=== PATIENT | male | born 1950 | race Caucasian/White ===

== ENCOUNTER 2022-10-09 08:15 | Outpatient (REF) | payer MEDICARE, SELFPAY ==
[2022-10-09 11:19] LABS: MANUAL DIFF FLAG NO
[2022-10-09 11:26] LABS: Appearance Urine Clear; Color Urine Yellow; Glucose Urine UA Negative (Negative); Leukocyte Esterase Urine Negative (Negative); Nitrite Urine Negative (Negative); Urine Blood Negative (Negative); Urine Ketones Negative (Negative); Urine Protein Negative (Neg-Trace)
[2022-10-09 11:32] LABS: Basophils Absolute Auto 0.1 X10*3/uL (0.0-0.2); Basophils Percent Auto 0.9 % (0-2); Eosinophils Absolute Auto 0.3 X10*3/uL (0.0-0.4); Eosinophils Percent Auto 4.4 % (0-4); Hematocrit 47.5 % (42.0-52.0); Hemoglobin 15.5 g/dl (14.0-18.0); Imm Gran Abs Auto 0.02 X10*3/uL (0.00-0.03); Imm Gran Pct Auto 0.3 % (0.0-0.4); Lymphocytes Absolute Auto 2.2 X10*3/uL (1.2-4.9); Lymphocytes Percent Auto 33.1 % (20-40); Mean Corpuscular HGB Conc 32.6 g/dl (31.0-36.0); Mean Corpuscular Hemoglobin 30.3 pg (27.0-33.0); Monocytes Absolute Auto 0.8 X10*3/uL (0.1-1.2); Monocytes Percent Auto 11.5 % (2-11); Neutrophils Absolute Auto 3.2 x10*3/uL (2.0-8.3); Neutrophils Percent Auto 49.8 % (45-73); Platelet Count 227 X10*3/uL (160-400); Red Blood Count 5.11 X10*6/uL (4.60-5.80); Red Cell Distribution Width 13.4 % (11.0-16.0); White Blood Count 6.5 X10*3/uL (4.8-10.8)
[2022-10-09 12:04] LABS: Alanine Aminotransferase 54 U/L (0-40); Albumin Level 4.3 g/dL (3.5-5.0); Alkaline Phosphatase 66 U/L (39-117); Anion Gap 11 (12-20); Aspartate Amino Transferase 35 U/L (5-37); Bilirubin Total 0.7 mg/dL (0.0-1.0); Blood Urea Nitrogen 15 mg/dL (9-16); Calcium 9.2 mg/dL (8.4-10.2); Carbon Dioxide 28 mmol/L (22-29); Chloride 106 mmol/L (96-108); Cholesterol 169 mg/dL; Estimated Glomerular Filt Rate > 60; Glucose Fasting 97 mg/dL (60-99); HDL Cholesterol 35 mg/dL; LDL Cholesterol Calculated 110 mg/dl; Potassium 4.4 mmol/L (3.3-5.1); Sodium 141 mmol/L (135-145); Triglycerides 121 mg/dL
[2022-10-09 12:06] LABS: Prostate Specific Antigen Scr 2.62 ng/mL (<0.05-4.0)
[2022-10-09 12:18] LABS: Erythrocyte Sedimentation Rate 16 MM/HR (0-15)
[2022-10-09 12:28] LABS: Microalbumin Urine < 5.0 mg/L
== END 2022-10-09 08:16 | disposition home or self-care (01) ==
LOC: HO.WFDLDS 08:15
PROVIDERS: Visit Provider Family Medicine
DX: Z00.00 Encounter for general adult medical examination without abnormal findings (principal); Z12.5 Encounter for screening for malignant neoplasm of prostate; M25.531 Pain in right wrist; I10 Essential (primary) hypertension
CPT/HCPCS: 36415; 80053; 80061; 81003; 82043; 84153; 84443; 85025; 85652

== ENCOUNTER 2023-02-06 08:55 | Outpatient (REF) | payer MEDICARE, SELFPAY ==
[2023-02-06 12:46] LABS: Alanine Aminotransferase 22 U/L (0-40); Alkaline Phosphatase 53 U/L (39-117); Anion Gap 11 (12-20); Aspartate Amino Transferase 27 U/L (5-37); Bilirubin Total 0.6 mg/dL (0.0-1.0); Blood Urea Nitrogen 17 mg/dL (9-16); Calcium 8.7 mg/dL (8.4-10.2); Carbon Dioxide 24 mmol/L (22-29); Chloride 108 mmol/L (96-108); Cholesterol 106 mg/dL; Estimated Glomerular Filt Rate > 60; Glucose Fasting 100 mg/dL (60-99); HDL Cholesterol 50 mg/dL; LDL Cholesterol Calculated 44 mg/dl; Potassium 4.3 mmol/L (3.3-5.1); Sodium 139 mmol/L (135-145); Total Protein 6.5 g/dL (6.5-8.0); Triglycerides 60 mg/dL
== END 2023-02-06 08:56 | disposition home or self-care (01) ==
LOC: HO.WFDLDS 08:55
PROVIDERS: Visit Provider Family Medicine
DX: Z00.00 Encounter for general adult medical examination without abnormal findings (principal); R47.01 Aphasia; E78.5 Hyperlipidemia, unspecified
CPT/HCPCS: 36415; 80053; 80061

== ENCOUNTER 2023-08-18 14:18 | Outpatient (AMB) | payer MEDICARE, SELFPAY ==
--- NOTE | 2023-08-18 14:19 | MHC.PC.OV ---
Vital Signs 08/18/23 14:24 Height 5 ft 4 in Weight 148 lb BMI 25.4 BP 138/78 Blood Pressure Location Lt brachial Position Sitting Pulse 85 Pulse Source Pulse Oximeter Pulse Oximetry (%) 99 Oxygen Delivery Method Room Air Intake Visit Reasons: f/u chronic conditions Intake Note: Patient is here to follow up on chronic conditions. Allergies amoxicillin Allergy (Mild, Verified 08/18/23 14:25) Rash Penicillins Allergy (Mild, Verified 08/18/23 14:25) Rash Tobacco use date assessed: 08/18/23 Fall risk assessment: 1 Fall in past year Last assessed Fall Risk: 08/18/23 HPI f/u chronic conditions HPI Details 72 y/o male presents to f/u chronic conditions. Blood pressure today 138/78. He is on metoprolol 12.5mg daily. Pt has a hx of COPD. Calcific coronary artery disorder PFSH Social History Housing: House Patient Tobacco Use Status: Former Tobacco user e-Cigarette/Vaping Use: Never Used service: No Current occupational status: retired Cognitive needs: No Hearing needs: Yes Vision needs: No Questionnaire Thrive Questionnaire Date Thrive assessed: 10/07/22 JORDON-7 AMB Questionnaire JORDON-7 Date JORDON - 7 assessed: 10/08/22 Source: Developed by Drs. Emanuel Gates, Kristina Hermosillo, Jett Blankenship and colleagues, with an educational angel from [employer]. Physical exam (Primary Care) Vital Signs: Last Vital Signs Pulse 85 08/18/23 14:24 BP 138/78 08/18/23 14:24 Pulse Ox 99 08/18/23 14:24 Oxygen Delivery Method Room Air 08/18/23 14:24 BMI result Body Mass Index 25.4 Tobacco/Smoking Status: Tobacco use Status Tobacco use date assessed 08/18/23 08/18/23 14:27 Patient Tobacco Use Status Former Tobacco user 08/18/23 14:24 e-Cigarette/Vaping Use Never Used 08/18/23 14:24 Thrive Assessment: Date of Thrive Assessment Date Thrive assessed 10/07/22 08/18/23 14:24 Assessment and Plan Assessment & Plan (1) Hypertension: Code(s): I10 - Essential (primary) hypertension Plan: Fair?control. Goal?is?less?than?130/80 Continue?current?medication?regimen Will?follow-up?in?3?months (2) COPD (chronic obstructive pulmonary disease): Code(s): J44.9 - Chronic obstructive pulmonary disease, unspecified Plan: Currently?stable Lungs?are?clear?bilaterally (3) Coronary artery disease: Code(s): I25.10 - Atherosclerotic heart disease of [place] coronary artery without angina pectoris Plan: Followed?by?Dr. Cortes, cardiology Recent?EKG?and?stress?test?were?okay Stable Did?not?tolerate?Repatha?or?statins Continue?Zetia.??Advised?aspirin Follow-up?with?Cardiology?as?recommend (4) Hyperlipidemia: Code(s): E78.5 - Hyperlipidemia, unspecified Plan: Does?not?tolerate?statins?or?Repatha He?is?on?Zetia Will?check?lipids?prior?to?next?visit (5) Difficulty sleeping: Code(s): G47.9 - Sleep disorder, unspecified Plan: Can?try?hydroxyzine Otherwise?using?lorazepam Stable (6) Right shoulder pain: Code(s): M25.511 - Pain in right shoulder Plan: Ongoing?right?shoulder?and?right?neck?pain. Referred?for?physical?therapy Can?use?Aspercreme Ice/heat (7) Neck pain on right side: Code(s): M54.2 - Cervicalgia Plan: As?above Orders: Orders PT Evaluation and Treatment Today M25.511 - Pain in right shoulder, M54.2 - Cervicalgia Comprehensive [place]. Panel Fast Today Z00.00 - Encounter for general adult medical examination without abnormal findings Lipid Panel Today Z00.00 - Encounter for general adult medical examination without abnormal findings Medications: New hydroxyzine HCl 50 mg PO BEDTIME 30 tabs 0RF 30 days Coding Level of Care Code Est Pt Level 4 (86425) Diagnoses Hypertension I10 COPD (chronic obstructive pulmonary disease) J44.9 Coronary artery disease I25.10 Hyperlipidemia E78.5 Difficulty sleeping G47.9 Right shoulder pain M25.511 Neck pain on right side M54.2
[2023-08-18 14:24] VITALS: BP 138/78; PULSE 85; O2SAT 99; BMI 25.4
== END 2023-08-18 15:29 | disposition home or self-care (01) ==
PROVIDERS: PCP Family Medicine; Visit Provider Family Medicine
DX: I10 Essential (primary) hypertension (principal); J44.9 Chronic obstructive pulmonary disease, unspecified; I25.10 Atherosclerotic heart disease of native coronary artery without angina pectoris; E78.5 Hyperlipidemia, unspecified; G47.9 Sleep disorder, unspecified; M25.511 Pain in right shoulder; M54.2 Cervicalgia
CPT/HCPCS: 99214

== ENCOUNTER 2023-11-16 07:01 | Outpatient (REF) | payer MEDICARE, SELFPAY ==
[2023-11-16 12:08] LABS: Alanine Aminotransferase 31 U/L (0-40); Albumin Level 4.3 g/dL (3.5-5.0); Alkaline Phosphatase 53 U/L (39-117); Anion Gap 11 (12-20); Aspartate Amino Transferase 26 U/L (5-37); Bilirubin Total 0.5 mg/dL (0.0-1.0); Blood Urea Nitrogen 18 mg/dL (9-16); Calcium 9.4 mg/dL (8.4-10.2); Carbon Dioxide 29 mmol/L (22-29); Chloride 106 mmol/L (96-108); Cholesterol 237 mg/dL (<200); Estimated Glomerular Filt Rate > 60; Glucose Fasting 92 mg/dL (60-99); HDL Cholesterol 46 mg/dL (>40); LDL Cholesterol Calculated 159 mg/dL (<100); Potassium 4.3 mmol/L (3.3-5.1); Sodium 142 mmol/L (135-145); Total Protein 7.4 g/dL (6.5-8.0); Triglycerides 161 mg/dL (<150)
== END 2023-11-16 07:02 | disposition home or self-care (01) ==
LOC: HO.WFDLDS 07:01
PROVIDERS: Visit Provider Family Medicine
DX: Z00.00 Encounter for general adult medical examination without abnormal findings (principal)
CPT/HCPCS: 36415; 80053; 80061

== ENCOUNTER 2023-11-18 14:22 | Outpatient (AMB) | payer MEDICARE, SELFPAY ==
--- NOTE | 2023-11-18 14:24 | MHC.PC.OV ---
Vital Signs 11/18/23 14:25 Height 5 ft 4 in Weight 155 lb 4 oz BMI 26.6 BP 124/76 Blood Pressure Location Rt brachial Position Sitting Respiration 13 Pulse 76 Pulse Source Pulse Oximeter Temp 97.6 F Temp Source Temporal Artery Scan Pulse Oximetry (%) 98 Oxygen Delivery Method Room Air Intake Visit Reasons: f/u chronic conditions Eligibility Technician Required: No Accompanied by: Self / Same As Patient Allergies amoxicillin Allergy (Mild, Verified 11/18/23 14:33) Rash Penicillins Allergy (Mild, Verified 11/18/23 14:33) Rash Tobacco use date assessed: 11/18/23 Fall risk assessment: No Falls in past year Last assessed Fall Risk: 11/18/23 Dental Screening Dental Screen Date: 11/18/23 Did you have a dental visit in the last 12 months?: Yes Did you have a dental problem in the last 6 months where you did not have access to dental care?: No Was dental information given to patient?: Patient has dentist HPI f/u chronic conditions HPI Details 73 y/o male with known CAD presents to f/u chronic conditions. Blood pressure today 124/76. He is on metoprolol 12.5mg daily. Labs were drawn 11/16/23. Reviewed labs with pt. Triglycerides 161. TC 237. LDL 159. HDL 46. He states he continues to tolerate ezetimibe 10mg daily. HPI Comments History of Present Illness Details Documentation assistance for Lucho Hairston MD, was provided by Yang Sharma, Senior Commercial Loan Officer on 11/18/2023 2:46 PM EST. I, Dr. Hairston, have read, observed, and verified documentation. [facility] Medical History No pertinent past medical history Surgical History No pertinent past surgical history Family History Other Substance abuse Social History Housing: House Patient Tobacco Use Status: Former Tobacco user e-Cigarette/Vaping Use: Never Used service: No Current occupational status: retired Cognitive needs: No Hearing needs: No Vision needs: No Questionnaire Thrive Questionnaire Date Thrive assessed: 10/07/22 JORDON-7 AMB Questionnaire JORDON-7 Date JORDON - 7 assessed: 10/08/22 Source: Developed by Drs. Emanuel Gates, Kristina Hermosillo, Jett Blankenship and colleagues, with an educational angel from [employer]. Review of Systems Const Denies chills, Denies fatigue, Denies fever(s), Denies headache(s) and Denies weakness ENT Denies dizziness and Denies headache(s) Card Denies dyspnea Resp Denies cough, Denies dyspnea, Denies wheezing and Denies other (shortness of breath) Musc Denies numbness and Denies tingling Neuro Denies dizziness, Denies headache(s), Denies numbness, Denies tingling and Denies weakness Psych Denies anxiety and Denies depression Endo Denies fatigue Aller/Immun Denies wheezing Physical exam (Primary Care) Vital Signs: Last Vital Signs Temp 97.6 F 11/18/23 14:25 Pulse 76 11/18/23 14:25 Resp 13 11/18/23 14:25 BP 124/76 11/18/23 14:25 Pulse Ox 98 11/18/23 14:25 Oxygen Delivery Method Room Air 11/18/23 14:25 BMI result Body Mass Index 26.6 Tobacco/Smoking Status: Tobacco use Status Tobacco use date assessed 11/18/23 11/18/23 14:36 Patient Tobacco Use Status Former Tobacco user 11/18/23 14:36 e-Cigarette/Vaping Use Never Used 11/18/23 14:36 Thrive Assessment: Date of Thrive Assessment Date Thrive assessed 10/07/22 11/18/23 14:36 Const General: well developed; No acute distress Nutritional Appearance: well nourished Orientation/consciousness: patient oriented x3 HENMT Head: Yes normocephalic and Yes atraumatic Eyes General: appearance normal, both eyes and all related structures Pupils: Equal, round and reactive pupils present EOM: EOMs intact bilaterally Resp Effort & Inspection: normal respiratory effort Neuro General: patient oriented x3 and gait normal Cranial nerves: Yes Equal, round and reactive pupils present Psych Affect: normal affect Assessment and Plan Assessment & Plan (1) Hypertension: Code(s): I10 - Essential (primary) hypertension Plan: Appears?well?controlled.??Goal?is?less?than?130/80?for?patient?with?coronary?artery?disease Continue?current?medication?regimen (2) Hyperlipidemia: Code(s): E78.5 - Hyperlipidemia, unspecified Plan: Patient?was?unable?to?tolerate?statins?and?Repatha. He?stopped?these?and?has?only?been?on?Zetia. Lipid?levels?now?much?higher?and?I?made?patient?aware?of?this. He?seems?to?minimize?the?gravity?of?this. Advised?he?discuss?further?with? Continue?Zetia Continue?to?work?at?diet?exercise?and?weight?control. (3) Coronary artery disease: Code(s): I25.10 - Atherosclerotic heart disease of [place] coronary artery without angina pectoris Plan: As?above,?follow-up?with?Dr. Cortes (4) Difficulty sleeping: Code(s): G47.9 - Sleep disorder, unspecified Plan: Had?difficulty?with?sleep?at?last?visit.??He?is?already?on?lorazepam. Gave?him?a?script?for?hydroxyzine.??He?says?this?caused?strange?dreams. He?will?try?breaking?hydroxyzine?in?half Continue?lorazepam?as?prescribed Coding Level of Care Code Est Pt Level 4 (67828) Diagnoses Hypertension I10 Hyperlipidemia E78.5 Coronary artery disease I25.10 Difficulty sleeping G47.9
[2023-11-18 14:25] VITALS: BP 124/76; PULSE 76; RESP 13; TEMP 36.4; O2SAT 98; BMI 26.6
== END 2023-11-18 14:56 | disposition home or self-care (01) ==
PROVIDERS: PCP Family Medicine; Visit Provider Family Medicine
DX: I10 Essential (primary) hypertension (principal); E78.5 Hyperlipidemia, unspecified; I25.10 Atherosclerotic heart disease of native coronary artery without angina pectoris; G47.9 Sleep disorder, unspecified
CPT/HCPCS: 99214

== ENCOUNTER 2023-12-08 15:56 | Outpatient (REF) | payer MEDICARE, SELFPAY ==
--- NOTE | ~2023-12-08 | XR_ITS ---
EXAMINATION: XR HAND, LEFT CLINICAL INFORMATION: Pain COMPARISON: None available. TECHNIQUE: PA, lateral, and oblique views of the left hand. FINDINGS: Visualized portion of the distal radius and ulna demonstrate no fracture. Carpal rows are maintained. No carpal, metacarpal or phalangeal fracture. Mild degenerative changes of scattered IP joints. No localized soft tissue swelling. No radiopaque foreign body. XR/XR hand LT min 3V IMPRESSION: Mild degenerative changes of the left hand. No fracture.
== END 2023-12-08 15:57 | disposition home or self-care (01) ==
LOC: HO.HOSX 15:56
PROVIDERS: Visit Provider Orthopaedic Surgery
DX: M79.642 Pain in left hand (principal)
CPT/HCPCS: 73130

== ENCOUNTER 2023-12-09 09:55 | Outpatient (AMB) | payer MEDICARE, SELFPAY ==
--- NOTE | 2023-12-09 09:55 | MHC.OFFVIS ---
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 States pain started about 6 months ago. Pain is mainly on his ring finger where his knuckle is. He states sometimes it will lock in place. Pt denies any previous injury to it. Pt also denies any numbness or tingling. 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 He complains of pain primarily in his left ring finger. He says his ring finger occasionally locks at time, which is painful. He denies any falls or known injury. He denies any numbness or tingling. He has CAD & COPD. PFS Medical History No pertinent past medical history Surgical History No pertinent past surgical history Family History Other Substance abuse Social History (Updated 12/09/23 @ 10:06 by Juliet Lee CMA) Housing: House Patient Tobacco Use Status: Former Tobacco user e-Cigarette/Vaping Use: Never Used service: No Current occupational status: retired Current occupation: Left hand dominant Cognitive needs: No Hearing needs: No Vision needs: No Review of Systems Const All systems reviewed & are unremarkable except as noted in HPI and below Physical Exam Const General: cooperative, healthy appearing and no acute distress Orientation/consciousness: patient oriented x3 HEENT Head: Yes normocephalic and Yes atraumatic Eyes EOM: EOMs intact bilaterally Resp Effort & Inspection: normal respiratory effort and able to speak in complete sentences Cardio Jugular venous distension: no JVD Skin General skin exam: turgor normal Rashes: no rashes Neuro General: patient oriented x3 Extrem Other: Evaluation of Left Upper Extremity: The patient is alert, oriented, and in no acute distress Neuro: Median, Ulnar, Radial nerves motor and sensory intact and sensation is normal to the tips of all digits Vascular: Cap refill brisk ROM: He can make a fist and extend all his digits Some stiffness of the ring finger, likely from disuse Visible catching of the left ring finger Tender over the a1 lizett of the ring finger Skin: No lacerations or abrasions. General: No Ecchymosis. No Erythema or evidence of infection. Radiographs: 3 views of the left hand were taken and viewed by me today in clinic. They show no fractures or dislocations. Some early arthritic changes in multiple DIP joints and some early basal joint osteoarthritis Psych Appearance: grossly normal Affect: normal affect Attitude: cooperative Office Procedures Fracture Care Details: No fracture, injection Fracture Billing Code: Fracture Billing Code Assessment & Plan Assessment & Plan (1) Trigger finger, left ring finger: Code(s): M65.342 - Trigger finger, left ring finger (2) Coronary artery disease: Code(s): I25.10 - Atherosclerotic heart disease of [place] coronary artery without angina pectoris (3) COPD (chronic obstructive pulmonary disease): Code(s): J44.9 - Chronic obstructive pulmonary disease, unspecified Plan Assessment & Plan: 1. Left ring finger trigger finger I educated him about this condition I discussed operative and non-operative treatment options The patient would like to proceed with an injection I discussed activity modification, he should work on gentle ROM exercises at home to reduce his finger stiffness Injection #1: The risks and benefits of a steroid injection including but not limited to risk of damage to blood vessels, nerves, tendons, infection, skin bleaching, failure to improve symptoms, increased pain, and possible need for further injections or other intervention were discussed with the patient and the patient wishes to proceed with the steroid injection. Once consent was obtained, I sterilely prepped the area over the A1 lizett of the flexor tendon sheath of the Left ring finger. I then injected the flexor tendon sheath with a combination of 1 mL of dexamethasone (4mg/ml), and 1% lidocaine. The patient tolerated the procedure well with no complications. If the patient continues to have locking and catching 4-6 weeks following this injection, they may call to schedule appointment to discuss alternative treatment options Follow-up prn Scribed for Monique Hargrove MD by Andrea Perez, medical detail representative, on 12/09/23 at 10:55 AM, EST. Orders: Orders XR hand LT min 3V Today M79.642 - Pain in left hand Coding Level of Care Code New Pt Level 3 (43912) Diagnoses Trigger finger, left ring finger M65.342 Coronary artery disease I25.10 COPD (chronic obstructive pulmonary disease) J44.9 CPT Codes Fracture Care - Fracture Billing Code: Fracture Billing Code ([id number])
--- OUTSIDE RECORDS SUMMARY | 2023-12-09 09:56 | XMS_ITS | Continuity of Care Document ---
Author Name Unknown Organization [facility] Address [address] [place] [address]- Care Team Providers Care Manager Freelance Name Role Phone Reynold Pratt MD Primary Care Physician [place] [facility] [place] - [place]20 [facility] [address] [place] [id number]- [facility] Allergies, Adverse Reactions, Alerts Substance Reaction Severity Status penicillin Persistent Moderate Active Immunizations Given and Recorded Vaccine Date Status Refusal Reason influenza virus vaccine, inactivated 05/23/19 Melo rded Medications aspirin 81 mg oral delayed release tablet 81 mg, 1, tablet, By Mouth, Daily, # 90 tablet, Refills 0, Maintenance, 02/08/20 13:52:00 EDT Start Date: 02/08/20 Status: Ordered Bilberry By Mouth, Daily, 0 Refills, Maintenance, 02/07/19 10:10:26 EDT Start Date: 02/07/19 Status: Ordered ezetimibe 10 mg oral tablet 1 tablet = 10 mg, By Mouth, Daily, # 90 tablet, 1 Refills, Soft Stop, 12/19/19 10:55:00 EDT, [id number], 164, cm, 11/28/19 15:20:00 EDT, Height, 66, kg, 11/28/19 15:20:00 EDT, Dry Weight Start Date: 12/19/19 Status: Ordered gabapentin 600 mg oral tablet 1 tablet, By Mouth, 2 times a day, # 60 tablet, 3 Refills, Soft Stop, 12/19/19 20:30:00 EDT, [facility]/pharmacy #[id number], 164, cm, 11/28/19 15:20:00 EDT, Height, 66, kg, 11/28/19 15:20:00 EDT, Dry Weight Start Date: 12/19/19 Status: Ordered LORazepam 1 mg oral tablet 1 tablet = 1 mg, By Mouth, Daily at bedtime, PRN as needed for anxiety, # 30 tablet, 0 Refills, Soft Stop, 02/29/20 7:52:00 EDT, [facility] # [id number], 164, cm, 02/08/20 13:38:00 EDT, Height, 66, kg,11/28/19 15:20:00 EDT, Dry Weight Start Date: 02/29/20 Status: Ordered melatonin 10 mg oral tablet, extended release 1 tablet = 10 mg, By Mouth, Daily at bedtime, PRN as needed for sleep, # 60 tablet, 0 Refills, Maintenance, 02/07/19 10:10:39 EDT, ER Tablet Start Date: 02/07/19 Status: Ordered PreserVision AREDS 2 1 capsule, By Mouth, Daily, 0 Refills, Maintenance, 02/07/19 10:10:19 EDT Start Date: 02/07/19 Status: Ordered Repatha 140 mg/mL subcutaneous solution = 140 mg, Subcutaneous Infusion, Every 14 days, # 2 each, 0 Refills, Maintenance, 02/17/20 11:16:00EDT, [facility] # [id number], 164, cm, 02/08/20 13:38:00 EDT, Height, 66, kg, 11/28/19 15:20:00 EDT, Dry Weight Start Date: 02/17/20 Status: Ordered Repatha 140 mg/mL subcutaneous solution = 140 mg, Subcutaneous Infusion, Every 14 days, # 2 each, 6 Refills, Maintenance, 02/09/20 10:36:00EDT, [facility] #[id number], 164, cm, 02/08/20 13:38:00 EDT, Height, 66, kg, 11/28/19 15:20:00 EDT, DryWeight Start Date: 02/09/20 Status: Ordered Repatha SureClick 140 mg/mL subcutaneous solution = 140 mg, Subcutaneous Infusion, Every 14 days, # 2 each, 0 Refills, Maintenance, 02/08/20 15:51:00EDT, [facility][id number], 164, cm, 02/08/20 13:38:00 EDT, Height, 66, kg, 11/28/19 15:20:00 EDT, DryWeight Start Date: 02/08/20 Status: Ordered tamsulosin 0.4 mg oral capsule 0.4 mg, 1, capsule, By Mouth, Daily at bedtime, # 90 capsule, Refills 1, Tot. Refills 1, Soft Stop,12/30/19 10:36:00 EDT, Route to Pharmacy Electronically, [facility]/pharmacy #[id number], 164, cm, 11/28/19 15:20:00 EDT, Height, 66, kg, 11/28/19 15:20:00 EDT, Dry... Start Date: 12/30/19 Status: Ordered Problem List Condition Effective Dates Status Health Status Inform ant Anxiety(Confirmed) Active Arteriosclerotic vascular disease(Confirmed) Active Calcification of coronary artery(Confirmed) Active Constipation(Confirmed) Active Sleep disturbance(Confirmed) Active Rash(Confirmed) Active Gastroesophageal reflux disease(Confirmed) Active Hyperlipidemia(Confirmed) Active Inguinal hernia(Confirmed) Active Insomnia(Confirmed) Active Pruritus(Confirmed) Active Neck pain(Confirmed) Active Papule(Confirmed) Active Neuropathic pain of hand(Confirmed) Active Prostatism(Confirmed) Active Seborrheic dermatitis(Confirmed) Active Right shoulder pain(Confirmed) Active Tinnitus(Confirmed) Active Tobacco use and exposure - finding(Confirmed) Active Social History Social History Type Response Smoking Status Former smoker, quit more than 30 days ago entered on: 03/03/19 Sex
--- OUTSIDE RECORDS SUMMARY | 2023-12-09 09:56 | XMS_ITS | Continuity of Care Document ---
Author Name Unknown Organization [facility] Address [address] [place] [address]- Care Team Providers Care Liquor Rectifier Name Role Phone Reynold Pratt MD Primary Care Physician [place] [facility] [place] 12/25/[place] [facility] [address] [address]- [facility] Attending Physician: Andrea Peterson MD Admitting Physician: Andrea Peterson MD Referring Physician: Andrea Peterson MD Allergies, Adverse Reactions, Alerts Substance Reaction Severity Status penicillin Persistent Moderate Active Immunizations Given and Recorded Vaccine Date Status Refusal Reason influenza virus vaccine, inactivated 05/23/19 Melo rded Medications Bilberry By Mouth, Daily, 0 Refills, Maintenance, 02/07/19 10:10:26 EDT Start Date: 02/07/19 Status: Ordered ezetimibe 10 mg oral tablet 1 tablet = 10 mg, By Mouth, Daily, # 90 tablet, 1 Refills, Soft Stop, 12/19/19 10:55:00 EDT, [id number], 164, cm, 11/28/19 15:20:00 EDT, Height, 66, kg, 11/28/19 15:20:00 EDT, Dry Weight Start Date: 12/19/19 Status: Ordered gabapentin 600 mg oral tablet 1 tablet, By Mouth, 2 times a day, # 60 tablet, 3 Refills, Soft Stop, 12/19/19 20:30:00 EDT, [facility]/pharmacy #[id number], 164, cm, 11/28/19 15:20:00 EDT, Height, 66, kg, 11/28/19 15:20:00 EDT, Dry Weight Start Date: 12/19/19 Status: Ordered LORazepam 1 mg oral tablet 1 tablet = 1 mg, By Mouth, Daily at bedtime, PRN as needed for anxiety, # 30 tablet, 0 Refills, Soft Stop, 12/19/19 20:32:00 EDT, [facility]/pharmacy #[id number], 164, cm, 11/28/19 15:20:00 EDT, Height, 66, kg, 11/28/19 15:20:00 EDT, Dry Weight Start Date: 12/19/19 Status: Ordered melatonin 10 mg oral tablet, extended release 1 tablet = 10 mg, By Mouth, Daily at bedtime, PRN as needed for sleep, # 60 tablet, 0 Refills, Maintenance, 02/07/19 10:10:39 EDT, ER Tablet Start Date: 02/07/19 Status: Ordered NuLYTELY with Flavor Packs oral powder for reconstitution 240 mL, By Mouth, Every 10 minutes, # 1 each, 0 Refills, Maintenance, 10/14/19 12:32:00 EST, REC Powder, [facility], test date 11/22/19, 240 mL By Mouth Every 10 minutes, 163, cm, 10/11/19 14:44:00 EST, Height, 66, kg, 09/26/19 22:40:00 EST,... Start Date: 10/14/19 Status: Ordered PreserVision AREDS 2 1 capsule, By Mouth, Daily, 0 Refills, Maintenance, 02/07/19 10:10:19 EDT Start Date: 02/07/19 Status: Ordered tamsulosin 0.4 mg oral capsule See Instructions, TAKE 1 CAPSULE BY MOUTH EVERYDAY AT BEDTIME, # 30 capsule, Refills 1, Tot. Refills 1, Soft Stop, 06/28/19 19:28:03 EDT, Instructions Replace Required Details, Route to Pharmacy Electronically, [id number], CV... Start Date: 06/28/19 Status: Ordered Problem List Condition Effective Dates [...]
--- OUTSIDE RECORDS SUMMARY | 2023-12-09 09:56 | XMS_ITS | Continuity of Care Document ---
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 Name Role Phone Reynold Pratt MD Primary Care Physician [place] [facility] [place](s): 10/17/19 - 10/17/[address] [address]- [facility] Attending Physician: Reynold Pratt MD Allergies, Adverse Reactions, Alerts Substance Reaction Severity Status penicillin Persistent Moderate Active Immunizations Given and Recorded Vaccine Date Status Refusal Reason influenza virus vaccine, inactivated 05/23/19 Melo rded Medications Azithromycin 5 Day Dose Pack 250 mg oral tablet 1 pack/packet, By Mouth, Once, as directed on package labeling, # 6 tablet, 0 Refills, Soft Stop, 10/11/19 15:12:00 EST, Tablet, [facility], 163, cm, 10/11/19 14:44:00 EST, Height, 66, kg,09/26/19 22:40:00 EST, Dry Weight Start Date: 10/11/19 Status: Ordered Bilberry 0 Refills, Maintenance, 02/07/19 10:10:26 EDT Start Date: 02/07/19 Status: Ordered CeleBREX 200 mg oral capsule 1 capsule = 200 mg, By Mouth, 2 times a day, # 60 capsule, 0 Refills, Maintenance, 08/01/19 16:57:27 EST, Capsule Start Date: 08/01/19 Status: Ordered ezetimibe 10 mg oral tablet 1 tablet = 10 mg, By Mouth, Daily, # 90 tablet, 1 Refills, Soft Stop, 09/09/19 14:38:00 EST, [facility], 164, cm, 07/28/19 14:04:00 EST, Height Start Date: 09/09/19 Status: Ordered ezetimibe 10 mg oral tablet See Instructions, # 90 tablet, Refills 1 Tot. Refills 1, TAKE 1 TABLET BY MOUTH EVERY DAY, [facility]/pharmacy #[id number] Start Date: 05/03/19 Status: Ordered gabapentin 600 mg oral tablet 1 tablet, By Mouth, 2 times a day, # 60 tablet, Refills 3 Tot. Refills 3, [facility]/pharmacy #[id number] Start Date: 08/08/19 Status: Ordered ipratropium nasal 21 mcg/inh spray See Instructions, PRN Nasal Congestion, 1 spray each nostril BID, # 1 each, 4 Refills, Maintenance,06/15/19 13:47:40 EDT, 1 spray each nostril BID,PRN:Nasal Congestion Start Date: 06/15/19 Status: Ordered LORazepam 1 mg oral tablet 1 tablet = 1 mg, By Mouth, Daily at bedtime, PRN as needed for anxiety, # 30 tablet, 0 Refills, Soft Stop, 09/09/19 14:37:00 EST, [facility], 164, cm, 07/28/19 14:04:00 EST, Height Start Date: 09/09/19 Status: Ordered LORazepam 1 mg oral tablet See Instructions, TAKE 1 TABLET BY MOUTH AT BEDTIME NEEDED FOR ANIXETY, # 10 tablet, 0 Refills, Soft Stop, 06/29/19 15:01:00 EDT Start Date: 06/29/19 Status: Ordered melatonin 10 mg oral tablet, extended release 1 tablet = 10 mg, By Mouth, Daily at bedtime, PRN as needed for sleep, # 60 tablet, 0 Refills, Maintenance, 02/07/19 10:10:39 EDT, ER Tablet Start Date: 02/07/19 Status: Ordered mirtazapine 15 mg oral tablet 1 tablet = 15 mg, By Mouth, Daily at bedtime, # 30 tablet, 3 Refills, Maintenance, 08/20/19 2:00:34EST, Tablet, [facility]/pharmacy #[id number], 164, cm, 07/28/19 14:04:53 EST, Height Start Date: 08/20/19 Status: Ordered NuLYTELY with Flavor Packs oral powder for reconstitution 240 mL, By Mouth, Every 10 minutes, # 1 each, 0 Refills, Maintenance, 10/14/19 12:32:00 EST, REC Powder, [facility], test date 11/22/19, 240 mL [...] Replace Required Details, Route to Pharmacy Electronically, [id number], CV... Start Date: 06/28/19 Status: Ordered Problem List Condition Effective Dates Status Health Status Inform ant Anxiety(Confirmed) Active Arteriosclerotic vascular disease(Confirmed) Active Calcification of coronary artery(Confirmed) Active Constipation(Confirmed) Active Sleep disturbance(Confirmed) Active Rash(Confirmed) Active Gastroesophageal reflux disease(Confirmed) Active Hyperlipidemia(Confirmed) Active Inguinal hernia(Confirmed) Active Insomnia(Confirmed) Active Pruritus(Confirmed) Active Neck pain(Confirmed) Active Papule(Confirmed) Active Prostatism(Confirmed) Active Seborrheic dermatitis(Confirmed) Active Right shoulder pain(Confirmed) Active Tinnitus(Confirmed) Active Tobacco use and exposure - finding(Confirmed) Active Social History Social History Type Response Smoking Status Former smoker, quit more than 30 days ago entered on: 03/03/19 Sex
--- OUTSIDE RECORDS SUMMARY | 2023-12-09 09:56 | XMS_ITS | Continuity of Care Document ---
Author Name Unknown Organization [facility] Address [address] [place] [address]- Care Team Providers Care C Consultant Name Role Phone Reynold Pratt MD Primary Care Physician [place] [facility] [place] 10[place]/22 [facility] [address] [place] [address]- Attending Physician: Bert Song Admitting Physician: Bert Song Referring Physician: AdmtrBert Allergies, Adverse Reactions, Alerts Substance Reaction Severity Status amoxicillin Active penicillin Persistent Moderate Active Aleve Active Immunizations Given and Recorded Vaccine Date Status Refusal Reason [id number] bivalent booster vax 05/30/22 Recorded pneumococcal 20-valent conjugate vaccine 05/24/22 Recorded influenza virus vaccine, inactivated 05/24/22 Melo rded influenza virus vaccine, inactivated 05/28/21 Melo rded influenza virus vaccine, inactivated 05/07/20 Melo rded influenza virus vaccine, inactivated 05/23/19 Melo rded influenza virus vaccine, inactivated 06/04/18 Melo rded influenza virus vaccine, inactivated 06/12/08 Melo rded influenza virus vaccine, inactivated 06/17/07 Melo rded influenza virus vaccine, inactivated 08/06/06 Melo rded influenza virus vaccine, inactivated 07/11/05 Melo rded SARS-CoV-2 (COVID-19) mRNA-1273 vaccine 1 01/07/22 Given SARS-CoV-2 (COVID-19) mRNA-1273 vaccine 07/01/21 R ecorded SARS-CoV-2 (COVID-19) mRNA-1273 vaccine 2 07/01/21 Recorded SARS-CoV-2 (COVID-19) mRNA-1273 vaccine 11/26/20 R ecorded SARS-CoV-2 (COVID-19) mRNA-1273 vaccine 11/26/20 R ecorded SARS-CoV-2 (COVID-19) mRNA-1273 vaccine 11/05/20 R ecorded SARS-CoV-2 (COVID-19) mRNA-1273 vaccine 10/29/20 R ecorded SARS-CoV-2 (COVID-19) mRNA-1273 vaccine 10/29/20 R ecorded tetanus-diphtheria toxoids (Td) 3 12/23/21 Given tetanus-diphtheria toxoids (Td) 12/31/04 Recorded pneumococcal 23-valent vaccine 06/12/08 Recorded 1Result Comment: [facility] [id number] 2Result Comment: err 3Result Comment: [facility] [id number] Medications aspirin 81 mg oral delayed release tablet 81 mg, 1, tablet, By Mouth, Daily, # 90 tablet, Refills 0, Maintenance, 02/08/20 13:52:00 EDT Start Date: 02/08/20 Status: Ordered CoQ10 300 mg oral capsule 1 capsule = 300 mg, By Mouth, Daily, # 100 capsule, 1 Refills, Maintenance, 09/18/22 16:02:00 EST, Capsule, [facility]/pharmacy #0838, 163, cm, 09/18/22 15:16:00 EST, Height, 68, kg, 12/24/21 4:27:00 EDT, Dry Weight Start Date: 09/18/22 Status: Ordered ezetimibe 10 mg oral tablet 1 tablet, By Mouth, Daily, # 90 tablet, 1 Refills, Maintenance, 07/11/22 9:20:00 EDT, [facility], 163, cm, 07/02/22 9:14:00 EDT, Height, 68, kg, 12/24/21 4:27:00 EDT, Dry Weight Start Date: 07/11/22 Status: Ordered gabapentin 600 mg oral tablet 1 tablet, By Mouth, 2 times a day, # 180 tablet, 0 Refills, Maintenance, 09/02/22 13:11:00 EST, [facility], 163, cm, 07/18/22 14:00:00 EST, Height, 68, kg, 12/24/21 4:27:00 EDT, Dry Weight Start Date: 09/02/22 Status: Ordered ICaps AREDS 2 oral capsule 0 Refills, Maintenance, 07/01/22 12:43:00 EDT, Partial fill upon patient request if the prescription is for a schedule II opioid drug. Start Date: 07/01/22 Status: Ordered LORazepam 1 mg oral tablet 1 tablet = 1 mg, By Mouth, Daily at bedtime, PRN as needed for anxiety, # 30 tablet, 0 Refills, Soft Stop, 10/30/22 17:34:00 EST, [facility]/pharmacy #[id number], 163, cm, 09/18/22 15:16:00 EST, Height, 68, kg, 12/24/21 4:27:00 EDT, Dry Weight Start Date: 10/30/22 Status: Ordered melatonin 10 mg oral tablet, extended release 1 tablet = 10 mg, By Mouth, Daily at bedtime, PRN as needed for sleep, # 60 tablet, 0 Refills, Maintenance, 02/07/19 10:10:39 EDT, ER Tablet Start Date: 02/07/19 Status: Ordered Metoprolol Succinate ER 25 mg oral tablet, extended release 1 tablet, By Mouth, Daily, # 90 tablet, 0 Refills, Maintenance, 08/06/22 15:12:00 EST, [facility] #[id number], 163, cm, 07/18/22 14:00:00 EST, Height, 68, kg, 12/24/21 4:27:00 EDT, Dry Weight Start Date: 08/06/22 Status: Ordered omeprazole 20 mg oral enteric coated capsule 1 capsule, By Mouth, Daily, # 90 capsule, 0 Refills, Maintenance, 08/18/22 11:53:00 EST, [facility] 08884, 163, cm, 07/18/22 14:00:00 EST, Height, 68, kg, 12/24/21 4:27:00 EDT, Dry Weight Start Date: 08/18/22 Status: Ordered PreserVision AREDS 2 1 capsule, By Mouth, Daily, 0 Refills, Maintenance, 02/07/19 10:10:19 EDT Start Date: 02/07/19 Status: Ordered Repatha SureClick 140 mg/mL subcutaneous solution = 140 mg, Subcutaneous Injection, Every 14 days, # 2 each, 0 Refills, Maintenance, 07/24/22 6:25:00EST, [facility][id number], Partial fill upon patient request if the prescription is for a schedule II opioid drug., 163, cm, 07/18/22 14:00:00 EST,... Start Date: 07/24/22 Stop Date: 08/23/22 Status: Ordered rosuvastatin 10 mg oral tablet 1 tablet = 10 mg, By Mouth, Daily, # 90 tablet, 1 Refills, Maintenance, 09/18/22 16:02:00 EST, Tablet, [facility]acy #0838, 163, cm, 09/18/22 15:16:00 EST, Height, 68, kg, 12/24/21 4:27:00 EDT, Dry Weight Start Date: 09/18/22 Status: Ordered tamsulosin 0.4 mg oral capsule 1, capsule, By Mouth, Daily at bedtime, # 90 capsule, Refills 0, Maintenance, 08/18/22 11:53:00 EST, Route to Pharmacy Electronically, [facility] [id number], 163, cm, 07/18/22 14:00:00 EST, Height, 68, kg,12/24/21 4:27:00 EDT, Dry Weight Start Date: 08/18/22 Status: Ordered Vitamin B12 0 Refills, Maintenance, 07/18/22 14:09:00 EST, Partial fill upon patient request if the prescription is for a schedule II opioid drug. Start Date: 07/18/22 Status: Ordered Vitamin D3 oral tablet 1 tablet = 10 mcg, By Mouth, Daily, 0 Refills, Maintenance, 07/18/22 14:08:00 EST, Partial fill upon patient request if the prescription is for a schedule II opioid drug. Start Date: 07/18/22 Status: Ordered Xeroform (4x9) See Instructions, # 10 each, Refills 0, Tot. Refills 0, Maintenance, Use sas directed to change dressing daily., 12/23/21 11:46:00 EDT, Supply Start Date: 12/23/21 Status: Ordered Problem List Condition Confirmation Course Effective Dates Status H ealth Status Informant AP (abdominal pain) Confirmed Active Anxiety Confirmed Active Arteriosclerotic vascular disease Confirmed Active Dorsal back pain Confirmed Active Calcification of coronary artery Confirmed Active Chronic neck pain Confirmed Active Constipation Confirmed Active Sleep disturbance Confirmed Active Dysphagia Confirmed Active Rash Confirmed Active Gastroesophageal reflux disease Confirmed Active Hyperlipidemia Confirmed Active Hypertension Confirmed Active Hypocalcemia Confirmed Active Inguinal hernia Confirmed Active Insomnia Confirmed Active Pruritus Confirmed Active Neck pain Confirmed Active Palpitation Confirmed Active Papule Confirmed Active Neuropathic pain of hand Confirmed Active Colon polyp Confirmed Active Prostatism Confirmed Active Seborrheic dermatitis Confirmed Active Right shoulder pain Confirmed Active Shoulder pain Confirmed Active Tinnitus Confirmed Active Tobacco use and exposure - finding Confirmed Active Brain TIA Confirmed Active Social History Social History Type Response Smoking Status Former smoker, quit more than 30 days ago; Other: quit 1992; entered on: 03/02/21 Sex Patient Care team information Care Team Personnel Name: Reynold Pratt MD Position: [facility] Primary Care Physician Member Role: PCP Address: Address: [address] [place] [address], [address] [facility], [place] [address]- Care Team Related Persons Name: ELDER ALEJANDRAAN Address: home [address] [place] [id number]
--- OUTSIDE RECORDS SUMMARY | 2023-12-09 09:56 | XMS_ITS | Continuity of Care Document ---
Author Name Unknown Organization [facility] Address [address] [place] [address]- Care Team Providers Care Field Observer Name Role Phone Santa KAUFFMAN, Reynold Segura Primary Care Physician En[place] [facility] [place] Date(s[place] 09/19/22 - 10/30/22 [facility] [address] [place] [address]- Attending Physician: Elan Faulkner MD Admitting Physician: Elan Faulkner MD Referring Physician: Reynold Pratt MD Allergies, Adverse Reactions, Alerts Substance Reaction Severity Status amoxicillin Active penicillin Persistent Moderate Active Aleve Active Immunizations Given and Recorded Vaccine Date Status Refusal Reason [id number] bivalent booster vax 05/30/22 Recorded pneumococcal 20-valent [...] pneumococcal 23-valent vaccine 06/12/08 Recorded 1Result Comment: [facility] [id number] 2Result Comment: err 3Result Comment: [facility] [id number] Medications aspirin 81 mg oral delayed release tablet 81 mg, 1, tablet, By Mouth, Daily, # 90 tablet, Refills 0, Maintenance, 02/08/20 13:52:00 EDT Start Date: 02/08/20 Status: Ordered CoQ10 300 mg oral capsule 1 capsule = 300 mg, By Mouth, Daily, # 100 capsule, 1 Refills, Maintenance, 09/18/22 16:02:00 EST, Capsule, [facility]/pharmacy #[id number], 163, cm, 09/18/22 15:16:00 EST, Height, 68, kg, 12/24/21 4:27:00 EDT, Dry Weight Start Date: 09/18/22 Status: Ordered ezetimibe 10 mg oral tablet 1 tablet, By Mouth, Daily, # 90 tablet, 1 Refills, Maintenance, 07/11/22 9:20:00 EDT, [facility], 163, cm, 07/02/22 9:14:00 EDT, Height, 68, kg, 12/24/21 4:27:00 EDT, Dry Weight Start Date: 07/11/22 Status: Ordered gabapentin 600 mg oral tablet 1 tablet, By Mouth, 2 times a day, # 180 tablet, 0 Refills, Maintenance, 09/02/22 13:11:00 EST, [facility], 163, cm, 07/18/22 14:00:00 EST, Height, 68, [...] 0 Refills, Soft Stop, 10/30/22 17:34:00 EST, [facility]/pharmacy #[id number], 163, cm, 09/18/22 15:16:00 EST, Height, [...] tablet, 0 Refills, Maintenance, 08/06/22 15:12:00 EST, [facility] #[id number], 163, cm, 07/18/22 14:00:00 EST, Height, 68, kg, 12/24/21 4:27:00 EDT, Dry Weight Start Date: 08/06/22 Status: Ordered omeprazole 20 mg oral enteric coated capsule 1 capsule, By Mouth, Daily, # 90 capsule, 0 Refills, Maintenance, 08/18/22 11:53:00 EST, [facility] 49348, 163, cm, 07/18/22 14:00:00 EST, Height, 68, [...] 1 Refills, Maintenance, 09/18/22 16:02:00 EST, Tablet, [facility]/pharmacy #[id number], 163, cm, 09/18/22 15:16:00 EST, Height, 68, kg, 12/24/21 4:27:00 EDT, Dry Weight Start Date: 09/18/22 Status: Ordered tamsulosin 0.4 mg oral capsule 1, capsule, By Mouth, Daily at bedtime, # 90 capsule, Refills 0, Maintenance, 08/18/22 11:53:00 EST, Route to Pharmacy Electronically, [facility] [id number], 163, cm, 07/18/22 14:00:00 EST, Height, 68, [...] Team Personnel Name: Reynold Pratt MD Position: [facility] Primary Care Physician Member Role: PCP Address: Address: [address] [place] [address], [address] [place] [address]- Care Team Related Persons Name: JUSTYN JEANA Address: home [address] [place] [id number]
--- OUTSIDE RECORDS SUMMARY | 2023-12-09 09:56 | XMS_ITS | Continuity of Care Document ---
Author Name Unknown Organization [facility] Address [address] [place] [address]- Care Team Providers Care Real Estate Salesperson Name Role Phone Reynold Pratt MD Primary Care Physician Encounter [facility] [place] Date(s): 03/19/20 - 04/18/[address] [address]- [facility] Attending Physician: Admdede, Bert Admitting Physician: AdmtrBert Referring Physician: Admtr, Ar8 Allergies, Adverse Reactions, Alerts Substance Reaction Severity [...] 1 Refills, Soft Stop, 12/19/19 10:55:00 EDT, [facility], 164, cm, 11/28/19 15:20:00 EDT, Height, 66, kg, 11/28/19 15:20:00 EDT, Dry Weight Start Date: 12/19/19 Status: Ordered gabapentin 600 mg oral tablet 1 tablet, By Mouth, 2 times a day, # 60 tablet, 3 Refills, Soft Stop, 12/19/19 20:30:00 EDT, [facility]/pharmacy #[id number], 164, cm, 11/28/19 15:20:00 EDT, Height, 66, kg, 11/28/19 15:20:00 EDT, Dry Weight Start Date: 12/19/19 Status: Ordered LORazepam 1 mg oral tablet 1 tablet = 1 mg, By Mouth, Daily at bedtime, PRN as needed for anxiety, # 30 tablet, 0 Refills, Soft Stop, 02/29/20 7:52:00 EDT, [facility] # 302, 164, cm, 02/08/20 13:38:00 [...] 2 each, 0 Refills, Maintenance, 02/17/20 11:16:00EDT, [facility] # 302, 164, cm, 02/08/20 13:38:00 EDT, Height, 66, kg, 11/28/19 15:20:00 EDT, Dry Weight Start Date: 02/17/20 Status: Ordered Repatha 140 mg/mL subcutaneous solution = 140 mg, Subcutaneous Infusion, Every 14 days, # 2 each, 6 Refills, Maintenance, 02/09/20 10:36:00EDT, [facility]/pharmacy #[id number], 164, cm, 02/08/20 13:38:00 EDT, Height, 66, kg, 11/28/19 15:20:00 EDT, DryWeight Start Date: 02/09/20 Status: Ordered Repatha SureClick 140 mg/mL subcutaneous solution = 140 mg, Subcutaneous Infusion, Every 14 days, # 2 each, 0 Refills, Maintenance, 02/08/20 15:51:00EDT, [facility]/pharmacy #[id number], 164, cm, 02/08/20 13:38:00 EDT, Height, 66, kg, 11/28/19 15:20:00 EDT, DryWeight Start Date: 02/08/20 Status: Ordered tamsulosin 0.4 mg oral capsule 0.4 mg, 1, capsule, By Mouth, Daily at bedtime, # 90 capsule, Refills 1, Tot. Refills 1, Soft Stop,12/30/19 10:36:00 EDT, Route to Pharmacy Electronically, [facility]/pharmacy #[id number], 164, cm, 11/28/19 15:20:00 EDT, Height, [...]
--- OUTSIDE RECORDS SUMMARY | 2023-12-09 09:56 | XMS_ITS | Continuity of Care Document ---
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 [place] Date(s): 02/01/20 - 03/08/20 [facility] [address] [address]- [facility] Attending Physician: Reynold Pratt MD Admitting Physician: Reynold Pratt MD Referring Physician: Reynold Pratt MD Allergies, [...] Refills, Soft Stop, 12/19/19 10:55:00 EDT, [facility], 164, cm, 11/28/19 15:20:00 EDT, Height, 66, kg, 11/28/19 15:20:00 EDT, Dry Weight Start Date: 12/19/19 Status: Ordered gabapentin 600 mg oral tablet 1 tablet, By Mouth, 2 times a day, # 60 tablet, 3 Refills, Soft Stop, 12/19/19 20:30:00 EDT, [facility]/pharmacy #[id number], 164, cm, 11/28/19 15:20:00 EDT, Height, 66, kg, 11/28/19 15:20:00 EDT, Dry Weight Start Date: 12/19/19 Status: Ordered LORazepam 1 mg oral tablet 1 tablet = 1 mg, By Mouth, Daily at bedtime, PRN as needed for anxiety, # 30 tablet, 0 Refills, Soft Stop, 02/29/20 7:52:00 EDT, [facility] # 302, 164, cm, 02/08/20 13:38:00 [...] 2 each, 0 Refills, Maintenance, 02/17/20 11:16:00EDT, [facility] # [facility], 164, cm, 02/08/20 13:38:00 EDT, Height, 66, kg, 11/28/19 15:20:00 EDT, Dry Weight Start Date: 02/17/20 Status: Ordered Repatha 140 mg/mL subcutaneous solution = 140 mg, Subcutaneous Infusion, Every 14 days, # 2 each, 6 Refills, Maintenance, 02/09/20 10:36:00EDT, [facility]/pharmacy #[id number], 164, cm, 02/08/20 13:38:00 EDT, Height, 66, kg, 11/28/19 15:20:00 EDT, DryWeight Start Date: 02/09/20 Status: Ordered Repatha SureClick 140 mg/mL subcutaneous solution = 140 mg, Subcutaneous Infusion, Every 14 days, # 2 each, 0 Refills, Maintenance, 02/08/20 15:51:00EDT, [facility]/pharmacy #[id number], 164, cm, 02/08/20 13:38:00 EDT, Height, 66, kg, 11/28/19 15:20:00 EDT, DryWeight Start Date: 02/08/20 Status: Ordered tamsulosin 0.4 mg oral capsule 0.4 mg, 1, capsule, By Mouth, Daily at bedtime, # 90 capsule, Refills 1, Tot. Refills 1, Soft Stop,12/30/19 10:36:00 EDT, Route to Pharmacy Electronically, [facility]/pharmacy #[id number], 164, cm, 11/28/19 15:20:00 EDT, Height, [...]
--- OUTSIDE RECORDS SUMMARY | 2023-12-09 09:57 | XMS_ITS | Continuity of Care Document ---
Author Name Unknown Organization [facility] Address [address] [place] [id number]- Care Team Providers Care Student Life Coordinator Name Role Phone Santa KAUFFMAN, Reynold Segura Primary Care Physician [phone] Encounter [facility] Date(s): 11/25/19 - 12/05/19 [facility] [address] [address]- [facility] Attending Physician: Admdede, Bry8 Admitting Physician: Admtr, Ar8 Referring Physician: Admtr, Ar8 Allergies, Adverse Reactions, [...] # 90 tablet, 1 Refills, Soft Stop, 12/05/19 9:40:00 EDT, [facility], 164, cm, 11/28/19 15:20:00 EDT, Height, 66, kg, 11/28/19 15:20:00 EDT, Dry Weight Start Date: 12/05/19 Status: Ordered gabapentin 600 mg oral tablet 1 tablet, By Mouth, 2 times a day, # 60 tablet, Refills 3 Tot. Refills 3, [id number] Start Date: 08/08/19 Status: Ordered LORazepam 1 mg oral tablet 1 tablet = 1 mg, By Mouth, Daily at bedtime, PRN as needed for anxiety, # 30 tablet, 0 Refills, Soft Stop, 11/04/19 14:39:00 EST, [facility], 163, cm, 10/11/19 14:44:00 EST, Height, 66, kg, 09/26/19 22:40:00 EST, Dry Weight Start Date: 11/04/19 Status: Ordered melatonin 10 mg oral tablet, [...] Refills, Maintenance, 10/14/19 12:32:00 EST, REC Powder, [facility], test date 11/22/19, 240 [...] Replace Required Details, Route to Pharmacy Electronically, [id number], CV... Start Date: 06/28/19 Status: Ordered Problem [...]
--- OUTSIDE RECORDS SUMMARY | 2023-12-09 09:57 | XMS_ITS | Continuity of Care Document ---
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 Name Role Phone Reynold Pratt MD Primary Care Physician [phone] Encounter [facility] Date(s): 09/09/19 - 09/19/[address] [address]- [facility] Attending Physician: Bert Song Admitting Physician: Bert Song Referring Physician: Bert Song Allergies, Adverse Reactions, Alerts Substance Reaction Severity Status penicillin Persistent Moderate Active Immunizations Given and Recorded Vaccine Date Status Refusal Reason influenza virus vaccine, inactivated 05/23/19 Melo rded Medications Bilberry 0 Refills, Maintenance, 02/07/19 10:10:26 EDT [...] 1 Refills, Soft Stop, 09/09/19 14:38:00 EST, [facility], 164, cm, 07/28/19 14:04:00 EST, Height Start Date: 09/09/19 Status: Ordered ezetimibe 10 mg oral tablet See Instructions, # 90 tablet, Refills 1 Tot. Refills 1, TAKE 1 TABLET BY MOUTH EVERY DAY, [id number] Start Date: 05/03/19 Status: Ordered gabapentin 600 mg oral tablet 1 tablet, By Mouth, 2 times a day, # 60 tablet, Refills 3 Tot. Refills 3, [id number] Start Date: 08/08/19 Status: Ordered ipratropium [...] 0 Refills, Soft Stop, 09/09/19 14:37:00 EST, [facility], 164, cm, 07/28/19 14:04:00 EST, [...] tablet, 3 Refills, Maintenance, 08/20/19 2:00:34EST, Tablet, [id number], 164, cm, 07/28/19 14:04:53 EST, Height Start Date: 08/20/19 Status: Ordered PreserVision AREDS 2 1 capsule, By Mouth, Daily, 0 Refills, Maintenance, 02/07/19 10:10:19 EDT Start Date: 02/07/19 Status: Ordered tamsulosin 0.4 mg oral capsule See Instructions, TAKE 1 CAPSULE BY MOUTH EVERYDAY AT BEDTIME, # 30 capsule, Refills 1, Tot. Refills 1, Soft Stop, 06/28/19 19:28:03 EDT, Instructions Replace Required Details, Route to Pharmacy Electronically, [id number], CV... Start Date: 06/28/19 Status: Ordered Problem [...]
== END 2023-12-09 11:11 | disposition home or self-care (01) ==
LOC: HO.HOS 09:55
PROVIDERS: PCP Family Medicine; Visit Provider Orthopaedic Surgery
DX: M65.342 Trigger finger, left ring finger (principal); I25.10 Atherosclerotic heart disease of native coronary artery without angina pectoris; J44.9 Chronic obstructive pulmonary disease, unspecified
CPT/HCPCS: 20550; 99203

== ENCOUNTER → 2023-12-09 09:55 | Outpatient (BNVA) | payer MEDICARE, SELFPAY | PROVIDERS: PCP Family Medicine; Visit Provider Orthopaedic Surgery | DX: M65.342 Trigger finger, left ring finger (principal); I25.10 Atherosclerotic heart disease of native coronary artery without angina pectoris; J44.9 Chronic obstructive pulmonary disease, unspecified | CPT/HCPCS: 20550; 99202; J1100 ==

== ENCOUNTER 2023-12-24 09:48 | Outpatient (AMB) | payer MEDICARE, SELFPAY ==
--- NOTE | 2023-12-24 10:09 | MHC.OFFVIS ---
Vital Signs 12/24/23 10:19 Height 5 ft 4 in Weight 155 lb BMI 26.6 Handedness Left Intake Visit Reasons: new prob-Rt shoulder pain Intake Note: Armando is a 73 year old left hand dominate male who presents today for a evaluation of his right shoulder pain. Patient reports he is having on going pain for many years. He states having a shoulder replacement in 2014. Patient reveals that his pain is on his shoulder and it radiates up to his neck. Pain is worse when lifting above head and sleeping on his right side. Patient finds mild relief when taking Advil. He expresses a concern about his rotator cuff being ruptured. Allergies amoxicillin Allergy (Mild, Verified 12/24/23 10:09) Rash Penicillins Allergy (Mild, Verified 12/24/23 10:09) Rash HPI HPI new prob-Rt shoulder pain: Details: 73-year-old left hand dominant male who presents in the office today for an evaluation of right shoulder pain. Patient reports he is having on going pain for many years. He states the pain is in his shoulder and radiates up to his neck. Increase in pain with lifting above his head and sleeping on his right side. He finds mild relief with Advil. He is concerned he has a rotator cuff rupture. Patient confirms shoulder replacement in 2014 in [place]. [facility] Medical History No pertinent past medical history Surgical History No pertinent past surgical history Family History Other Substance abuse Social History Housing: House Patient Tobacco Use Status: Former Tobacco user e-Cigarette/Vaping Use: Never Used service: No Current occupational status: retired Current occupation: Left hand dominant Cognitive needs: No Hearing needs: No Vision needs: No Review of Systems Const All systems reviewed & are unremarkable except as noted in HPI and below Physical Exam Vital Signs: BMI result Body Mass Index 26.6 Const General: cooperative, healthy appearing and no acute distress Resp Effort & Inspection: normal respiratory effort and able to speak in complete sentences Cardio Rate: regular rate Peripheral pulses: Peripheral pulses 2+ throughout GI Palpation (GI): Soft to palpation Skin Lesions: no lesions Rashes: no rashes Extrem Other: Right shoulder: Prior incision site noted from partial right total shoulder replacement. Lacking about 20 degrees of forward flexion. Full abduction. Able to reach T-12. Negative cross-body reach. 3/5 strength with empty can. Negative drop arm. NVI. Assessment & Plan Assessment & Plan (1) History of hemiarthroplasty of right shoulder: Code(s): Z96.611 - Presence of right artificial shoulder joint Category: Surgical (2) Rotator cuff tear arthropathy of right shoulder: Code(s): M75.101 - Unspecified rotator cuff tear or rupture of right shoulder, not specified as traumatic; M12.811 - Other specific arthropathies, not elsewhere classified, right shoulder Category: Medical Plan Mr. Butcher is a 73-year-old left hand dominant male who presents in the office today for an evaluation of right shoulder pain. Patient reports he is having on going pain for many years. He states the pain is in his shoulder and radiates up to his neck. Increase in pain with lifting above his head and sleeping on his right side. He finds mild relief with Advil. He is concerned he has a rotator cuff rupture. Patient confirms shoulder replacement in 2013 in [place]. Patient will follow up with Dr. Olivas to discuss the possibility of a reverse total shoulder. Follow-up will be with Dr. Olivas, or sooner if needed. X-rays of the right shoulder which were obtained while in the office today and were reviewed by me, Fely Chacon PA-C, revealed intact orthopedic hardware with no signs of loosening. Orders: Orders XR shoulder RT min 2V Today M25.519 - Pain in unspecified shoulder Patient Instructions: Scribed by She Payan, medical lab director, for Fely Chacon PA-C on 12/24/2023 at 10:02 am, EST.
[2023-12-24 10:19] VITALS: BMI 26.6
== END 2023-12-24 10:44 | disposition home or self-care (01) ==
PROVIDERS: PCP Family Medicine; Visit Provider Physician Assistant
DX: M12.811 Other specific arthropathies, not elsewhere classified, right shoulder (principal); Z96.611 Presence of right artificial shoulder joint; M75.101 Unspecified rotator cuff tear or rupture of right shoulder, not specified as traumatic
CPT/HCPCS: 99213

== ENCOUNTER 2023-12-24 10:34 | Outpatient (REF) | payer MEDICARE, SELFPAY ==
--- NOTE | ~2023-12-24 | XR_ITS ---
EXAMINATION: XR SHOULDER, RIGHT CLINICAL INFORMATION: Pain. COMPARISON: None available. TECHNIQUE: AP neutral, Grashey and axillary views of the right shoulder are submitted. FINDINGS: Bony alignment and mineralization are normal. There is an intact right shoulder arthroplasty, without hardware failure, loosening or periprosthetic fracture. The arthroplasty is well seated within the glenoid. The acromioclavicular and coracoclavicular intervals are normal. No soft tissue calcifications or foreign body seen. There is no right pneumothorax. XR/XR shoulder RT min 2V IMPRESSION: An intact right shoulder arthroplasty is seen, without hardware failure, loosening or periprosthetic fracture.
== END 2023-12-24 10:35 | disposition home or self-care (01) ==
LOC: HO.HOSX 10:34
PROVIDERS: Visit Provider Physician Assistant
DX: M25.511 Pain in right shoulder (principal); M75.101 Unspecified rotator cuff tear or rupture of right shoulder, not specified as traumatic; M12.811 Other specific arthropathies, not elsewhere classified, right shoulder; Z96.611 Presence of right artificial shoulder joint
CPT/HCPCS: 73030; 99212

== ENCOUNTER 2024-01-11 13:02 | Outpatient (AMB) | payer MEDICARE, SELFPAY ==
[2024-01-11 13:04] VITALS: BMI 26.6
--- NOTE | 2024-01-11 13:04 | MHC.OFFVIS ---
Vital Signs 01/11/24 13:04 Height 5 ft 4 in Weight 155 lb BMI 26.6 Intake Visit Reasons: OV - Right Shoulder - Discuss Revision Intake Note: Armando is a 73 year old left hand dominant male who presents today to discuss revision of right TSA, previous surgery done in 2013 in [place]. Patient reports that his pain has been ongoing for quite some time now. He states the pain is in his shoulder and radiates up to his neck. Increase in pain with lifting above his head and sleeping on his right side. He finds mild relief with Advil. He is concerned he has a rotator cuff rupture. Allergies amoxicillin Allergy (Mild, Verified 01/11/24 13:10) Rash Penicillins Allergy (Mild, Verified 01/11/24 13:10) Rash HPI HPI OV - Right Shoulder - Discuss Revision: Details: Evgeny is a 73-year-old left-hand dominant gentleman with a long history of right shoulder arthroplasty. He had surgery approximately 10 years ago in [place]. He now describes pain, mostly at night, that is sharp and anterior. States that he is very active and he continues to use his right arm regularly. He is able to do most things but feels mostly frustrated that he has pain at night. [facility] Medical History No pertinent past medical history Surgical History No pertinent past surgical history Family History Other Substance abuse Social History Housing: House Patient Tobacco Use Status: Former Tobacco user e-Cigarette/Vaping Use: Never Used service: No Current occupational status: retired Current occupation: Left hand dominant Cognitive needs: No Hearing needs: No Vision needs: No Physical Exam Vital Signs: BMI result Body Mass Index 26.6 Const General: cooperative, healthy appearing, no acute distress and well groomed Orientation/consciousness: oriented to person and oriented to place HEENT Head: Yes normal to inspection, Yes normocephalic and Yes atraumatic Eyes General: appearance normal, both eyes and all related structures Alignment and Position: alignment normal Conjunctivae: conjunctivae normal EOM: EOMs intact bilaterally Neck Neck: Yes normal visual inspection and Yes trachea midline Resp Other: No rerpiratory distress Effort & Inspection: normal respiratory effort and able to speak in complete sentences GI Other: No abdominal distension Back/Spine/Pelvis Cervical Spine: normal cervical lordosis and cervical ROM normal Skin General skin exam: no rashes or lesions noted Neuro General: oriented to person, oriented to place and gait normal Extrem Other: Full range of motion with smooth arc of abduction. A negative empty can although question of superior migration of the humerus with abduction. Negative lift-off tenderness to palpation over the bicipital groove. Incision well healed. Results Reviewed Results Reviewed: I personally reviewed relevant radiographs. Right total shoulder arthroplasty in expected post operative position with no hardware complications or evidence of loosening. Possible question of proximal migration. Assessment & Plan Assessment & Plan (1) Status post replacement of right shoulder joint: Code(s): Z96.611 - Presence of right artificial shoulder joint Category: Surgical Plan: Status post right shoulder replacement. Overall he is doing well. His motion is good and strength is good. I suppose there is some mild rotator cuff weakness and this may worsen over time but I would not recommend intervention at this time. I discussed this with him and he agrees. Should his pain worsen he return to see me. Coding Level of Care Code Est Pt Level 4 (66985) Diagnoses Status post replacement of right shoulder joint Z96.611
== END 2024-01-11 16:00 ==
PROVIDERS: PCP Family Medicine; Visit Provider Orthopaedic Surgery
DX: M25.511 Pain in right shoulder (principal); Z96.611 Presence of right artificial shoulder joint
CPT/HCPCS: 99213

== ENCOUNTER → 2024-01-11 13:02 | Outpatient (BNVA) | payer MEDICARE, SELFPAY | PROVIDERS: PCP Family Medicine; Visit Provider Orthopaedic Surgery | DX: M25.511 Pain in right shoulder (principal); Z96.611 Presence of right artificial shoulder joint | CPT/HCPCS: 99212 ==

== ENCOUNTER 2024-02-02 10:39 | Outpatient (AMB) | payer MEDICARE, SELFPAY ==
--- NOTE | 2024-02-02 10:42 | MHC.OFFVIS ---
Intake Visit Reasons: OV - left trigger finger Intake Note: Armando 73 yr old male presents today for his follow up visit for his left hand ring finger s/p trigger injection from 12/09/23. States injection did not help and would like to discuss surgical intervention. He states that it causes him pain when doing his daily activities and yard work. Allergies amoxicillin Allergy (Mild, Verified 02/02/24 10:53) Rash Penicillins Allergy (Mild, Verified 02/02/24 10:53) Rash HPI HPI OV - left trigger finger: Details: Armando is a 73 year old right hand dominant man who returns to discuss his left ring finger trigger finger, S/P injection on 12/09/23. He continues to have painful locking & catching of his ring finger. He would like to discuss surgery He has CAD & COPD. [facility] Medical History No pertinent past medical history Surgical History No pertinent past surgical history Family History Other Substance abuse Social History Housing: House Patient Tobacco Use Status: Former Tobacco user e-Cigarette/Vaping Use: Never Used service: No Current occupational status: retired Current occupation: Left hand dominant Cognitive needs: No Hearing needs: No Vision needs: No Physical Exam Extrem Other: Evaluation of Left Upper Extremity: The patient is alert, oriented, and in no acute distress Neuro: Median, Ulnar, Radial nerves motor and sensory intact and sensation is normal to the tips of all digits Vascular: Cap refill brisk ROM: He can make a fist and extend all his digits Some stiffness of the ring finger, likely from disuse Visible catching of the left ring finger Tender over the a1 lizett of the ring finger Assessment & Plan Assessment & Plan (1) Trigger finger, left ring finger: Code(s): M65.342 - Trigger finger, left ring finger Category: Medical (2) Coronary artery disease: Code(s): I25.10 - Atherosclerotic heart disease of [place] coronary artery without angina pectoris Category: Medical (3) COPD (chronic obstructive pulmonary disease): Code(s): J44.9 - Chronic obstructive pulmonary disease, unspecified Category: Medical Plan Assessment & Plan: 1. Left ring finger trigger finger, S/P injection Date of Injection: 12/09/23 I educated him about this condition I discussed operative and non-operative treatment options The patient would like to proceed with surgery The risks and benefits of operative treatment were discussed with the patient and the patient wishes to proceed with surgery. These risks include, but are not limited to risk of damage to blood vessels, nerves, tendons, infection, recurrence, incomplete relief of preoperative symptoms, persistent pain, possible need for further surgery and the risks associated with regional blocks and anesthesia. The plan is to take the patient to the operating room sometime in the next few weeks for the following procedures: 1. Left ring finger trigger release, under local All of the preoperative paperwork including the consent was reviewed today. All the patient's questions were answered. The patient understands that they will be contacted by our gastroenterology technician soon to schedule this procedure. He would like to be placed on the cancellation list for a sooner surgery date if possible. He denies Diabetes, blood thinners, asthma, kidney issues He has a Hx of CAD & COPD. Scribed for Monique Hargrove MD by Andrea Perez, medical editor, on 02/02/24 at 11:00 AM, EST. Coding Level of Care Code Est Pt Level 4 (59110) Diagnoses Trigger finger, left ring finger M65.342 Coronary artery disease I25.10 COPD (chronic obstructive pulmonary disease) J44.9
== END 2024-02-02 11:19 | disposition home or self-care (01) ==
PROVIDERS: PCP Family Medicine; Visit Provider Orthopaedic Surgery
DX: M65.342 Trigger finger, left ring finger (principal); I25.10 Atherosclerotic heart disease of native coronary artery without angina pectoris; J44.9 Chronic obstructive pulmonary disease, unspecified
CPT/HCPCS: 99214

== ENCOUNTER → 2024-02-02 10:39 | Outpatient (BNVA) | payer MEDICARE, SELFPAY | PROVIDERS: PCP Family Medicine; Visit Provider Orthopaedic Surgery | DX: M65.342 Trigger finger, left ring finger (principal); I25.10 Atherosclerotic heart disease of native coronary artery without angina pectoris; I10 Essential (primary) hypertension; J44.9 Chronic obstructive pulmonary disease, unspecified | CPT/HCPCS: 99212 ==

== ENCOUNTER 2024-03-16 11:41 | Outpatient (AMB) | payer MEDICARE, SELFPAY ==
[2024-03-16 11:57] VITALS: BP 120/80; PULSE 75; RESP 15; TEMP 36.6; O2SAT 97; BMI 26.0
--- NOTE | 2024-03-16 11:57 | A.OFFPC_ITS ---
Vital Signs 03/16/24 11:57 Height 5 ft 4 in Weight 151 lb 6 oz BMI 26.0 BP 120/80 Blood Pressure Location Rt brachial Position Sitting Respiration 15 Pulse 75 Pulse Source Pulse Oximeter Temp 97.8 F Temp Source Temporal Artery Scan Pulse Oximetry (%) 97 Oxygen Delivery Method Room Air Intake Visit Reasons: CPE with f/u labs and health maint. 3 Intake Note: Patient states that hes is unable to sleep due to his shoulders feeling like they're stabbing him when he is sleeping. Commercial Photographer Required: No Accompanied by: Spouse Allergies amoxicillin Allergy (Mild, Verified 03/16/24 12:10) Rash Penicillins Allergy (Mild, Verified 03/16/24 12:10) Rash Medication List - Last Reconciled 03/16/24 by Lucho Hairston MD aspirin (Adult Aspirin Regimen) 81 mg PO DAILY diclofenac sodium 1% (Voltaren Arthritis Pain) 2 grams topical QID 30 days ezetimibe 10 mg PO DAILY gabapentin 600 mg PO BID hydroxyzine HCl 50 mg PO BEDTIME 30 days lorazepam 1 mg PO BEDTIME PRN 30 days melatonin mg PO .prn metoprolol succinate ER 12.5 mg (1/2 x 25 mg) PO DAILY 90 days omeprazole 20 mg PO DAILY tamsulosin 0.4 mg PO BEDTIME 30 days Tobacco use date assessed: 03/16/24 Fall risk assessment: No Falls in past year Last assessed Fall Risk: 03/16/24 Dental Screening Dental Screen Date: 03/16/24 Did you have a dental visit in the last 12 months?: Yes Did you have a dental problem in the last 6 months where you did not have access to dental care?: No Was dental information given to patient?: Patient has dentist HPI CPE with f/u labs and health maint. 3 HPI Details 73 y/o male presents for a CPE with f/u labs and health maintenance. Has been unable to tolerate statins or Repatha. Just on Zetia. No recent CPE-labs to review. [facility] Medical History No pertinent past medical history Surgical History No pertinent past surgical history Family History Other Substance abuse Social History Housing: House Patient Tobacco Use Status: Former Tobacco user e-Cigarette/Vaping Use: Never Used service: No Current occupational status: retired Current occupation: Left hand dominant Cognitive needs: No Hearing needs: No Vision needs: No Questionnaire PHQ-9 Over the last 2 weeks, how often have you been bothered by any of the following problems? 1. Little interest or pleasure in doing things: not at all 2. Feeling down, depressed, or hopeless: not at all 3. Trouble falling or staying asleep, or sleeping too much: not at all 4. Feeling tired or having little energy: not at all 5. Poor appetite or overeating: not at all 6. Feeling bad about yourself - or that you are a failure or have let yourself or your family down: not at all 7. Trouble concentrating on things, such as reading the newspaper or watching television: not at all 8. Moving or speaking so slowly that other people could have noticed. Or the opposite - being so fidgety or restless that you have been moving around a lot more than usual: not at all 9. Thoughts that you would be better off or of hurting yourself in some way: not at all Total score: 0 Depression Screening Interpretation: Negative Depression Screening Done: Yes 96918 - PHQ-9 Billing: Yes Source: Developed by Drs. Emanuel Gates, Kristina Hermosillo, Jett Blankenship and colleagues, with an educational angel from [employer]. Thrive Questionnaire Date Thrive assessed: 03/16/24 I am a: Patient What is your living situation today?: I have a steady place to live Within the past 12 months, did the food you bought not last and you didn't have the money to get more?: Never true Within the past 12 months, did you worry whether your food would run out before you got money to buy more?: Never true Do you have trouble paying for medicines?: No Do you have trouble getting transportation to medical appointments?: No Do you have trouble paying your heating and electricity bill?: No Do you have trouble taking care of your child, family member or friend?: No Do you have trouble with day-to-day activities such as bathing, preparing meals, shopping, managing finances, etc.?: No Are you currently unemployed and looking for a job?: No Are you interested in more education?: No Please select the resources that you would like help with: None Currently or been in a relationship where the following occur: No concerns reported THRIVE Score: 0 AUDIT C Alcohol Use Questionnaire (AUDIT-C) 1. How often do you have a drink containing alcohol?: Monthly or less 2. How many drinks containing alcohol do you have on a typical day when you are drinking?: 1 or 2 3. How often do you have six or more drinks on one occasion?: Never Total Score: 1 JORDON-7 AMB Questionnaire JORDON-7 Date JORDON - 7 assessed: 03/16/24 Feeling nervous, anxious, or on edge: 0 = Not at all Not being able to stop or control worryin = Not at all Worrying too much about different things: 0 = Not at all Trouble relaxin = Not at all Being so restless that it is hard to sit still: 0 = Not at all Becoming easily annoyed or irritable: 0 = Not at all Feeling afraid as if something awful might happen: 0 = Not at all Total JORDON-7 score (0-4 normal; 5-9 mild; 10-14 moderate; 15-21 severe): 0 Source: Developed by Drs. Emanuel Gates, Kristina Hermosillo, Jett Blankenship and colleagues, with an educational angel from [employer]. JORDON-7 Assessment Billing JORDON-7 Assessment Tool: JORDON-7 Assessment 65751 Review of Systems Const Denies chills, Denies fatigue, Denies fever(s), Denies headache(s) and Denies weakness Eyes Denies change in vision ENT Denies dizziness, Denies headache(s), Denies hearing loss, Denies nasal congestion, Denies sinus pain, Denies sinus pressure and Denies sore throat Card Denies chest pain, Denies lightheadedness, Denies dyspnea and Denies other (palpitations) Resp Denies cough, Denies dyspnea and Denies wheezing GI Denies abdominal pain, Denies melena, Denies hematochezia, Denies change in bowel habits, Denies dyspepsia and Denies nausea Denies hematuria and Denies dysuria Musc Denies abnormal gait, Denies myalgias, Denies arthralgias, Denies numbness and Denies tingling Skin/Breast Denies rash, Denies unusual bruising and Denies wounds Neuro Denies abnormal gait, Denies dizziness, Denies headache(s), Denies memory loss, Denies numbness, Denies Sensory deficit (Neuro), Denies tingling and Denies weakness Psych Denies anxiety, Denies depression and Denies memory loss Endo Denies cold intolerance, Denies fatigue, Denies heat intolerance, Denies polydipsia and Denies polyuria Cirilo/Lymph Denies easy bleeding and Denies easy bruising Aller/Immun Denies wheezing Physical exam (Primary Care) Vital Signs: Last Vital Signs Temp 97.8 F 03/16/24 11:57 Pulse 75 03/16/24 11:57 Resp 15 03/16/24 11:57 BP 120/80 03/16/24 11:57 Pulse Ox 97 03/16/24 11:57 Oxygen Delivery Method Room Air 03/16/24 11:57 BMI result Body Mass Index 26.0 Tobacco/Smoking Status: Tobacco use Status Tobacco use date assessed 03/16/24 03/16/24 12:14 Patient Tobacco Use Status Former Tobacco user 03/16/24 12:11 e-Cigarette/Vaping Use Never Used 03/16/24 12:11 PHQ-9: PHQ-9 Score PHQ-9: Total score 0 03/16/24 12:34 Depression Screening Interpretation: Negative Thrive Assessment: Date of Thrive Assessment Date Thrive assessed 03/16/24 03/16/24 12:14 Currently or been in a relationship where the following occur: No concerns reported Const General: no acute distress, well developed, alert and awake Nutritional Appearance: well nourished Orientation/consciousness: patient oriented x3 HENMT Head: Yes normocephalic and Yes atraumatic Ears: hearing grossly normal bilaterally and TM's normal bilaterally General nose exam: Normal external nose present and Normal nares present Mouth: Normal oral and palatal mucosa present and moist mucous membranes Teeth and gingiva: dentition normal Throat: Yes posterior oropharynx normal Eyes General: appearance normal, both eyes and all related structures Pupils: Equal, round and reactive pupils present and Pupil accommodation reflex normal EOM: EOMs intact bilaterally Neck Neck: Yes normal visual inspection, Yes no lymphadenopathy and Yes trachea midline Thyroid: Thyroid normal Carotids: no bruits Lymphatic: no lymphadenopathy noted Chest Chest palpation & inspection: normal inspection of the chest Resp Effort & Inspection: normal respiratory effort Auscultation: clear to auscultation bilaterally Cardio Rate: regular rate Rhythm: regular rhythm Heart sounds: S1 normal heart sound present, S2 normal heart sound present, no gallops, no murmurs and no rubs Bruits: no abdominal aortic bruits and no carotid bruits GI Palpation (GI): No Abdominal aortic bruit present, Soft to palpation, nontender, No hepatosplenomegaly present and No Rebound tenderness present Auscultation: normal bowel sounds General: Yes no CVA tenderness Back/Spine/Pelvis Back: no CVA tenderness Cervical Spine: cervical ROM normal and No Cervical spine tenderness Thoracic/Lumbar Spine: thoraco-lumbar ROM normal, No pain with thoraco-lumbar ROM, No thoracic spinal tenderness and No lumbar spinal tenderness Skin Lesions: no lesions Rashes: no rashes Trauma: no lacerations or abrasions Wounds: no wounds Nails: normal Neuro General: patient oriented x3 Cranial nerves: Yes Equal, round and reactive pupils present Cognition (Neuro): normal cognition Gait exam (Neuro): Normal gait present Motor exam (neuro): 5/5 motor strength present throughout Sensory Exam: No Sensory deficit (Neuro) Deep tendon reflexes (DTR's): Right patellar reflex intensity grade: 2+ and Left patellar reflex intensity grade: 2+ Extrem General: Yes normal to inspection and No edema Psych Appearance: grossly normal Affect: normal affect Attitude: cooperative Thought process: Normal thought process present Assessment and Plan Assessment & Plan (1) Adult general medical exam: Code(s): Z00.00 - Encounter for general adult medical examination without abnormal findings Plan: 73-year-old?male?presents?for?complete?physical (2) Hypertension: Code(s): I10 - Essential (primary) hypertension Plan: Blood?pressure?is?controlled.??Goal?is?less?than?130/80 Continue?current?medication?regimen (3) Difficulty sleeping: Code(s): G47.9 - Sleep disorder, unspecified Plan: Has?used?lorazepam?but?this?is?not?lasting?long Will?switch?to?clonazepam (4) Coronary artery disease: Code(s): I25.10 - Atherosclerotic heart disease of [place] coronary artery without angina pectoris Plan: Patient?takes?Zetia?but?has?not?tolerated?other?medications?including?statins?fo r?lowering?cholesterol. Advised?patient?to?follow-up?with? Will?request?most?recent?note (5) Bilateral shoulder pain: Code(s): M25.511 - Pain in right shoulder; M25.512 - Pain in left shoulder Plan: Ongoing?bilateral?shoulder?pain History?of?shoulder?replacement?but?recently?consulted?for?additional?interventi ons?with?ortho.??No?surgical?interventions?were?recommended. Will?use?a?small?amount?of?tramadol?for?significant?pain Also?advise?that?physical?therapy?may?be?helpful?if?he?needs?additional?pain?con trol. Pain?contract?signed?today. (6) Hyperlipidemia: Code(s): E78.5 - Hyperlipidemia, unspecified Plan: As?above,?lipids?are?too?high?and?he?has?not?tolerated?statin?medications. Advised?patient?to?follow- up?with?his?bottom liner.??I?have?requested?most?recent?cardiology?note?as?well. (7) Screening for colon cancer: Code(s): Z12.11 - Encounter for screening for malignant neoplasm of colon Plan: Patient?says?he?had?a?colonoscopy?2?years?ago?at[facility].??Will?request?report. He?says?he?was?told?to?follow- up?in?10?years?which?would?likely?be?his?last?screening. (8) Screening for prostate cancer: Code(s): Z12.5 - Encounter for screening for malignant neoplasm of prostate Plan: Check?PSA Medications: New clonazepam administer 30 minutes before bedtime 1 mg PO BEDTIME 30 days 30 tabs 0RF tramadol #10 tabs per 30 days 50 mg PO DAILY 30 days PRN 10 tabs 0RF pain Discontinued lorazepam Discontinued Reason: Doctor's Order 1 mg PO BEDTIME 30 days PRN 30 tabs 0RF anxiety Coding Level of Care Code Est Pt Level 3 (10651) New Pt Prev Care >65yr (23566) Diagnoses Adult general medical exam Z00.00 Hypertension I10 Difficulty sleeping G47.9 Coronary artery disease I25.10 Bilateral shoulder pain M25.511; M25.512 Hyperlipidemia E78.5 Screening for colon cancer Z12.11 Screening for prostate cancer Z12.5 Additional Codes JORDON-7 Assessment Billing - JORDON-7 Assessment Tool: JORDON-7 Assessment 65609 ([id number])
== END 2024-03-16 13:48 | disposition home or self-care (01) ==
PROVIDERS: PCP Family Medicine; Visit Provider Family Medicine
DX: Z00.00 Encounter for general adult medical examination without abnormal findings (principal); M25.511 Pain in right shoulder; M25.512 Pain in left shoulder; G47.9 Sleep disorder, unspecified; I10 Essential (primary) hypertension; I25.10 Atherosclerotic heart disease of native coronary artery without angina pectoris; E78.5 Hyperlipidemia, unspecified; Z12.11 Encounter for screening for malignant neoplasm of colon; Z12.5 Encounter for screening for malignant neoplasm of prostate
CPT/HCPCS: 99213; 99397

== ENCOUNTER 2024-04-07 09:23 | Day surgery (SDC) | payer MEDICARE, SELFPAY ==
[2024-04-07 13:01] VITALS: BP 143/77; PULSE 64; RESP 16; TEMP 36.3; O2SAT 98; BMI 25.7
--- NOTE | 2024-04-07 13:33 | MHC.SHP ---
Pre-Procedural Eval Section A - 24 Hr Update-Section A only Date of Service: 04/07/24 The patient is an INPATIENT: No Changes since office visit: No Cold of Flu in the past 2 weeks, No New Medical Problems, No Changes in Medication and No Patient answered all questions The patient has been examined within 24 hours of the surgical procedure. The History & Physical has been completed within 30 days and I have reviewed it.: Yes Section B - Complete if H&P > 30 days Chief Complaint: Trigger finger, left ring finger Allergies: Allergies Allergy/AdvReac Type Severity Reaction Status Date / Time amoxicillin Allergy Mild Rash Verified 03/16/24 12:10 Penicillins Allergy Mild Rash Verified 03/16/24 12:10 Exam Exam Comment: Left ring finger trigger finger Plan Diagnosis/Plan: Unchanged I have reviewed the history and physical and performed a pertinent physical examination on my patient. No changes have occurred unless specified. Time Spent With Patient Time: Total time managing care of this patient today ____ minutes.
--- NOTE | 2024-04-07 13:34 | W.PM.OPN ---
Operative Note Operative Note Date of Service: 04/07/24 Narrative: Operative Note Preop diagnosis: 1. Left ring finger Trigger finger Postop diagnosis: 1. Left ring finger Trigger finger Procedure: 1. Left ring finger A1 lizett release Surgeon: Monique Hargrove MD Backend Python Developer: None Anesthesia: local block using 1% lidocaine with epinephrine Findings: No locking or catching after A1 lizett release EBL: Less than 5 mL Tourniquet time: None Specimens: None Complications: None Disposition: Brought to recovery room in stable condition Plan: Follow-up for 10-14 days for wound check and suture removal Indications: The patient is 73 years old, with a left ring finger trigger finger that has been unresponsive to nonoperative management. The risks and benefits of operative treatment including but not limited to risk of damage to blood vessels, nerves, tendons, infection, persistent pain, persistent symptoms, recurrence or possible need for additional surgery were discussed with the patient and the patient wishes to proceed with surgery. Procedure: Once consent was obtained a local block was performed in the preop area using a combination of 1% lidocaine with epinephrine. The patient was then brought back to the operating suite and placed on the operative table in supine position. The left upper extremity was prepped and draped in a standard surgical fashion. Once assured that we had a good block, a 1.5 cm oblique incision was made centered over the A1 lizett of the left ring finger . The incision was made through the skin to the subcutaneous tissues using a #15 blade. Careful dissection was made down to the level of the A1 lizett using tenotomy scissors, with care being taken to protect the nearby neurovascular structures. A longitudinal incision was made in the A1 lizett 1st using a #15 blade, then using tenotomy scissors under direct visualization. The A1 lizett was noted to be thickened. Following our A1 lizett release, we no longer saw any locking or catching of the digit with flexion and extension. Once satisfied with our A1 lizett release the wound was copiously irrigated with normal saline and hemostasis was obtained with a brief period of local pressure. The skin edges were reapproximated with some 5.0 nylon suture material and a sterile dressing was applied. The patient appears to have tolerated the procedure well and with no complications. All digits were well vascularized at the conclusion of the case.
[2024-04-07 15:34] VITALS: BP 135/79; PULSE 71; RESP 16; O2SAT 99
== END 2024-04-07 15:35 | disposition home or self-care (01) ==
PROVIDERS: PCP Family Medicine; Visit Provider Orthopaedic Surgery
PROC: (CPT 26055; principal; 2024-04-07 14:10)
DX: M65.342 Trigger finger, left ring finger (principal); I25.10 Atherosclerotic heart disease of native coronary artery without angina pectoris; J44.9 Chronic obstructive pulmonary disease, unspecified; Z79.82 Long term (current) use of aspirin; Z79.899 Other long term (current) drug therapy; Z88.0 Allergy status to penicillin; Z88.1 Allergy status to other antibiotic agents
CPT/HCPCS: 26055; J0171

== ENCOUNTER → 2024-04-07 09:23 | Outpatient (BNV) | payer MEDICARE, SELFPAY | PROVIDERS: PCP Family Medicine; Visit Provider Orthopaedic Surgery | DX: M65.342 Trigger finger, left ring finger (principal) | CPT/HCPCS: 26055 ==

== ENCOUNTER 2024-04-14 09:01 | Outpatient (REF) | payer MEDICARE, SELFPAY ==
[2024-04-14 10:58] LABS: MANUAL DIFF FLAG NO
[2024-04-14 11:18] LABS: Basophils Absolute Auto 0.1 X10*3/uL (0.0-0.2); Basophils Percent Auto 1.4 % (0-2); Eosinophils Absolute Auto 0.3 X10*3/uL (0.0-0.4); Eosinophils Percent Auto 4.5 % (0-4); Hematocrit 45.1 % (42.0-52.0); Imm Gran Abs Auto 0.04 X10*3/uL (0.00-0.03); Imm Gran Pct Auto 0.7 % (0.0-0.4); Lymphocytes Percent Auto 35.6 % (20-40); Mean Corpuscular HGB Conc 33.3 g/dl (31.0-36.0); Mean Corpuscular Hemoglobin 30.6 pg (27.0-33.0); Mean Platelet Volume 9.9 fL (9.4-12.4); Monocytes Absolute Auto 0.6 X10*3/uL (0.1-1.2); Monocytes Percent Auto 10.4 % (2-11); Neutrophils Absolute Auto 2.6 x10*3/uL (2.0-8.3); Neutrophils Percent Auto 47.4 % (45-73); Platelet Count 250 X10*3/uL (160-400); Red Cell Distribution Width 13.9 % (11.0-16.0); White Blood Count 5.6 X10*3/uL (4.8-10.8)
[2024-04-14 11:35] LABS: Alanine Aminotransferase 31 U/L (0-40); Albumin Level 4.1 g/dL (3.5-5.0); Alkaline Phosphatase 52 U/L (39-117); Anion Gap 9 (12-20); Aspartate Amino Transferase 25 U/L (5-37); Bilirubin Total 0.5 mg/dL (0.0-1.0); Blood Urea Nitrogen 12 mg/dL (9-16); Calcium 9.6 mg/dL (8.4-10.2); Carbon Dioxide 26 mmol/L (22-29); Chloride 108 mmol/L (96-108); Cholesterol 192 mg/dL (<200); Estimated Glomerular Filt Rate > 60; Glucose Fasting 96 mg/dL (60-99); HDL Cholesterol 37 mg/dL (>40); LDL Cholesterol Calculated 132 mg/dL (<100); Potassium 4.2 mmol/L (3.3-5.1); Sodium 139 mmol/L (135-145); Total Protein 7.2 g/dL (6.5-8.0); Triglycerides 119 mg/dL (<150)
[2024-04-14 11:41] LABS: Appearance Urine Clear; Color Urine Yellow; Glucose Urine UA Negative (Negative); Leukocyte Esterase Urine Negative (Negative); Nitrite Urine Negative (Negative); Urine Blood Negative (Negative); Urine Ketones Negative (Negative); Urine Protein Negative (Neg-Trace)
[2024-04-14 11:47] LABS: Prostate Specific Antigen Scr 2.71 ng/mL (<0.05-4.0)
[2024-04-14 12:02] LABS: Creatinine Urine 131.55 mg/dL; Microalbumin Urine < 5.0 mg/L
== END 2024-04-14 09:02 | disposition home or self-care (01) ==
LOC: HO.WFDLDS 09:01
PROVIDERS: Visit Provider Family Medicine
DX: Z00.00 Encounter for general adult medical examination without abnormal findings (principal); Z12.5 Encounter for screening for malignant neoplasm of prostate; I10 Essential (primary) hypertension
CPT/HCPCS: 36415; 80053; 80061; 81003; 82043; 82570; 84153; 84443; 85025

== ENCOUNTER 2024-04-18 15:19 | Outpatient (AMB) | payer MEDICARE, SELFPAY ==
--- NOTE | 2024-04-18 15:39 | A.OFFPC_ITS ---
Vital Signs 04/18/24 15:44 Height 5 ft 4 in Weight 150 lb BMI 25.7 BP 120/70 Blood Pressure Location Lt brachial Position Sitting Respiration 16 Pulse 87 Pulse Source Pulse Oximeter Temp 97.9 F Temp Source Tympanic Pulse Oximetry (%) 96 Oxygen Delivery Method Room Air Intake Visit Reasons: f/u hyperlipidemia, labs Intake Note: follow up for labs and hyperlipidemia Allergies amoxicillin Allergy (Mild, Verified 04/18/24 15:39) Rash Penicillins Allergy (Mild, Verified 04/18/24 15:39) Rash Medication List - Last Reconciled 04/18/24 by Lucho Hairston MD aspirin (Adult Aspirin Regimen) 81 mg PO DAILY diclofenac sodium 1% (Voltaren Arthritis Pain) 2 grams topical QID 30 days ezetimibe (Zetia) 10 mg PO DAILY 90 days gabapentin 600 mg PO BID melatonin mg PO .prn metoprolol succinate ER 12.5 mg (1/2 x 25 mg) PO DAILY 90 days omeprazole 20 mg PO DAILY tamsulosin 0.4 mg PO BEDTIME 30 days tramadol 50 mg PO DAILY PRN 30 days zolpidem 5 mg PO BEDTIME PRN 30 days Tobacco use date assessed: 03/16/24 Dental Screening Dental Screen Date: 03/16/24 HPI f/u hyperlipidemia, labs HPI Details 73 y/o male presents to f/u hyperlipidem ia, labs. Hx of CAD, hyperlipidemia and has not tolerated statins. He is on Zetia. Labs drawn 04/14/24. Reviewed labs with pt. Triglycerides 119. TC 192. LDL improved from 159 to 132. HDL low at 37. PSA 2.71. Blood pressure today 120/70. He is on metoprolol 12.5mg daily. Had switched his lorazepam to clonazepam due to difficulty with sleep/anxiety. He notes he has stopped taking clonazepam. He states he does have hx of sleep apnea. On tramadol for his shoulders. He is s/p R shoulder joint replacement. HPI Comments History of Present Illness Details Documentation assistance for Lucho Hairston MD, was provided by Yang Sharma,? Cheese Factory Worker on 04/18/2024 at 3:57 PM EST. I, Dr. Hairston, have read, observed, and verified documentation. [facility] Medical History No pertinent past medical history Surgical History No pertinent past surgical history Family History Other Substance abuse Social History Housing: House Patient Tobacco Use Status: Former Tobacco user e-Cigarette/Vaping Use: Never Used service: No Current occupational status: retired Current occupation: Left hand dominant Cognitive needs: No Hearing needs: No Vision needs: No Questionnaire Thrive Questionnaire Date Thrive assessed: 03/16/24 JORDON-7 AMB Questionnaire JORDON-7 Date JORDON - 7 assessed: 03/16/24 Source: Developed by Drs. Emanuel Gates, Kristina Hermosillo, Jett Blankenship and colleagues, with an educational angel from [employer]. Review of Systems Const Denies chills, Denies fatigue, Denies fever(s), Denies headache(s) and Denies weakness ENT Denies dizziness, Denies headache(s) and Reports neck pain Card Denies dyspnea Resp Denies cough, Denies dyspnea, Denies wheezing and Denies other (shortness of breath) Musc Details: R shoulder pain Reports neck pain, Denies numbness and Denies tingling Neuro Denies dizziness, Denies headache(s), Denies numbness, Denies tingling and Denies weakness Psych Details: Difficulty sleeping Reports anxiety and Denies depression Endo Denies fatigue Aller/Immun Denies wheezing Physical exam (Primary Care) Vital Signs: Last Vital Signs Temp 97.9 F 04/18/24 15:44 Pulse 87 04/18/24 15:44 Resp 16 04/18/24 15:44 BP 120/70 04/18/24 15:44 Pulse Ox 96 04/18/24 15:44 Oxygen Delivery Method Room Air 04/18/24 15:44 BMI result Body Mass Index 25.7 Tobacco/Smoking Status: Tobacco use Status Tobacco use date assessed 03/16/24 04/18/24 15:47 Patient Tobacco Use Status Former Tobacco user 04/18/24 15:47 e-Cigarette/Vaping Use Never Used 04/18/24 15:47 Thrive Assessment: Date of Thrive Assessment Date Thrive assessed 03/16/24 04/18/24 15:47 Const General: well developed; No acute distress Nutritional Appearance: well nourished Orientation/consciousness: patient oriented x3 [facility] Head: Yes normocephalic and Yes atraumatic Eyes General: appearance normal, both eyes and all related structures Pupils: Equal, round and reactive pupils present EOM: EOMs intact bilaterally Resp Effort & Inspection: normal respiratory effort Neuro General: patient oriented x3 and gait normal Cranial nerves: Yes Equal, round and reactive pupils present Psych Affect: normal affect Assessment and Plan Assessment & Plan (1) Hyperlipidemia: Code(s): E78.5 - Hyperlipidemia, unspecified Plan: LDL?cholesterol?is?too?high.??Patient?has?history?of?coronary?artery?disease?and ?is?followed?by?Dr. Cortes He?is?already?taking?Zetia He?has?not?tolerated?statins?or Repatha Encouraged?ongoing?diet?low?in?saturated?fats?and?cholesterol Encouraged?exercise?and?weight?control Follow-up?with?Cardiology?as?recommended (2) Coronary artery disease: Code(s): I25.10 - Atherosclerotic heart disease of [place] coronary artery without angina pectoris Plan: Stable (3) Hypertension: Code(s): I10 - Essential (primary) hypertension Plan: Blood?pressure?is?controlled.??Goal?is?less?than?130/80 Continue?current?medication (4) Anxiety: Code(s): F41.9 - Anxiety disorder, unspecified Plan: Anxiety?and?difficulty?sleeping.??Lorazepam?was?not?helping?enough?with?sleep?an d?clonazepam?did?not?help?much?either Will?try?zolpidem?which?he?says?has?helped?past However,?patient?acknowledges?a?history?of?sleep?apnea and?I?recommend?he?have?this?worked?up - see?below (5) Sleep apnea: Code(s): G47.30 - Sleep apnea, unspecified Plan: History?of?sleep?apnea.??He?has?had?a?CPAP?machine?in?the?past. Recommend?he?be?re-evaluated. Referred?to?Sleep?Medicine (6) Shoulder pain: Code(s): M25.519 - Pain in unspecified shoulder Plan: Ongoing?right?shoulder?pain.??History?of?right?shoulder?replacement Start?physical?therapy He?can?continue?tramadol?sparingly (7) Low HDL (under 40): Code(s): E78.6 - Lipoprotein deficiency Plan: Follow-up?with?Cardiology Recommended?exercise (8) Cervicalgia: Code(s): M54.2 - Cervicalgia Plan: Right?shoulder?and?neck?pain Start?physical?therapy Orders: Orders PT Evaluation and Treatment Today M25.519 - Pain in unspecified shoulder, M54.2 - Cervicalgia Referrals Sleep Medicine Referral G47.30 - Sleep apnea, unspecified Medications: New ezetimibe (Zetia) 10 mg PO DAILY 90 tabs 3RF 90 days zolpidem MassPat Verified 5 mg PO BEDTIME PRN 30 tabs 0RF sleep 30 days G47.9 - Sleep disorder, unspecified Refilled tramadol #10 tabs per 30 days 50 mg PO DAILY PRN 10 tabs 0RF pain 30 days G47.9 - Sleep disorder, unspecified Coding Level of Care Code Est Pt Level 4 (70719) Diagnoses Hyperlipidemia E78.5 Coronary artery disease I25.10 Hypertension I10 Anxiety F41.9 Sleep apnea G47.30 Shoulder pain M25.519 Low HDL (under 40) E78.6 Cervicalgia M54.2
[2024-04-18 15:44] VITALS: BP 120/70; PULSE 87; RESP 16; TEMP 36.6; O2SAT 96; BMI 25.7
== END 2024-04-18 16:13 | disposition home or self-care (01) ==
PROVIDERS: PCP Family Medicine; Visit Provider Family Medicine
DX: E78.5 Hyperlipidemia, unspecified (principal); I25.10 Atherosclerotic heart disease of native coronary artery without angina pectoris; I10 Essential (primary) hypertension; F41.9 Anxiety disorder, unspecified; G47.30 Sleep apnea, unspecified; M25.519 Pain in unspecified shoulder; E78.6 Lipoprotein deficiency; M54.2 Cervicalgia
CPT/HCPCS: 99214

== ENCOUNTER 2024-04-20 12:32 | Outpatient (AMB) | payer MEDICARE, SELFPAY ==
[2024-04-20 12:37] VITALS: BMI 25.7
--- NOTE | 2024-04-20 12:37 | A.OFFVIS_ITS ---
Vital Signs 04/20/24 12:37 Height 5 ft 4 in Weight 150 lb BMI 25.7 Intake Visit Reasons: PO LT RF trigger 04/07/24 AR Intake Note: Armando is a 73 yo left hand dominant male who presents today post operatively s/p left ring finger trigger release done 04/07/[address] Hargrove. Patient denies numbness, tingling, or locking on finger. Patient has redness and swelling superiorly to the incision. Sutures removed in office today and steri strips applied. Allergies amoxicillin Allergy (Mild, Verified 04/18/24 15:39) Rash Penicillins Allergy (Mild, Verified 04/18/24 15:39) Rash HPI HPI PO LT RF trigger 04/07/24 AR: Details: Armando is a 73 year old right hand dominant man who returns S/P left ring finger trigger release, DOS: 04/07/24. He says he is doing well and he no longer has locking of his ring finger. He is happy with the results of his surgery. He says he has not routinely been washing his hand with soap & water. He has CAD & COPD. [facility] Medical History No pertinent past medical history Surgical History No pertinent past surgical history Family History Other Substance abuse Social History Housing: House Patient Tobacco Use Status: Former Tobacco user e-Cigarette/Vaping Use: Never Used service: No Current occupational status: retired Current occupation: Left hand dominant Cognitive needs: No Hearing needs: No Vision needs: No Review of Systems Const All systems reviewed & are unremarkable except as noted in HPI and below Physical Exam Vital Signs: BMI result Body Mass Index 25.7 Const General: no acute distress and alert Orientation/consciousness: patient oriented x3 Neuro General: patient oriented x3 Extrem Other: The patient was alert oriented and in no acute distress The incision is healing well with no drainage or evidence of infection. Sutures removed and Steri-Strips applied He has some mild swelling about his incision He can make a fist and extend all his digits No locking or catching of the ring finger Sensation is intact Cap refill is brisk Psych Appearance: grossly normal Affect: normal affect Attitude: cooperative Assessment & Plan Assessment & Plan (1) Trigger finger, left ring finger: Code(s): M65.342 - Trigger finger, left ring finger Category: Medical Plan Assessment & Plan: 1. Left ring finger trigger finger, S/P release DOS: 04/07/24 The patient appears to be doing well post-operatively I educated him about the post-operative course I explained the signs and symptoms of infection, if the patient develops any new or worsening erythema, drainage, pain, or warmth they should contact the clinic or attend the ED. I discussed activity modifications, he is to lift nothing heavier than a cellphone for the next two weeks He will perform gentle ROM exercises at home He should avoid any underwater activities for the next 5 days He should gently massage about the incision site to reduce the risk of hypersensitivity He can follow up prn Scribed for Monique Hargrove MD by edelimra Guerrero scribe, on 04/20/24 at 1:00 PM, EST. Scribe Plan - Not visible on output: Scribed for Monique Hargrove MD by Andrea Perez medical physics professor, on [ ] at [ ], EST. Coding Level of Care Code Global (53082) Diagnoses Trigger finger, left ring finger M65.342
== END 2024-04-20 13:12 | disposition home or self-care (01) ==
PROVIDERS: PCP Family Medicine; Visit Provider Orthopaedic Surgery
DX: M65.342 Trigger finger, left ring finger (principal)
CPT/HCPCS: 99024

== ENCOUNTER → 2024-04-20 12:32 | Outpatient (BNVA) | payer MEDICARE, SELFPAY | PROVIDERS: PCP Family Medicine; Visit Provider Orthopaedic Surgery | DX: Z48.02 Encounter for removal of sutures (principal); Z87.39 Personal history of other diseases of the musculoskeletal system and connective tissue | CPT/HCPCS: 99212 ==

== ENCOUNTER 2024-05-12 09:00 | Outpatient (RCR) | payer OTHER, MEDICARE, SELFPAY ==
--- NOTE | 2023-11-18 15:08 | MHC.PT.EP ---
[facility] [place] [facility] [place] [facility] [place] [facility] [address] Michael Moore [address] [phone] F: [phone] F: [phone] F: [phone] F: [phone] Physical Therapy Plan of Care Date of Evaluation: 11/18/23 Date of Surgery: 2003,2004, 2018 Diagnosis: L NECK PAIN AND R SHLDER PAIN Assessment: Pt IS 73 YO M REFERRED TO PT FROM DR BROWN WITH R SHLDER PAIN AND L SIDED NECK PAIN. 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 HAS HAD NECK SURGERY ( PIN ) AND SHLDER SURGERY X 2 ON R (ARTHROSCOPIC THEN TOTAL SHOULDER REPLACEMENT) AND L SHLDER. PRESENTS WITH LIMITED CERV ROM (ROSALIA L ROT), SHLDER ROM WFLS, DECREASED SHOULDER STRENGTH, LIMITED POSTURE. HAS HAD PT IN PAST. SHOULD BENEFIT FROM PT TO HELP WITH ROM AND STRENGTH AND HELP DECREASE PAIN Frequency and Duration: The patient will be seen 2X/WK X 6 WKS Short Term Goals: 1. INCREASED AWARENESS OF POSTURE AND NECK AND SHLDER CARE 2. I HEP WITH DC EX PLAN 3. IMPROVED SLEEP Half-Way Goals: 1. INCREASED CERV ROM FOR L ROT 25% AND SB 25% B 2. DECREASED PAIN IN NECK AT LEAST 50% WITH ADLS 3. DECREASED R SHLDER PAIN AT LEAST 50% WITH ADLS Treatment Plan: Modalities to reduce pain, spasms and effusion. Manual therapy to restore motion and function. Therapeutic exercise to improve strength and flexibility. Neuromuscular re-education for posture and balance. Therapeutic activities to return to functional activities of daily living. Electronically signed by: RON PANTOJA PT Please sign and return to therapist. Thank you for your referral.
--- NOTE | 2024-02-23 08:44 | MHC.PT.DC ---
[facility] [place] Office [place] [facility] [place] Office [address] Michael Moore [address] [phone] F: [phone] F: [phone] F: [phone] F: [phone] Physical Therapy Discharge Report Diagnosis: L NECK PAIN AND R SHLDER PAIN Date of Surgery: 2003,2004, 2018 Date of Evaluation: 11/18/23 Date of Discharge: 02/23/24 Treatments to Date: 6 Cancellations to Date: No Shows to Date: Discharge Status: Recommend MD Follow-up Discharge Summary: PER ASSESSMENT FROM LAST NOTE BY KARINA MOREIRA PT,DPT ON 12/04/23 'Pt expressing improvement in neck pain, at least today. Reports ongoing R shoulder sx unrelived with tasks we have tried in PT thus far. Pt to see Dr. Hargrove to consult for L ?trigger finger. Pt to be placed on hold at this time. Pt has I carryover of TENs machine and HEP, has been advised to continue use of TENS PRN for sx relief.' NO FURTHER APPTS SCHEDULED Electronically signed by: RON PANTOJA PT Please sign and return to therapist. Thank you for your referral.
== END 2024-07-18 09:57 ==
LOC: HO.PTWFD 09:00
PROVIDERS: PCP Family Medicine; Visit Provider Family Medicine
DX: M25.511 Pain in right shoulder (principal); M54.2 Cervicalgia
CPT/HCPCS: 97014; 97110; 97140; 97162; 97164; 97530; 97535

== ENCOUNTER 2024-06-09 10:50 | Outpatient (AMB) | payer MEDICARE, SELFPAY ==
--- NOTE | 2024-06-09 10:53 | MHC.OFFVIS ---
Intake Visit Reasons: OV- Right shoulder follow up Intake Note: Armando is a 73 year old right hand dominant male who presents today for a follow up of his right shoulder. Hx of Right TSA done in 2013 in [place]. At his last visit in January there was some mild rotator cuff weakness, but no intervention was warranted. Patient reports that he is having continued pain in the right shoulder which is particularly painful at night while trying to sleep. Allergies amoxicillin Allergy (Mild, Verified 06/09/24 11:11) Rash Penicillins Allergy (Mild, Verified 06/09/24 11:11) Rash HPI HPI OV- Right shoulder follow up: Details: This is a 73-year-old gentleman with a 10 year history of right shoulder replacement. I have seen him in the past and was doing okay but comes back today complaining of pain mostly at night. He states if he were able to sleep he would be okay. He states he can get his hand to the back of his head. He does have some difficulty with heavy lifting but for the most part his complaint is pain at night PFSH Medical History No pertinent past medical history Surgical History No pertinent past surgical history Family History Other Substance abuse Social History Housing: House Patient Tobacco Use Status: Former Tobacco user e-Cigarette/Vaping Use: Never Used service: No Current occupational status: retired Current occupation: Left hand dominant Cognitive needs: No Hearing needs: No Vision needs: No Physical Exam Const General: cooperative, healthy appearing, no acute distress and well groomed Orientation/consciousness: oriented to person and oriented to place HEENT Head: Yes normal to inspection, Yes normocephalic and Yes atraumatic Eyes General: appearance normal, both eyes and all related structures Alignment and Position: alignment normal Conjunctivae: conjunctivae normal EOM: EOMs intact bilaterally Neck Neck: Yes normal visual inspection and Yes trachea midline Resp Other: No rerpiratory distress Effort & Inspection: normal respiratory effort and able to speak in complete sentences GI Other: No abdominal distension Back/Spine/Pelvis Cervical Spine: normal cervical lordosis and cervical ROM normal Skin General skin exam: no rashes or lesions noted Neuro General: oriented to person, oriented to place and gait normal Extrem Other: Full range of motion with smooth arc of abduction. A negative empty can although question of superior migration of the humerus with abduction. Negative lift-off. There istenderness to palpation over the bicipital groove. Incision well healed. Assessment & Plan Assessment & Plan (1) Status post replacement of right shoulder joint: Code(s): Z96.611 - Presence of right artificial shoulder joint Category: Surgical Plan: Status post shoulder replacement. I had a long discussion with him regarding the radiographs and treatment options. He may have a slightly dysfunctional rotator cuff but his motion and pain are adequate and I think a large revision shoulder arthroplasty surgery is not indicated given that his primary complaint is pain at night. I am not sure this would improve. It may and if he is willing to take the risk is probably reasonable but I do not recommend it. At this point in time I will refer him to our pain management colleagues to see if there is anything they can do to ameliorate his night pain. Orders: Referrals Pain Management Referral Z96.611 - Presence of right artificial shoulder joint Coding Level of Care Code Est Pt Level 3 (10599) Diagnoses Status post replacement of right shoulder joint Z96.611
== END 2024-06-09 11:36 | disposition home or self-care (01) ==
PROVIDERS: PCP Family Medicine; Visit Provider Orthopaedic Surgery
DX: Z47.1 Aftercare following joint replacement surgery (principal); Z96.611 Presence of right artificial shoulder joint
CPT/HCPCS: 99213

== ENCOUNTER → 2024-06-09 10:50 | Outpatient (BNVA) | payer MEDICARE, SELFPAY | PROVIDERS: PCP Family Medicine; Visit Provider Orthopaedic Surgery | DX: Z96.611 Presence of right artificial shoulder joint (principal); Z98.890 Other specified postprocedural states | CPT/HCPCS: 99212 ==

== ENCOUNTER 2024-06-24 13:17 | Outpatient (AMB) | payer MEDICARE, SELFPAY ==
--- NOTE | 2024-06-24 13:19 | A.OFFVIS_ITS ---
Vital Signs 06/24/24 13:21 Height 5 ft 4 in Weight 150 lb BMI 25.7 BP 141/74 H Blood Pressure Location Lt brachial Position Sitting Respiration 16 Pulse 67 Pulse Source Pulse Oximeter Pulse Oximetry (%) 98 Oxygen Delivery Method Room Air Intake Visit Reasons: Presence of right artificial shoulder joint Intake Note: Right shoulder and low back with left sided radicular pain is 5-10/10 Allergies amoxicillin Allergy (Mild, Verified 06/24/24 13:22) Rash Penicillins Allergy (Mild, Verified 06/24/24 13:22) Rash Medication List - Last Reconciled 06/24/24 by Lakesha Abarca LPN aspirin (Adult Aspirin Regimen) 81 mg PO DAILY diclofenac sodium 1% (Voltaren Arthritis Pain) 2 grams topical QID 30 days ezetimibe (Zetia) 10 mg PO DAILY 90 days gabapentin 600 mg PO BID melatonin mg PO .prn metoprolol succinate ER 12.5 mg (1/2 x 25 mg) PO DAILY 90 days omeprazole 20 mg PO DAILY tamsulosin 0.4 mg PO BEDTIME 30 days tramadol 50 mg PO DAILY PRN 30 days zolpidem 5 mg PO BEDTIME PRN 30 days HPI HPI Presence of right artificial shoulder joint: Details: Patient is a pleasant 73-year-old gentleman with a 10 year history of right s houlder replacement at [place] and persistent mild dysfunctional right rotator cuff, cervical fusion with rods in place at C5-C6, cervical degenerative disc disease, left shoulder pain, presents today for initial evaluation of right shoulder pain worse night. He reports work related injury in 2003 due to heavy lifting which injured his neck and shoulder. 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 Patient was referred to us by Dr. Olivas, [facility] as he does not indicate a large revision shoulder arthroplasty surgery. Patient reports he was offered reversal shoulder surgery at [facility] but is hesitant to undergo any additional surgery. Right shoulder pain has been localized to lateral and anterior aspects with mild tenderness. Pain is worse at night and during the day with activities and movements. Reports disrupted sleep due to constant need to reposition. He also has left shoulder pain due to OA. Reports remote history of therapeutic injections with mixed results. Neck pain is worse with extension and limited on the left, associated with increased pain in shoulders and muscle stiffness. Patient reports oral and topical medications provide temporary relief and allow slightly improved functioning. Chronic shoulder pain has been resistant to conservative treatments. Patient also reports significant low back pain, worse with lumbar extension and axial rotations and relieved by bending forward. Denies any fever or chills, unintentional weight loss, dizziness, shortness of breath, chest pain, weakness, paresthesias, bladder or bowel dysfunction or saddle anesthesia. Location: Bilateral shoulder pain, right>left, neck, low back pain into LLE Duration: Chronic pain since 2003 due to heavy work Characteristics of symptom or complaint: Throbbing, tiring, radiating, dull, sore, hurting, heavy Aggravating or associated factors: Sleeping on sides, movements, pulling, lifting Relieving factors: Changing positions, tramadol, gabapentin, modifying activit ies Treatment: Injections, PT, Chiropractic, massage, acupuncture, TENS, home traction [facility] Medical History Cervicalgia Hyperlipidemia Hypertension Bilateral shoulder pain COPD (chronic obstructive pulmonary disease) Left hand pain Trigger finger, left ring finger Coronary artery disease Chronic low back pain Surgical History History of hemiarthroplasty of right shoulder Family History Other Substance abuse Social History Housing: House Alcohol intake: current Alcohol intake frequency: a few times a week Alcohol type: beer Patient Tobacco Use Status: Former Tobacco user e-Cigarette/Vaping Use: Never Used service: No Current occupational status: retired Current occupation: Left hand dominant Cognitive needs: No Hearing needs: No Vision needs: No Review of Systems Const All systems reviewed & are unremarkable except as noted in HPI and below Physical Exam Vital Signs: Last Vital Signs Pulse 67 06/24/24 13:21 Resp 16 06/24/24 13:21 BP 141/74 H 06/24/24 13:21 Pulse Ox 98 06/24/24 13:21 Oxygen Delivery Method Room Air 06/24/24 13:21 BMI result Body Mass Index 25.7 General: Appears afebrile. Alert and oriented. Mood and affect appropriate. Follows and participates in conversation appropriately. Respiratory effort is unlabored. No cough. Able to transition from sit to stand unassisted. Ambulates with bilaterally normal heel strike and toe off. Neck Neck: Yes no lymphadenopathy, Yes supple, No anterior neck swelling, Yes no JVD and No prominent dorsocervical fat pad Back/Spine/Pelvis Cervical Spine: loss of normal cervical lordosis, cervical muscular tenderness, pain with cervical ROM, Cervical spine scars present, No Cervical spine tenderness and No step off deformity Thoracic/Lumbar Spine: thoracic and lumbar spine normal to inspection, No Thoracic/lumbar spine scar(s), Lasegue's sign positive on the left and localized, pain with thoraco-lumbar ROM, paraspinal muscle tenderness, No thoracic spinal tenderness and lumbar spinal tenderness (L4-S1) Pelvis: buttock tenderness on the left and sciatic notch tenderness on the left Sacroiliac joints: bilaterally nontender Extrem General: Yes capillary refill normal, Yes no clubbing, cyanosis or edema and Yes no calf tenderness Right upper extremity: shoulder/upper arm (Well-healed incision. Mildly limited ROM due to pain. ) Details: normal to inspection and tenderness (Anterior aspects and bicipital groove) Location: over the biceps tendon; no swelling and no unusual warmth Results Reviewed Results Reviewed: XR SHOULDER, RIGHT 12/24/23 FINDINGS: Bony alignment and mineralization are normal. There is an intact right shoulder arthroplasty, without hardware failure, loosening or periprosthetic fracture. The arthroplasty is well seated within the glenoid. The acromioclavicular and coracoclavicular intervals are normal. No soft tissue calcifications or foreign body seen. There is no right pneumothorax. IMPRESSION: An intact right shoulder arthroplasty is seen, without hardware failure, loosening or periprosthetic fracture. Assessment & Plan Assessment & Plan (1) Lumbar degenerative disc disease: Code(s): M51.369 - Other intervertebral disc degeneration, lumbar region without mention of lumbar back pain or lower extremity pain Category: Medical (2) Chronic low back pain: Code(s): M54.50 - Low back pain, unspecified; G89.29 - Other chronic pain Category: Medical (3) Lumbosacral spondylosis: Code(s): M47.817 - Spondylosis without myelopathy or radiculopathy, lumbosacral region Category: Medical (4) History of hemiarthroplasty of right shoulder: Code(s): Z96.611 - Presence of right artificial shoulder joint Category: Surgical (5) Bilateral shoulder pain: Code(s): M25.511 - Pain in right shoulder; M25.512 - Pain in left shoulder Category: Medical Plan Discussed interventional treatments for shoulder and low back pain. Inf ormational pamphlets provided to patient. Lumbar spine imaging to assess degree of degenerative changes, any subluxation, listhesis, compression fractures or pars defects. Schedule Right diagnostic suprascapular nerve block for chronic right shoulder pain for potential Sprint PNS trial if there's a successful response to the diagnostic block. Patient expressed understanding and is in agreement with the plan. Patient is aware he will be contacted to schedule this procedure. Justification for interventional therapy: ? Patient with average pain > 6/10 ? Patient has exhausted conservative therapy The risks, consequences, alternatives, and benefits of various treatment options were discussed with the patient in great detail, including conservative management, injections and procedures. All questions and concerns have been answered and patient agreed with the treatment plan. Follow-up after injection and sooner as needed. Orders: Orders XR lumbar spine 6V w bending 06/24/24 G89.29 - Other chronic pain, M47.817 - Spondylosis without myelopathy or radiculopathy, lumbosacral region, M51.369 - Other intervertebral disc degeneration, lumbar region without mention of lumbar back pain or lower extremity pain, M54.50 - Low back pain, unspecified Coding Level of Care Code New Pt Level 4 (88517) Complex EM visit Add On G2211 Diagnoses Lumbar degenerative disc disease M51.369 Chronic low back pain M54.50; G89.29 Lumbosacral spondylosis M47.817 History of hemiarthroplasty of right shoulder Z96.611 Bilateral shoulder pain M25.511; M25.512
[2024-06-24 13:21] VITALS: BP 141/74; PULSE 67; RESP 16; O2SAT 98; BMI 25.7
== END 2024-06-24 14:13 | disposition home or self-care (01) ==
PROVIDERS: PCP Family Medicine; Visit Provider Nurse Practitioner Family
DX: M51.369 Other intervertebral disc degeneration, lumbar region without mention of lumbar back pain or lower extremity pain (principal); M54.50 Low back pain, unspecified; G89.29 Other chronic pain; M47.817 Spondylosis without myelopathy or radiculopathy, lumbosacral region; Z96.611 Presence of right artificial shoulder joint; M25.511 Pain in right shoulder; M25.512 Pain in left shoulder
CPT/HCPCS: 99204; G2211

== ENCOUNTER → 2024-06-24 13:17 | Outpatient (BNVA) | payer MEDICARE, SELFPAY | PROVIDERS: PCP Family Medicine; Visit Provider Nurse Practitioner Family | DX: M25.511 Pain in right shoulder (principal); M25.512 Pain in left shoulder; M54.50 Low back pain, unspecified; G89.29 Other chronic pain; M51.369 Other intervertebral disc degeneration, lumbar region without mention of lumbar back pain or lower extremity pain; M47.817 Spondylosis without myelopathy or radiculopathy, lumbosacral region; Z96.611 Presence of right artificial shoulder joint | CPT/HCPCS: 99202 ==

== ENCOUNTER 2024-07-21 06:24 | Outpatient (REF) | payer OTHER, MEDICARE, SELFPAY | END 2024-07-21 06:25 | disposition home or self-care (01) | LOC: CF 06:24 | PROVIDERS: Visit Provider Internal Medicine | DX: M75.101 Unspecified rotator cuff tear or rupture of right shoulder, not specified as traumatic (principal); M12.811 Other specific arthropathies, not elsewhere classified, right shoulder; M25.511 Pain in right shoulder; M25.512 Pain in left shoulder | CPT/HCPCS: 64418; J2795 ==

== ENCOUNTER 2024-07-21 12:55 | Outpatient (AMB) | payer OTHER, MEDICARE, SELFPAY ==
--- NOTE | 2024-07-21 12:55 | MHC.OFFVIS ---
Vital Signs 07/21/24 12:59 07/21/24 13:37 BP 146/85 H 147/85 H Blood Pressure Location Lt brachial Rt brachial Position Sitting Sitting Pulse 86 80 Pulse Source Pulse Oximeter Pulse Oximeter Pulse Oximetry (%) 98 98 Oxygen Delivery Method Room Air Room Air Intake Visit Reasons: right Dx suprascapular NB Allergies amoxicillin Allergy (Mild, Verified 06/24/24 13:22) Rash Penicillins Allergy (Mild, Verified 06/24/24 13:22) Rash HPI HPI right Dx suprascapular NB: Details: Patient presents for scheduled procedure. Denies any recent cough, cold, infection, fever or other significant changes in medical history since last office visit. [facility] Medical History Cervicalgia Hyperlipidemia Hypertension Bilateral shoulder pain COPD (chronic obstructive pulmonary disease) Left hand pain Trigger finger, left ring finger Coronary artery disease Chronic low back pain Surgical History History of hemiarthroplasty of right shoulder Family History Other Substance abuse Social History Housing: House Alcohol intake: current Alcohol intake frequency: a few times a week Alcohol type: beer Patient Tobacco Use Status: Former Tobacco user e-Cigarette/Vaping Use: Never Used service: No Current occupational status: retired Current occupation: Left hand dominant Cognitive needs: No Hearing needs: No Vision needs: No Physical Exam Vital Signs: Last Vital Signs Pulse 80 07/21/24 13:37 BP 147/85 H 07/21/24 13:37 Pulse Ox 98 07/21/24 13:37 Oxygen Delivery Method Room Air 07/21/24 13:37 Office Procedures Nerve Block Details: Diagnostic suprascapular nerve block, right After obtaining written consent, pre-procedure blood pressure and heart rate were stable and recorded in the nursing record. The patient was placed in a sitting position. The area overlying the peripheral nerve was widely prepped with chloraprep, allowed to dry and sterilely draped. Using ultrasound, the appropriate landmarks were identified. A 21 gauge 100 mm needle was advanced under ultrasound guidance to the suprascapular notch. Aspiration was negative for heme and synovial fluid. 2 cc of ropivacaine 0.5% was injected around the targeted nerve. The needle was removed, skin cleansed and a sterile bandage was applied. The patient tolerated the procedure well and no complications were encountered. Following the procedure the patient's vital signs were stable. The patient was discharged home in good condition with post-procedural instructions. Time Out: Immediately prior to the procedure, the following was verbally confirmed that there is a signed consent form and that the correct patient, planned procedure, site and side are consistent with documentation and that necessary equipment and/or blood products are available prior to the start of the case. Complications: none EBL: <5 cc 62459 - Suprascapular Procedure code (CPT) selection complete Assessment & Plan Assessment & Plan (1) Rotator cuff tear arthropathy of right shoulder: Code(s): M75.101 - Unspecified rotator cuff tear or rupture of right shoulder, not specified as traumatic; M12.811 - Other specific arthropathies, not elsewhere classified, right shoulder Category: Medical (2) Bilateral shoulder pain: Code(s): M25.511 - Pain in right shoulder; M25.512 - Pain in left shoulder Category: Medical Plan Patient is status post right suprascapular nerve block. Patient tolerated procedure well and was discharged home in stable condition with discharge instructions. All questions were answered. We will follow-up via telephone or in clinic to assess response to therapy. A follow-up appointment was made during today's visit. Orders: Orders FL guidance in treatment room Today M12.811 - Other specific arthropathies, not elsewhere classified, right shoulder, M75.101 - Unspecified rotator cuff tear or rupture of right shoulder, not specified as traumatic Coding Level of Care Code Procedure Only Diagnoses Rotator cuff tear arthropathy of right shoulder M75.101; M12.811 Bilateral shoulder pain M25.511; M25.512 CPT Codes Nerve Block - Nerve Block 4: 78635 - Suprascapular ([id number])
[2024-07-21 12:59] VITALS: BP 146/85; PULSE 86; O2SAT 98
[2024-07-21 13:37] VITALS: BP 147/85; PULSE 80; O2SAT 98
== END 2024-07-21 13:38 | disposition home or self-care (01) ==
LOC: HO.PMCPRC 12:55
PROVIDERS: PCP Family Medicine; Visit Provider Internal Medicine
DX: M75.101 Unspecified rotator cuff tear or rupture of right shoulder, not specified as traumatic (principal); M12.811 Other specific arthropathies, not elsewhere classified, right shoulder; M25.511 Pain in right shoulder
CPT/HCPCS: 64418

== ENCOUNTER 2024-07-28 11:03 | Outpatient (AMB) | payer OTHER, MEDICARE, SELFPAY ==
--- NOTE | 2024-07-28 11:05 | MHC.OFFVIS ---
Vital Signs 07/28/24 11:11 Height 5 ft 4 in Weight 146 lb BMI 25.1 BP 155/81 H Blood Pressure Location Lt brachial Position Sitting Pulse 62 Pulse Source Pulse Oximeter Pulse Oximetry (%) 97 Oxygen Delivery Method Room Air Intake Visit Reasons: s/p right Dx suprascapular NB Break Up Worker Required: No Accompanied by: Spouse Allergies amoxicillin Allergy (Mild, Verified 07/28/24 11:12) Rash Penicillins Allergy (Mild, Verified 07/28/24 11:12) Rash HPI Comments Details: Patient presents today to assess response to right suprascapular nerve block on 07/21/[address] Beltrán. Patient reports 50-60% since procedure with some exacerbation of his symptoms post injection. He did notify our office on 07/22/24 with increased pain and was prescribed tramadol to manage post-procedural pain as well as took Tylenol and ice packing. Denies any incision site redness, swelling or tenderness. He reports diagnostic injection precisely targeted the intended pain coverage in his shoulder and he fell pain relief day 2 and day 3 post injection. Patient is interested to proceed with a right suprascapular temporary PNS therapy for a longer term pain relief. Patient's was present during today's visit and we reviewed Sprint PNS system on a visual model for device care and dressing changes. Denies any recent cough, cold, infection, fever or other significant changes in medical history since last office visit. Past Procedures: 07/21/24: Right suprascapular nerve block- % pain relief for hours PRIOR: Patient is a pleasant 73-year-old gentleman with a 10 year history of right shoulder replacement at [place] and persistent mild dysfunctional right rotator cuff, cervical fusion with rods in place at C5-C6, cervical degenerative disc disease, left shoulder pain, presents today for initial evaluation of right shoulder pain worse night. He reports work related injury in 2003 due to heavy lifting which injured his neck and shoulder. 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 Patient was referred to us by Dr. Olivas, [facility] as he does not indicate a large revision shoulder arthroplasty surgery. Patient reports he was offered reversal shoulder surgery at [facility] but is hesitant to undergo any additional surgery. Right shoulder pain has been localized to lateral and anterior aspects with mild tenderness. Pain is worse at night and during the day with activities and movements. Reports disrupted sleep due to constant need to reposition. He also has left shoulder pain due to OA. Reports remote history of therapeutic injections with mixed results. Neck pain is worse with extension and limited on the left, associated with increased pain in shoulders and muscle stiffness. Patient reports oral and topical medications provide temporary relief and allow slightly improved functioning. Chronic shoulder pain has been resistant to conservative treatments. Patient also reports significant low back pain, worse with lumbar extension and axial rotations and relieved by bending forward. Denies any fever or chills, unintentional weight loss, dizziness, shortness of breath, chest pain, weakness, paresthesias, bladder or bowel dysfunction or saddle anesthesia. Location: Bilateral shoulder pain, right>left, neck, low back pain into LLE Duration: Chronic pain since 2003 due to heavy work Characteristics of symptom or complaint: Throbbing, tiring, radiating, dull, sore, hurting, heavy Aggravating or associated factors: Sleeping on sides, movements, pulling, lifting Relieving factors: Changing positions, tramadol, gabapentin, modifying activities Treatment: Injections, PT, Chiropractic, massage, acupuncture, TENS, home traction [facility] Medical History Cervicalgia Hyperlipidemia Hypertension Bilateral shoulder pain COPD (chronic obstructive pulmonary disease) Left hand pain Trigger finger, left ring finger Coronary artery disease Chronic low back pain Surgical History History of hemiarthroplasty of right shoulder Family History Other Substance abuse Social History Housing: House Alcohol intake: current Alcohol intake frequency: a few times a week Alcohol type: beer Patient Tobacco Use Status: Former Tobacco user e-Cigarette/Vaping Use: Never Used service: No Current occupational status: retired Current occupation: Left hand dominant Cognitive needs: No Hearing needs: No Vision needs: No Review of Systems Const All systems reviewed & are unremarkable except as noted in HPI and below Physical Exam General: Appears afebrile. Alert and oriented. Mood and affect appropriate. Follows and participates in conversation appropriately. Respiratory effort is unlabored. No cough. Able to transition from sit to stand unassisted. Ambulates with bilaterally normal heel strike and toe off. Neck Neck: Yes no lymphadenopathy, Yes supple, No anterior neck swelling, Yes no JVD and No prominent dorsocervical fat pad Back/Spine/Pelvis Cervical Spine: loss of normal cervical lordosis, cervical muscular tenderness, pain with cervical ROM, Cervical spine scars present, No Cervical spine tenderness and No step off deformity Thoracic/Lumbar Spine: thoracic and lumbar spine normal to inspection, No Thoracic/lumbar spine scar(s), pain with thoraco-lumbar ROM, paraspinal muscle tenderness, No thoracic spinal tenderness and lumbar spinal tenderness (L4-S1) Pelvis: buttock tenderness on the left and sciatic notch tenderness on the left Sacroiliac joints: bilaterally nontender Extrem General: Yes capillary refill normal, Yes no clubbing, cyanosis or edema and Yes no calf tenderness Right upper extremity: shoulder/upper arm (Well-healed incision. Limited ROM due to pain. ) Details: normal to inspection, tenderness (Anterior aspects and bicipital groove) Location: over the biceps tendon and crepitus; no swelling, no ecchymosis, no deformity and no unusual warmth Results Reviewed Results Reviewed: XR SHOULDER, RIGHT 12/24/23 FINDINGS: Bony alignment and mineralization are normal. There is an intact right shoulder arthroplasty, without hardware failure, loosening or periprosthetic fracture. The arthroplasty is well seated within the glenoid. The acromioclavicular and coracoclavicular intervals are normal. No soft tissue calcifications or foreign body seen. There is no right pneumothorax. IMPRESSION: An intact right shoulder arthroplasty is seen, without hardware failure, loosening or periprosthetic fracture. Assessment & Plan Assessment & Plan (1) Bilateral shoulder pain: Code(s): M25.511 - Pain in right shoulder; M25.512 - Pain in left shoulder Category: Medical (2) Rotator cuff tear arthropathy of right shoulder: Code(s): M75.101 - Unspecified rotator cuff tear or rupture of right shoulder, not specified as traumatic; M12.811 - Other specific arthropathies, not elsewhere classified, right shoulder Category: Medical (3) History of hemiarthroplasty of right shoulder: Code(s): Z96.611 - Presence of right artificial shoulder joint Category: Surgical Plan Patient is one week s/p right suprascapular nerve diagnostic injection with increased pain following the injection but reports improvement day 2 and 3 post injection with improvement in ADLs, sleep and social activities. Schedule right suprascapular temporary PNS therapy with local and US guidance for chronic right shoulder pain. Expectations, risks and benefits were reviewed. Patient is aware he will be contacted to schedule this procedure. All questions were answered and the patient is in agreement of plan. Follow-up after Sprint PNS placement and sooner as needed. Coding Level of Care Code Est Pt Level 4 (67674) Complex EM visit Add On G2211 Diagnoses Bilateral shoulder pain M25.511; M25.512 Rotator cuff tear arthropathy of right shoulder M75.101; M12.811 History of hemiarthroplasty of right shoulder Z96.611
[2024-07-28 11:11] VITALS: BP 155/81; PULSE 62; O2SAT 97; BMI 25.1
== END 2024-07-28 11:31 | disposition home or self-care (01) ==
PROVIDERS: PCP Family Medicine; Visit Provider Nurse Practitioner Family
DX: M25.511 Pain in right shoulder (principal); M25.512 Pain in left shoulder; M75.101 Unspecified rotator cuff tear or rupture of right shoulder, not specified as traumatic; M12.811 Other specific arthropathies, not elsewhere classified, right shoulder; Z96.611 Presence of right artificial shoulder joint
CPT/HCPCS: 99214; G2211

== ENCOUNTER → 2024-07-28 11:03 | Outpatient (BNVA) | payer OTHER, MEDICARE, SELFPAY | PROVIDERS: PCP Family Medicine; Visit Provider Nurse Practitioner Family | DX: M25.511 Pain in right shoulder (principal); M25.512 Pain in left shoulder; M75.101 Unspecified rotator cuff tear or rupture of right shoulder, not specified as traumatic; M12.811 Other specific arthropathies, not elsewhere classified, right shoulder; Z96.611 Presence of right artificial shoulder joint; Z98.890 Other specified postprocedural states | CPT/HCPCS: 99212 ==

== ENCOUNTER 2024-07-29 13:19 | Outpatient (AMB) | payer MEDICARE, SELFPAY ==
--- NOTE | 2024-07-29 13:26 | MHC.PC.OV ---
Vital Signs 07/29/24 13:29 Height 5 ft 4 in Weight 153 lb BMI 26.3 BP 120/60 Blood Pressure Location Rt brachial Position Sitting Respiration 16 Pulse 66 Pulse Source Pulse Oximeter Pulse Oximetry (%) 98 Oxygen Delivery Method Room Air Intake Visit Reasons: f/u hypertension, HLD Intake Note: f/u for labs and htn Allergies amoxicillin Allergy (Mild, Verified 07/29/24 13:28) Rash Penicillins Allergy (Mild, Verified 07/29/24 13:28) Rash tramadol Adverse Reaction (Intermediate, Verified 07/29/24 13:28) Shakiness Medication List - Last Reconciled 07/29/24 by Lucho Hairston MD aspirin (Adult Aspirin Regimen) 81 mg PO DAILY diclofenac sodium 1% (Voltaren Arthritis Pain) 2 grams topical QID 30 days ezetimibe (Zetia) 10 mg PO DAILY 90 days gabapentin 600 mg PO BID melatonin mg PO .prn metoprolol succinate ER 12.5 mg (1/2 x 25 mg) PO DAILY 90 days omeprazole 20 mg PO DAILY tamsulosin 0.4 mg PO BEDTIME 30 days zolpidem 5 mg PO BEDTIME PRN 30 days Tobacco use date assessed: 03/16/24 Dental Screening Dental Screen Date: 03/16/24 HPI f/u hypertension, HLD HPI Details 73 y/o male presents to f/u hypertension, HLD. Blood pressure today 120/60, 66p. He is on metoprolol 12.5mg. Last set of labs drawn 04/14/24. Triglycerides 119. TC 192. LDL 132. HDL low at 37. He is on zetia. No other recent labs to review. Reports ongoing shoulder pain. Had seen pain management and had done a diagnostic injection They note they plan to do a nerve stiumlator. [facility] Medical History Cervicalgia Hyperlipidemia Hypertension Bilateral shoulder pain COPD (chronic obstructive pulmonary disease) Left hand pain Trigger finger, left ring finger Coronary artery disease Chronic low back pain Surgical History History of hemiarthroplasty of right shoulder Family History Other Substance abuse Social History (Reviewed 07/28/24 @ 11:10 by ANGELICA Montiel Housing: House Alcohol intake: current Alcohol intake frequency: a few times a week Alcohol type: beer Patient Tobacco Use Status: Former Tobacco user e-Cigarette/Vaping Use: Never Used service: No Current occupational status: retired Current occupation: Left hand dominant Cognitive needs: No Hearing needs: No Vision needs: No Questionnaire PHQ-9 Over the last 2 weeks, how often have you been bothered by any of the following problems? 1. Little interest or pleasure in doing things: not at all 3. Trouble falling or staying asleep, or sleeping too much: nearly every day 4. Feeling tired or having little energy: more than half the days 5. Poor appetite or overeating: not at all 6. Feeling bad about yourself - or that you are a failure or have let yourself or your family down: not at all 7. Trouble concentrating on things, such as reading the newspaper or watching television: not at all 8. Moving or speaking so slowly that other people could have noticed. Or the opposite - being so fidgety or restless that you have been moving around a lot more than usual: not at all 9. Thoughts that you would be better off or of hurting yourself in some way: not at all Source: Developed by Drs. Emanuel Gates, Kristina Hermosillo, Jett Blankenship and colleagues, with an educational angel from [employer]. Thrive Questionnaire Date Thrive assessed: 03/16/24 I am a: Patient What is your living situation today?: I have a steady place to live Within the past 12 months, did the food you bought not last and you didn't have the money to get more?: Never true Within the past 12 months, did you worry whether your food would run out before you got money to buy more?: Never true Do you have trouble paying for medicines?: I choose not to answer this question Do you have trouble getting transportation to medical appointments?: I choose not to answer this question Do you have trouble paying your heating and electricity bill?: No Do you have trouble taking care of your child, family member or friend?: No Do you have trouble with day-to-day activities such as bathing, preparing meals, shopping, managing finances, etc.?: No Are you currently unemployed and looking for a job?: No Are you interested in more education?: No Please select the resources that you would like help with: Paying for medicine, Utilities and Care for elder or disabled Currently or been in a relationship where the following occur: No concerns reported THRIVE Score: 0 AUDIT C Alcohol Use Questionnaire (AUDIT-C) 1. How often do you have a drink containing alcohol?: 2-4 times a month 2. How many drinks containing alcohol do you have on a typical day when you are drinking?: 1 or 2 3. How often do you have six or more drinks on one occasion?: Less than monthly Total Score: 3 JORDON-7 AMB Questionnaire JORDON-7 Date JORDON - 7 assessed: 03/16/24 Feeling nervous, anxious, or on edge: 0 = Not at all Not being able to stop or control worryin = Not at all Worrying too much about different things: 0 = Not at all Trouble relaxin = Not at all Being so restless that it is hard to sit still: 0 = Not at all Becoming easily annoyed or irritable: 0 = Not at all Feeling afraid as if something awful might happen: 0 = Not at all Total JORDON-7 score (0-4 normal; 5-9 mild; 10-14 moderate; 15-21 severe): 0 Source: Developed by Drs. Emanuel Gates, Kristina Hermosillo, Jett Blankenship and colleagues, with an educational angel from [employer]. Physical exam (Primary Care) Vital Signs: Last Vital Signs Pulse 66 07/29/24 13:29 Resp 16 07/29/24 13:29 BP 120/60 07/29/24 13:29 Pulse Ox 98 07/29/24 13:29 Oxygen Delivery Method Room Air 07/29/24 13:29 BMI result Body Mass Index 26.3 Tobacco/Smoking Status: Tobacco use Status Tobacco use date assessed 03/16/24 07/29/24 13:26 Patient Tobacco Use Status Former Tobacco user 07/29/24 13:26 e-Cigarette/Vaping Use Never Used 07/29/24 13:26 Thrive Assessment: Date of Thrive Assessment Date Thrive assessed 03/16/24 07/29/24 13:26 Currently or been in a relationship where the following occur: No concerns reported Coding Level of Care Code Est Pt Level 4 (51868) Diagnoses Hypertension I10 Shoulder pain M25.519 Hyperlipidemia E78.5 Assessment & Plan Assessment & Plan (1) Hypertension: Code(s): I10 - Essential (primary) hypertension Category: Medical Plan: Blood?pressure?is?controlled?at?goal?of?less?than?130/80 Continue?medication (2) Shoulder pain: Code(s): M25.519 - Pain in unspecified shoulder Category: Medical Plan: Ongoing?right?shoulder?pain. Not?a?great?candidate?for?surgery.??He?was?referred?by?Ortho?to?pain?management. They?are?planning?nerve?stimulator Will?give?a?short?script?of?Vicodin.??Had?tried?tramadol?which?caused?feel?shaky/irritable. 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 Panel Fast Today E78.5 - Hyperlipidemia, unspecified, Z00.00 - Encounter for general adult medical examination without abnormal findings Medications: New hydrocodone-acetaminophen 5-325 mg Partial Fill upon patient request. 1 tab PO DAILY 30 days PRN 12 tabs 0RF pain
[2024-07-29 13:29] VITALS: BP 120/60; PULSE 66; RESP 16; O2SAT 98; BMI 26.3
== END 2024-07-29 14:08 | disposition home or self-care (01) ==
PROVIDERS: PCP Family Medicine; Visit Provider Family Medicine
DX: I10 Essential (primary) hypertension (principal); M25.519 Pain in unspecified shoulder; E78.5 Hyperlipidemia, unspecified

== ENCOUNTER → 2024-07-29 13:19 | Outpatient (BNVA) | payer MEDICARE, SELFPAY | PROVIDERS: PCP Family Medicine; Visit Provider Family Medicine | DX: I10 Essential (primary) hypertension (principal); E78.5 Hyperlipidemia, unspecified; M25.511 Pain in right shoulder | CPT/HCPCS: 99212 ==

== ENCOUNTER 2024-09-27 08:26 | Outpatient (REF) | payer MEDICARE, SELFPAY ==
[2024-09-27 12:18] LABS: Alanine Aminotransferase 31 U/L (0-40); Albumin Level 4.4 g/dL (3.5-5.0); Alkaline Phosphatase 48 U/L (39-117); Anion Gap 9 (12-20); Aspartate Amino Transferase 29 U/L (5-37); Bilirubin Total 0.5 mg/dL (0.0-1.0); Blood Urea Nitrogen 13 mg/dL (9-16); Carbon Dioxide 29 mmol/L (22-29); Chloride 106 mmol/L (96-108); Cholesterol 223 mg/dL (<200); Estimated Glomerular Filt Rate > 60; Glucose Fasting 92 mg/dL (60-99); HDL Cholesterol 40 mg/dL (>40); LDL Cholesterol Calculated 157 mg/dL (<100); Potassium 4.2 mmol/L (3.3-5.1); Sodium 140 mmol/L (135-145); Total Protein 7.7 g/dL (6.5-8.0); Triglycerides 130 mg/dL (<150)
== END 2024-09-27 08:27 | disposition home or self-care (01) ==
LOC: HO.WFDLDS 08:26
PROVIDERS: Visit Provider Family Medicine
DX: Z00.00 Encounter for general adult medical examination without abnormal findings (principal); E78.5 Hyperlipidemia, unspecified
CPT/HCPCS: 36415; 80053; 80061

== ENCOUNTER 2024-10-04 14:23 | Outpatient (AMB) | payer MEDICARE, SELFPAY ==
--- NOTE | 2024-10-04 14:28 | A.OFFPC_ITS ---
Vital Signs 10/04/24 14:34 Height 5 ft 4 in Weight 153 lb 2 oz BMI 26.3 BP 114/70 Blood Pressure Location Lt brachial Position Sitting Respiration 16 Pulse 99 Pulse Source Pulse Oximeter Temp 97.7 F Temp Source Oral Pulse Oximetry (%) 94 Oxygen Delivery Method Room Air Intake Visit Reasons: f/u HTN, HLD Intake Note: f/u HTN and labs Allergies amoxicillin Allergy (Mild, Verified 10/04/24 14:30) Rash Penicillins Allergy (Mild, Verified 10/04/24 14:30) Rash tramadol Adverse Reaction (Intermediate, Verified 10/04/24 14:30) Shakiness Tobacco use date assessed: 03/16/24 Dental Screening Dental Screen Date: 03/16/24 HPI f/u HTN, HLD HPI Details 74 y/o male presents to f/u hypertension and HLD. Labs drawn 09/27/24. Reviewed labs with pt. Triglycerides 130. TC 223. LDL 157. HDL 40. He is on Zetia 10mg. Hx of CAD and followed by Cardiology. Blood pressure today 114/70, 99p. He is on metoprolol 12.5mg daily. Reports ongoing shoulder pain. [facility] Medical History Cervicalgia Hyperlipidemia Hypertension Bilateral shoulder pain COPD (chronic obstructive pulmonary disease) Left hand pain Trigger finger, left ring finger Coronary artery disease Chronic low back pain Surgical History History of hemiarthroplasty of right shoulder Family History Other Substance abuse Social History Housing: House Alcohol intake: current Alcohol intake frequency: a few times a week Alcohol type: beer Patient Tobacco Use Status: Former Tobacco user e-Cigarette/Vaping Use: Never Used service: No Current occupational status: retired Current occupation: Left hand dominant Cognitive needs: No Hearing needs: No Vision needs: No Questionnaire Thrive Questionnaire Date Thrive assessed: 10/04/24 JORDON-7 AMB Questionnaire JORDON-7 Date JORDON - 7 assessed: 03/16/24 Source: Developed by Drs. Emanuel Gates, Kristina Hermosillo, Jett Blankenship and colleagues, with an educational angel from [employer]. Review of Systems Const Denies chills, Denies fatigue, Denies fever(s), Denies headache(s) and Denies weakness ENT Denies dizziness and Denies headache(s) Card Denies chest pain, Denies lightheadedness, Denies dyspnea and Denies other (Palpitations) Resp Denies cough, Denies dyspnea, Denies wheezing and Denies other ( shortness of breath) Musc Denies numbness and Denies tingling Neuro Denies dizziness, Denies headache(s), Denies numbness, Denies tingling, Denies paresthesias and Denies weakness Psych Denies anxiety and Denies depression Endo Denies fatigue Aller/Immun Denies wheezing Physical exam (Primary Care) Vital Signs: Last Vital Signs Temp 97.7 F 10/04/24 14:34 Pulse 99 10/04/24 14:34 Resp 16 10/04/24 14:34 BP 114/70 10/04/24 14:34 Pulse Ox 94 10/04/24 14:34 Oxygen Delivery Method Room Air 10/04/24 14:34 BMI result Body Mass Index 26.3 Tobacco/Smoking Status: Tobacco use Status Tobacco use date assessed 03/16/24 10/04/24 14:28 Patient Tobacco Use Status Former Tobacco user 10/04/24 14:28 e-Cigarette/Vaping Use Never Used 10/04/24 14:28 Thrive Assessment: Date of Thrive Assessment Date Thrive assessed 10/04/24 10/04/24 14:28 Const General: no acute distress and well developed Nutritional Appearance: well nourished Orientation/consciousness: patient oriented x3 HENMT Head: Yes normocephalic and Yes atraumatic Eyes General: appearance normal, both eyes and all related structures Pupils: Equal, round and reactive pupils present EOM: EOMs intact bilaterally Resp Effort & Inspection: normal respiratory effort Auscultation: clear to auscultation bilaterally Cardio Rate: regular rate Rhythm: regular rhythm Heart sounds: S1 normal heart sound present, S2 normal heart sound present, no gallops, no murmurs and no rubs Neuro General: patient oriented x3 and gait normal Cranial nerves: Yes Equal, round and reactive pupils present Psych Affect: normal affect Coding Level of Care Code Est Pt Level 4 (65834) Diagnoses Hypertension I10 Hyperlipidemia E78.5 Coronary artery disease I25.10 Bilateral shoulder pain M25.511; M25.512 Chronic low back pain M54.50; G89.29 Neoplasm of uncertain behavior of skin D48.5 Assessment & Plan Assessment & Plan (1) Hypertension: Code(s): I10 - Essential (primary) hypertension Category: Medical Plan: Blood?pressure?is?well?controlled.??Goal?is?less?than?130/80 Continue?current?medication (2) Hyperlipidemia: Code(s): E78.5 - Hyperlipidemia, unspecified Category: Medical Plan: Longstanding?history?of?hyperlipidemia?and?coronary?artery?disease. LDL?goal?is?less?than?70.??However,?patient?has?been?unable?to?tolerate?biologic s?or?statins.??He?does?tolerate?Zetia?in?continues?this. 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 (3) Coronary artery disease: Code(s): I25.10 - Atherosclerotic heart disease of [place] coronary artery without angina pectoris Category: Medical Plan: As?above,?patient?is?followed?by?Dr. Mariano Stable Follow-up?as?recommended (4) Bilateral shoulder pain: Code(s): M25.511 - Pain in right shoulder; M25.512 - Pain in left shoulder Category: Medical Plan: Bilateral?shoulder?pain. Had?tried hydrocodone-acetaminophen?and?this?was?only?minimally?helpful. 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 ?History?of?basal?cell?carcinoma. Referred?to?dermatology Orders: Referrals Dermatology Referral D48.5 - Neoplasm of uncertain behavior of skin Medications: New oxycodone-acetaminophen 5-325 mg (Percocet) [facility] Verified. Partial Fill upon patient request. 1 tab PO DAILY 30 days PRN 30 tabs 0RF pain Refilled zolpidem [facility] Verified 5 mg PO BEDTIME 30 days PRN 30 tabs 0RF sleep G47.9 - Sleep disorder, unspecified Discontinued hydrocodone-acetaminophen 5-325 mg Partial Fill upon patient request. Discontinued Reason: Doctor's Order 1 tab PO DAILY 30 days PRN 12 tabs 0RF pain
[2024-10-04 14:34] VITALS: BP 114/70; PULSE 99; RESP 16; TEMP 36.5; O2SAT 94; BMI 26.3
== END 2024-10-04 15:10 | disposition home or self-care (01) ==
PROVIDERS: PCP Family Medicine; Visit Provider Family Medicine
DX: I10 Essential (primary) hypertension (principal); E78.5 Hyperlipidemia, unspecified; I25.10 Atherosclerotic heart disease of native coronary artery without angina pectoris; M25.511 Pain in right shoulder; M25.512 Pain in left shoulder; M54.50 Low back pain, unspecified; G89.29 Other chronic pain; D48.5 Neoplasm of uncertain behavior of skin

== ENCOUNTER → 2024-10-04 14:23 | Outpatient (BNVA) | payer MEDICARE, SELFPAY | PROVIDERS: PCP Family Medicine; Visit Provider Family Medicine | DX: M25.551 Pain in right hip (principal); M25.512 Pain in left shoulder; M54.50 Low back pain, unspecified; D48.5 Neoplasm of uncertain behavior of skin; G89.29 Other chronic pain | CPT/HCPCS: 99212 ==

== ENCOUNTER 2024-11-24 06:05 | Outpatient (REF) | payer MEDICARE, SELFPAY | END 2024-11-24 06:06 | disposition home or self-care (01) | LOC: CF 06:05 | PROVIDERS: Visit Provider Internal Medicine | DX: M75.101 Unspecified rotator cuff tear or rupture of right shoulder, not specified as traumatic (principal); M12.811 Other specific arthropathies, not elsewhere classified, right shoulder; M25.511 Pain in right shoulder; M25.512 Pain in left shoulder; Z96.611 Presence of right artificial shoulder joint | CPT/HCPCS: 64555; C1778; J2003 ==

== ENCOUNTER 2024-11-24 08:59 | Outpatient (AMB) | payer MEDICARE, SELFPAY ==
[2024-11-24 09:06] VITALS: BP 147/76; PULSE 69; RESP 16; O2SAT 98
--- NOTE | 2024-11-24 09:06 | A.OFFVIS_ITS ---
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 Sales Consultant Required: No Allergies amoxicillin Allergy (Mild, Verified 12/01/24 09:11) Rash Penicillins Allergy (Mild, Verified 12/01/24 09:11) Rash tramadol Adverse Reaction (Intermediate, Verified 12/01/24 09:11) Shakiness Medication List - Last Reconciled 11/24/24 by Lakesha Abarca LPN aspirin (Adult Aspirin Regimen) 81 mg PO DAILY clindamycin HCl 600 mg (2 x 300 mg) PO ONCE PRN 1 day diclofenac sodium 1% (Voltaren Arthritis Pain) 2 grams topical QID 30 days ezetimibe (Zetia) 10 mg PO DAILY 90 days gabapentin 600 mg PO BID 90 days melatonin mg PO .prn metoprolol succinate ER 12.5 mg (1/2 x 25 mg) PO DAILY 90 days omeprazole 20 mg PO DAILY oxycodone-acetaminophen 5-325 mg (Percocet) 1 tab PO DAILY PRN 30 days tamsulosin 0.4 mg PO BEDTIME 90 days zolpidem 5 mg PO BEDTIME PRN 30 days HPI HPI Right suprascapular Sprint: Details: Patient presents for scheduled procedure. Denies any recent cough, cold, infection, fever or other significant changes in medical history since last office visit. [facility] Medical History Cervicalgia Hyperlipidemia Hypertension Bilateral shoulder pain COPD (chronic obstructive pulmonary disease) Left hand pain Trigger finger, left ring finger Coronary artery disease Chronic low back pain Surgical History History of hemiarthroplasty of right shoulder Family History Other Substance abuse Social History Housing: House Alcohol intake: current Alcohol intake frequency: a few times a week Alcohol type: beer Patient Tobacco Use Status: Former Tobacco user e-Cigarette/Vaping Use: Never Used service: No Current occupational status: retired Current occupation: Left hand dominant Cognitive needs: No Hearing needs: No Vision needs: No Physical Exam Vital Signs: Last Vital Signs Pulse 73 11/24/24 09:49 Resp 16 11/24/24 09:49 BP 159/93 H 11/24/24 09:49 Pulse Ox 96 11/24/24 09:49 Oxygen Delivery Method Room Air 11/24/24 09:49 Office Procedures Details: Peripheral Nerve Stimulation Temporary Lead Placement, Fluoroscopy-Guided, Suprascapular Nerve, Right ? After the risks, benefits and alternatives were discussed with the patient and informed consent was obtained, patient was placed in the sitting position and padded to foster comfort. Appropriate skin and bony landmarks were identified using ultrasound, including the left suprascapular notch. The skin overlying the needle entry site was prepped and draped in sterile fashion. After identifying and marking the intended target along the course of the suprascapular nerve, the skin around the planned entry point and the subcutaneous tissues were injected with local anesthetic. An introducer needle and stimulating probe were assembled, inserted and advanced along the intended course of the right suprascapular nerve, taking care to maintain the proper depth of insertion as the introducer was advanced under ultrasound guidance. Bony contact was achieved with the scapula and maintained throughout. The introducer needle was delivered to a location in proximity to the nerve. Multiple stimulation parameters were used to deliver stimulation to the suprascapular nerve in concert with stimulating at multiple positions around the nerve. Nerve target acquisition was confirmed noting generation of sensory and mild motor effects (paresthesia, muscle tension, etc) in the shoulder and proximal arm; corresponding to the distribution of the suprascapular nerve. Various electrical parameter combinations were tested, and the lead location was adjusted (physically relocated under image guidance) until the patient indicated shoulder paresthesia and tension overlapping the distribution of the patient?s typical region of pain. The stimulating probe was removed from the introducer and a percutaneous lead was guided through the needle and delivered to a location in similar proximity to the nerve. Final location was verified with electrical stimulation and documented. The introducer needle was removed, and the exposed end of the percutaneous lead was attached to an external stimulator unit. Various electrical parameter combinations were again tested until the patient indicated paresthesia and muscle tension overlapping the distribution of the patient?s typical region of pain. After confirming that lead impedance was in the normal range, the external unit was detached, the needle was removed, and the lead was anchored at the skin. The needle entry site was occluded with dermabond. The lead was threaded into the connector block and electrical continuity and desired patient response was confirmed. The connector block was attached to the external stimulator unit. The site was covered with a sterile occlusive dressing.? A final image was taken to document final placement. The patient was observed for stability of vital signs and comfort. 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 Patient tolerated procedure well and was discharged home in stable condition with discharge instructions. All questions were answered. We will follow-up via telephone or in clinic to assess response to therapy. A follow-up appointment was made during today's visit. Orders: Orders FL guidance in treatment room 11/24/24 Malinda Hyde APRN, [employer] M25.519 - Pain in unspecified shoulder AMB Sprint PNS 11/24/24 Shaka Beltrán MD Z96.611 - Presence of right artificial shoulder joint, M75.101 - Unspecified rotator cuff tear or rupture of right shoulder, not specified as traumatic, M12.811 - Other specific arthropathies, not elsewhere classified, right shoulder Coding Level of Care Code Procedure Only Diagnoses Bilateral shoulder pain M25.511; M25.512 CPT Codes Sprint PNS - Sprint PNS Device: Sprint PNS Device ([id number]) Sprint PNS - SPRINT: 36815 - Percutaneous Peripheral Neuroelectrode ([id number]) Implantable Device Implantable Device Implantable Devices Qty Groundskeeping Maintenance Worker Implant Date Expiration Date Analgesic PENS system 1 [facility] [employer] 11/24/24 04/05/25
[2024-11-24 09:49] VITALS: BP 159/93; PULSE 73; RESP 16; O2SAT 96
== END 2024-11-24 10:04 | disposition home or self-care (01) ==
LOC: HO.PMCPRC 08:59
PROVIDERS: PCP Family Medicine; Visit Provider Internal Medicine
DX: M75.101 Unspecified rotator cuff tear or rupture of right shoulder, not specified as traumatic (principal); M12.811 Other specific arthropathies, not elsewhere classified, right shoulder; Z96.611 Presence of right artificial shoulder joint
CPT/HCPCS: 64555

== ENCOUNTER 2024-12-01 08:55 | Outpatient (AMB) | payer OTHER, SELFPAY ==
--- NOTE | 2024-12-01 09:06 | A.OFFVIS_ITS ---
Vital Signs 12/01/24 09:09 Height 5 ft 4 in Weight 150 lb BMI 25.7 BP 171/79 H Blood Pressure Location Rt brachial Position Sitting Pulse 66 Pulse Source Pulse Oximeter Pulse Oximetry (%) 97 Oxygen Delivery Method Room Air Intake Visit Reasons: s/p right suprascapular Sprint Intake Note: Pain today 11/14 Steep Tender Required: No Accompanied by: Spouse Allergies amoxicillin Allergy (Mild, Verified 12/01/24 09:11) Rash Penicillins Allergy (Mild, Verified 12/01/24 09:11) Rash tramadol Adverse Reaction (Intermediate, Verified 12/01/24 09:11) Shakiness HPI Comments Details: The patient is a 74-year-old male presenting for postoperative management of the right suprascapular nerve stimulator. He reported that the device, implanted on 11/24/[address] Beltrán to address right shoulder pain, has significantly reduced his discomfort. The patient can lift his arm with significantly less pain than previously, although some mild residual discomfort persists. The set stimulation level of 50 is comfortable; during this visit, it was increased to 55 with no negative effects noted. The patient also experiences left shoulder pain, which has intensified post-stimulator placement on the right and would like an assessment or similar treatment for this issue. Patient plans to change dressings independently unless complications or concerns arise. Patient's and patient were educated on Sprint device care and dressing changes. Denies any recent cough, cold, infection, fever or other significant changes in medical history since last office visit. The dressing was removed today. Lead insertion site look clean, dry, intact, no redness, no swelling, no pathological discharge. Area was cleansed with Chloraprep, applied Bacitracin and covered with Sprint Tegaderm film and gauze dressing. Past Procedures: 11/24/24: Right suprascapular Sprint--70% ongoing pain relief 07/21/24: Right suprascapular nerve block- % pain relief for hours PRIOR: Patient is a pleasant 73-year-old gentleman with a 10 year history of right shoulder replacement at [place] and persistent mild dysfunctional right rotator cuff, cervical fusion with rods in place at C5-C6, cervical degenerative disc disease, left shoulder pain, presents today for initial evaluation of right shoulder pain worse night. He reports work related injury in 2003 due to heavy lifting which injured his neck and shoulder. 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 Patient was referred to us by Dr. Olivas, [facility] as he does not indicate a large revision shoulder arthroplasty surgery. Patient reports he was offered reversal shoulder surgery at [facility] but is hesitant to undergo any additional surgery. Right shoulder pain has been localized to lateral and anterior aspects with mild tenderness. Pain is worse at night and during the day with activities and movements. Reports disrupted sleep due to constant need to reposition. He also has left shoulder pain due to OA. Reports remote history of therapeutic injections with mixed results. Neck pain is worse with extension and limited on the left, associated with increased pain in shou lders and muscle stiffness. Patient reports oral and topical medications provide temporary relief and allow slightly improved functioning. Chronic shoulder pain has been resistant to conservative treatments. Patient also reports significant low back pain, worse with lumbar extension and axial rotations and relieved by bending forward. Denies any fever or chills, unintentional weight loss, dizzine ss, shortness of breath, chest pain, weakness, paresthesias, bladder or bowel dysfunction or saddle anesthesia. Location: Bilateral shoulder pain, right>left, neck, low back pain into LLE Duration: Chronic pain since 2003 due to heavy work Characteristics of symptom or complaint: Throbbing, tiring, radiating, dull, sore, hurting, heavy Aggravating or associated factors: Sleeping on sides, movements, pulling, lifting Relieving factors: Changing positions, tramadol, gabapentin, modifying activities Treatment: Injections, PT, Chiropractic, massage, acupuncture, TENS, home traction [facility] Medical History Cervicalgia Hyperlipidemia Hypertension Bilateral shoulder pain COPD (chronic obstructive pulmonary disease) Left hand pain Trigger finger, left ring finger Coronary artery disease Chronic low back pain Surgical History History of hemiarthroplasty of right shoulder Family History Other Substance abuse Social History Housing: House Alcohol intake: current Alcohol intake frequency: a few times a week Alcohol type: beer Patient Tobacco Use Status: Former Tobacco user e-Cigarette/Vaping Use: Never Used service: No Current occupational status: retired Current occupation: Left hand dominant Cognitive needs: No Hearing needs: No Vision needs: No Review of Systems Const Details: - Musculoskeletal: Reports significant pain reduction in the right shoulder; reports persistent pain in the left shoulder. - Integumentary: Denies signs of infection or irritation at the stimulator site. All systems reviewed & are unremarkable except as noted in HPI and below Physical Exam Vital Signs: Last Vital Signs Pulse 66 12/01/24 09:09 BP 171/79 H 12/01/24 09:09 Pulse Ox 97 12/01/24 09:09 Oxygen Delivery Method Room Air 12/01/24 09:09 BMI result Body Mass Index 25.7 General: Appears afebrile. Alert and oriented. Mood and affect appropriate. Follows and participates in conversation appropriately. Respiratory effort is unlabored. No cough. Able to transition from sit to stand unassisted. Ambulates with bilaterally normal heel strike and toe off. Lead Insertion Site: Lead insertion site looks clean, dry, intact. No pathological discharge, no swelling and no erythema. Lead site dressing were changed today in the clinic. Positive paresthesia at 50 on the right. Extrem General: Yes capillary refill normal, Yes no clubbing, cyanosis or edema and Yes no calf tenderness Right upper extremity: shoulder/upper arm (Limited ROM, mild pain with overhead reaches.) Details: normal to inspection and tenderness Location: over the s ubacromial bursa; no swelling, no ecchymosis, no crepitus and no unusual warmth Left upper extremity: shoulder/upper arm (Limited ROM with internal/external rotations.) Details: inspection abnormal, tenderness Location: of the A-C joint and over the subacromial bursa and crepitus; no swelling, no ecchymosis and no unsual warmth Results Reviewed Results Reviewed: XR SHOULDER, RIGHT 12/24/23 FINDINGS: Bony alignment and mineralization are normal. There is an intact right shoulder arthroplasty, without hardware failure, loosening or periprosthetic fracture. The arthroplasty is well seated within the glenoid. The acromioclavicular and coracoclavicular intervals are normal. No soft tissue calcifications or foreign body seen. There is no right pneumothorax. IMPRESSION: An intact right shoulder arthroplasty is seen, without hardware failure, loosening or periprosthetic fracture. Assessment & Plan Assessment & Plan (1) Left shoulder pain: Code(s): M25.512 - Pain in left shoulder Category: Medical (2) Bilateral shoulder pain: Code(s): M25.511 - Pain in right shoulder; M25.512 - Pain in left shoulder Category: Medical (3) Rotator cuff tear arthropathy of right shoulder: Code(s): M75.101 - Unspecified rotator cuff tear or rupture of right shoulder, not specified as traumatic; M12.811 - Other specific arthropathies, not elsewhere classified, right shoulder Category: Medical (4) History of hemiarthroplasty of right shoulder: Code(s): Z96.611 - Presence of right artificial shoulder joint Category: Surgical Plan Patient is one week s/p right suprascapular nerve Sprint PNS placement with improvement in ADLs, sleep and social activities. For the management of the right suprascapular nerve stimulator post-procedure, I instructed the patient and his on home dressing changes and maintaining careful hygiene to prevent infection, providing additional skin adhesive options to aid adherence. Adjustments to the stimulus level should be maintained between 50-55 for comfort. The patient is to be scheduled for a left suprascapular nerve block evaluation for his unrelieved left shoulder pain, and we will consider a similar intervention if needed. Schedule left suprascapular diagnostic nerve block with local and US guidance for chronic left shoulder pain for potential Sprint trial. Expectations, risks and benefits were reviewed. Patient is aware he will be contacted to schedule this procedure. All questions were answered and the patient is in agreement of plan. Follow-up after injection and sooner as needed. Patient was informed and verbally consented to the use of an ambient scribe for clinic note documentation during this visit. Orders: Orders XR shoulder LT min 2V Today M25.512 - Pain in left shoulder Patient Instructions: During our discussion, I explained the proper techniques for dressing changes for the right suprascapular nerve stimulator to avoid skin irritation and potential infection. We reviewed the stimulator settings and agreed that the current level at 50-55 is appropriate. We discussed the patient's left shoulder pain, for which I advised evaluation for a possible nerve block intervention as a potential next step and xray to assess degree of arthritis. I outlined the procedure's risks, such as temporary soreness or limited efficacy, and the patient agreed to proceed. Follow-ups for both shoulders were planned according to his comfort and needs. - Change dressings for the right shoulder stimulator at home following the detailed method demonstrated once a week and as needed. - Maintain stimulator setting at 50-55, adjusting based on comfort. - Monitor the insertion site for signs of infection, such as redness or discharge. - Complete left shoulder x-ray to assess degree of arthritis. - Schedule an evaluation for a left suprascapular nerve block for ongoing left shoulder pain. - Return to clinic sooner if unable to manage dressing changes, or if there are any concerns with the stimulator. Coding Level of Care Code Est Pt Level 4 (79208) Complex EM visit Add On G2211 Diagnoses Left shoulder pain M25.512 Bilateral shoulder pain M25.511; M25.512 Rotator cuff tear arthropathy of right shoulder M75.101; M12.811 History of hemiarthroplasty of right shoulder Z96.611
[2024-12-01 09:09] VITALS: BP 171/79; PULSE 66; O2SAT 97; BMI 25.7
== END 2024-12-01 09:31 | disposition home or self-care (01) ==
PROVIDERS: PCP Family Medicine; Visit Provider Nurse Practitioner Family
DX: M25.512 Pain in left shoulder (principal); M25.511 Pain in right shoulder; M75.101 Unspecified rotator cuff tear or rupture of right shoulder, not specified as traumatic; M12.811 Other specific arthropathies, not elsewhere classified, right shoulder; Z96.611 Presence of right artificial shoulder joint
CPT/HCPCS: 99024

== ENCOUNTER → 2024-12-01 08:55 | Outpatient (BNVA) | payer MEDICARE, SELFPAY | PROVIDERS: PCP Family Medicine; Visit Provider Nurse Practitioner Family | DX: M19.012 Primary osteoarthritis, left shoulder (principal); M75.101 Unspecified rotator cuff tear or rupture of right shoulder, not specified as traumatic; M12.811 Other specific arthropathies, not elsewhere classified, right shoulder; Z96.611 Presence of right artificial shoulder joint | CPT/HCPCS: 99212 ==

== ENCOUNTER 2024-12-22 06:08 | Outpatient (REF) | payer OTHER, SELFPAY | END 2024-12-22 06:09 | disposition home or self-care (01) | LOC: CF 06:08 | PROVIDERS: Visit Provider Internal Medicine | DX: M25.512 Pain in left shoulder (principal) | CPT/HCPCS: 64418; J2795 ==

== ENCOUNTER 2024-12-22 10:19 | Outpatient (AMB) | payer OTHER, SELFPAY ==
[2024-12-22 10:24] VITALS: BP 138/84; PULSE 73; RESP 16; O2SAT 97
--- NOTE | 2024-12-22 10:24 | A.OFFVIS_ITS ---
Vital Signs 12/22/24 10:24 12/22/24 10:40 BP 138/84 146/79 H Blood Pressure Location Lt brachial Lt brachial Position Sitting Sitting Respiration 16 16 Pulse 73 72 Pulse Source Pulse Oximeter Pulse Oximeter Pulse Oximetry (%) 97 97 Oxygen Delivery Method Room Air Room Air Intake Visit Reasons: Left Dx suprascapular NB Senior Research Consultant Required: No Allergies amoxicillin Allergy (Mild, Verified 12/22/24 10:24) Rash Penicillins Allergy (Mild, Verified 12/22/24 10:24) Rash tramadol Adverse Reaction (Intermediate, Verified 12/22/24 10:24) Shakiness Medication List - Last Reconciled 12/22/24 by Lakesha Abarca LPN aspirin (Adult Aspirin Regimen) 81 mg PO DAILY clindamycin HCl 600 mg (2 x 300 mg) PO ONCE PRN 1 day diclofenac sodium 1% (Voltaren Arthritis Pain) 2 grams topical QID 30 days ezetimibe (Zetia) 10 mg PO DAILY 90 days gabapentin 600 mg PO BID 90 days melatonin mg PO .prn metoprolol succinate ER 12.5 mg (1/2 x 25 mg) PO DAILY 90 days omeprazole 20 mg PO DAILY oxycodone-acetaminophen 5-325 mg (Percocet) 1 tab PO DAILY PRN 30 days tamsulosin 0.4 mg PO BEDTIME 90 days zolpidem 5 mg PO BEDTIME PRN 30 days HPI HPI Left Dx suprascapular NB: Details: Patient presents for scheduled procedure. Denies any recent cough, cold, infection, fever or other significant changes in medical history since last office visit. [facility] Medical History Cervicalgia Hyperlipidemia Hypertension Bilateral shoulder pain COPD (chronic obstructive pulmonary disease) Left hand pain Trigger finger, left ring finger Coronary artery disease Chronic low back pain Surgical History History of hemiarthroplasty of right shoulder Family History Other Substance abuse Social History Housing: House Alcohol intake: current Alcohol intake frequency: a few times a week Alcohol type: beer Patient Tobacco Use Status: Former Tobacco user e-Cigarette/Vaping Use: Never Used service: No Current occupational status: retired Current occupation: Left hand dominant Cognitive needs: No Hearing needs: No Vision needs: No Physical Exam Vital Signs: Last Vital Signs Pulse 73 12/22/24 10:24 Resp 16 12/22/24 10:24 BP 138/84 12/22/24 10:24 Pulse Ox 97 12/22/24 10:24 Oxygen Delivery Method Room Air 12/22/24 10:24 Office Procedures Nerve Block Details: Diagnostic suprascapular nerve block, left After obtaining written consent, pre-procedure blood pressure and heart rate were stable and recorded in the nursing record. The patient was placed in a sitting position. The area overlying the peripheral nerve was widely prepped with chloraprep, allowed to dry and sterilely draped. Using ultrasound, the appropriate landmarks were identified. A 21 gauge echogenic 100 mm needle was advanced under ultrasound guidance to the suprascapular notch, until bony contact was obtained. Aspiration was negative for heme and synovial fluid. 3 cc of ropivacaine 0.5% was injected around each targeted nerve. The needles were removed, skin cleansed and a sterile bandage was applied. The patient tolerated the procedure well and no complications were encountered. Following the procedure the patient's vital signs were stable. The patient was discharged home in good condition with post-procedural instructions. Time Out: Immediately prior to the procedure, the following was verbally confirmed that there is a signed consent form and that the correct patient, planned procedure, site and side are consistent with documentation and that necessary equipment and/or blood products are available prior to the start of the case. Complications: none EBL: <5 cc 13377 - Suprascapular Procedure code (CPT) selection complete Assessment & Plan Assessment & Plan (1) Left shoulder pain: Code(s): M25.512 - Pain in left shoulder Category: Medical Plan Patient is status post diagnostic left suprascapular nerve block. Patient tolerated procedure well and was discharged home in stable condition with discharge instructions. All questions were answered. We will follow-up via telephone or in clinic to assess response to therapy. A follow-up appointment was made during today's visit. Orders: Orders US guide needle placement Today M25.512 - Pain in left shoulder Coding Level of Care Code Procedure Only Diagnoses Left shoulder pain M25.512 CPT Codes Nerve Block - Nerve Block 4: 27111 - Suprascapular ([id number])
[2024-12-22 10:40] VITALS: BP 146/79; PULSE 72; RESP 16; O2SAT 97
== END 2024-12-22 10:40 | disposition home or self-care (01) ==
LOC: HO.PMCPRC 10:19
PROVIDERS: PCP Family Medicine; Visit Provider Internal Medicine
DX: M25.512 Pain in left shoulder (principal)
CPT/HCPCS: 64418; 76942

== ENCOUNTER 2024-12-29 14:29 | Outpatient (AMB) | payer OTHER, SELFPAY ==
--- NOTE | 2024-12-29 14:35 | A.OFFVIS_ITS ---
Vital Signs 12/29/24 14:39 Height 5 ft 4 in Weight 150 lb BMI 25.7 BP 130/72 Blood Pressure Location Lt brachial Position Sitting Pulse 81 Pulse Source Pulse Oximeter Pulse Oximetry (%) 99 Oxygen Delivery Method Room Air Intake Visit Reasons: s/p Left Dx suprascapular NB Intake Note: Pain today 8/10 Orthopedically Impaired Teacher Required: No Accompanied by: Self / Same As Patient Allergies amoxicillin Allergy (Mild, Verified 12/29/24 14:40) Rash Penicillins Allergy (Mild, Verified 12/29/24 14:40) Rash tramadol Adverse Reaction (Intermediate, Verified 12/29/24 14:40) Shakiness HPI Comments Details: The patient presents for follow up to assess response to recent left diagnostic suprascapular nerve block on 12/22/[address] Beltrán. He reports 90% pain relief for up to 2 days post procedure with significant improvement in his daily functioning, ROM and sleep. Following the initial improvement, the pain escalated back to an 8/10 severity. Similarly, the right shoulder has been involved but to a lesser degree, causing a pain level reported at 3-4/10 while on current Sprint PNS therapy. Given positive response with recent diagnostic nerve block, patient is interested to proceed with Sprint PNS trial for chronic left shoulder pain. His current right shoulder Sprint device stimulation level of 35-40 is comfortable. Patient's has been performing dressing changes at home, patient denies any concerns for device care. Denies any recent cough, cold, infection, fever or other significant changes in medical history since last office visit. The dressing was removed today. Right lead insertion site look clean, dry, intact, no swelling, no pathological discharge except mild redness noted at the lead insertion site. Area was cleansed with Chloraprep, applied Bacitracin and covered with Sprint Tegaderm film and gauze dressing. Past Procedures: 12/22/24: Left suprascapular nerve block-90% pain relief for 2 days 11/24/24: Right suprascapular Sprint--70% ongoing pain relief 07/21/24: Right suprascapular nerve block- 50-60% pain relief for 6 hours PRIOR: Patient is a pleasant 73-year-old gentleman with a 10 year history of right shoulder replacement at [place] and persistent mild dysfunctional right rotator cuff, cervical fusion with rods in place at C5-C6, cervical degenerative disc disease, left shoulder pain, presents today for initial evaluation of right shoulder pain worse night. He reports work related injury in 2003 due to heavy lifting which injured his neck and shoulder. 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 Patient was referred to us by Dr. Olivas, [facility] as he does not indicate a large revision shoulder arthroplasty surgery. Patient reports he was offered reversal shoulder surgery at [facility] but is hesitant to undergo any additional surgery. Right shoulder pain has been localized to lateral and anterior aspects with mild tenderness. Pain is worse at night and during the day with activities and movements. Reports disrupted sleep due to constant need to reposition. He also has left shoulder pain due to OA. Reports remote history of therapeutic injections with mixed results. Neck pain is worse with extension and limited on the left, associated with increased pain in shoulders and muscle stiffness. Patient reports oral and topical medications provide temporary relief and allow slightly improved functioning. Chronic shoulder pain has been resistant to conservative treatments. Patient also reports significant low back pain, worse with lumbar extension and axial rotations and relieved by bending forward. Denies any fever or chills, unintentional weight loss, dizziness, shortness of breath, chest pain, weakness, paresthesias, bladder or bowel dysfunction or saddle anesthesia. Location: Bilateral shoulder pain, right>left, neck, low back pain into LLE Duration: Chronic pain since 2003 due to heavy work Characteristics of symptom or complaint: Throbbing, tiring, radiating, dull, sore, hurting, heavy Aggravating or associated factors: Sleeping on sides, movements, pulling, lifting Relieving factors: Changing positions, tramadol, gabapentin, modifying activities Treatment: Injections, PT, Chiropractic, massage, acupuncture, TENS, home traction [facility] Medical History Cervicalgia Hyperlipidemia Hypertension Bilateral shoulder pain COPD (chronic obstructive pulmonary disease) Left hand pain Trigger finger, left ring finger Coronary artery disease Chronic low back pain Surgical History History of hemiarthroplasty of right shoulder Family History Other Substance abuse Social History Housing: House Alcohol intake: current Alcohol intake frequency: a few times a week Alcohol type: beer Patient Tobacco Use Status: Former Tobacco user e-Cigarette/Vaping Use: Never Used service: No Current occupational status: retired Current occupation: Left hand dominant Cognitive needs: No Hearing needs: No Vision needs: No Review of Systems Const All systems reviewed & are unremarkable except as noted in HPI and below Physical Exam Vital Signs: Last Vital Signs Pulse 81 12/29/24 14:39 BP 130/72 12/29/24 14:39 Pulse Ox 99 12/29/24 14:39 Oxygen Delivery Method Room Air 12/29/24 14:39 BMI result Body Mass Index 25.7 General: Appears afebrile. Alert and oriented. Mood and affect appropriate. Follows and participates in conversation appropriately. Respiratory effort is unlabored. No cough. Able to transition from sit to stand unassisted. Ambulates with bilaterally normal heel strike and toe off. Lead Insertion Site: Right shoulder Lead insertion site looks clean, dry, intact. No pathological discharge, no swelling and no erythema. Mild redness noted at lead insertion site. Lead site dressing was changed today in the clinic. Positive paresthesia at 35- 40 on the right. Results Reviewed Results Reviewed: XR SHOULDER, RIGHT 12/24/23 FINDINGS: Bony alignment and mineralization are normal. There is an intact right shoulder arthroplasty, without hardware failure, loosening or periprosthetic fracture. The arthroplasty is well seated within the glenoid. The acromioclavicular and coracoclavicular intervals are normal. No soft tissue calcifications or foreign body seen. There is no right pneumothorax. IMPRESSION: An intact right shoulder arthroplasty is seen, without hardware failure, loosening or periprosthetic fracture. Assessment & Plan Assessment & Plan (1) Rotator cuff tear arthropathy of right shoulder: Code(s): M75.101 - Unspecified rotator cuff tear or rupture of right shoulder, not specified as traumatic; M12.811 - Other specific arthropathies, not elsewhere classified, right shoulder Category: Medical (2) History of hemiarthroplasty of right shoulder: Code(s): Z96.611 - Presence of right artificial shoulder joint Category: Surgical (3) Left shoulder pain: Code(s): M25.512 - Pain in left shoulder Category: Medical (4) Right shoulder pain: Code(s): M25.511 - Pain in right shoulder Category: Medical Plan Patient is one week s/p left suprascapular nerve diagnostic injection with 90% pain relief for 2 days post injection with improvement in ADLs, sleep and social activities. Schedule left suprascapular temporary PNS therapy with local and fluoroscopy guidance for chronic left shoulder pain. Expectations, risks and benefits were reviewed. Patient is aware he will be contacted to schedule this procedure. For the management of the right suprascapular nerve stimulator therapy, dressing change was done today in the office. Patient will continue with dressing changes at home with his 's support. Reviewed home dressing changes with patient, including maintaining careful hygiene to prevent infection. Patient will contin ue to adjust Sprint device stimulation settings for comfort and pain reduction as needed. All questions were answered and the patient is in agreement of plan. Follow-up after right sided Sprint PNS placement and sooner as needed. Patient was informed and verbally consented to the use of an ambient scribe for clinic note documentation during this visit. Coding Level of Care Code Est Pt Level 4 (86531) Complex EM visit Add On G2211 Diagnoses Rotator cuff tear arthropathy of right shoulder M75.101; M12.811 History of hemiarthroplasty of right shoulder Z96.611 Left shoulder pain M25.512 Right shoulder pain M25.511
[2024-12-29 14:39] VITALS: BP 130/72; PULSE 81; O2SAT 99; BMI 25.7
== END 2024-12-29 15:02 | disposition home or self-care (01) ==
PROVIDERS: PCP Family Medicine; Visit Provider Nurse Practitioner Family
DX: M75.101 Unspecified rotator cuff tear or rupture of right shoulder, not specified as traumatic (principal); M12.811 Other specific arthropathies, not elsewhere classified, right shoulder; Z96.611 Presence of right artificial shoulder joint; M25.512 Pain in left shoulder; M25.511 Pain in right shoulder
CPT/HCPCS: 99214

== ENCOUNTER 2025-01-06 14:23 | Outpatient (AMB) | payer MEDICARE, SELFPAY ==
--- NOTE | 2025-01-06 14:34 | MHC.PC.OV ---
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: No Allergies amoxicillin Allergy (Mild, Verified 01/06/25 14:35) Rash Penicillins Allergy (Mild, Verified 01/06/25 14:35) Rash tramadol Adverse Reaction (Intermediate, Verified 01/06/25 14:35) Shakiness Medication List - Last Reconciled 01/06/25 by Lucho Hairston MD aspirin (Adult Aspirin Regimen) 81 mg PO DAILY ezetimibe (Zetia) 10 mg PO DAILY 90 days gabapentin 600 mg PO BID 90 days melatonin mg PO .prn metoprolol succinate ER 12.5 mg (1/2 x 25 mg) PO DAILY 90 days omeprazole 20 mg PO DAILY oxycodone-acetaminophen 5-325 mg (Percocet) 1 tab PO DAILY PRN 30 days tamsulosin 0.4 mg PO BEDTIME 90 days zolpidem 5 mg PO BEDTIME PRN 30 days Tobacco use date assessed: 03/16/24 Dental Screening Dental Screen Date: 03/16/24 HPI f/u HTN HPI Details 74 y/o male presents to f/u HTN. BP today 128/60, 72p. He is on metoprolol 12.5mg daily. [facility] Medical History Cervicalgia Hyperlipidemia Hypertension Bilateral shoulder pain COPD (chronic obstructive pulmonary disease) Left hand pain Trigger finger, left ring finger Coronary artery disease Chronic low back pain Surgical History History of hemiarthroplasty of right shoulder Family History Other Substance abuse Social History Housing: House Alcohol intake: current Alcohol intake frequency: a few times a week Alcohol type: beer Patient Tobacco Use Status: Former Tobacco user e-Cigarette/Vaping Use: Never Used service: No Current occupational status: retired Current occupation: Left hand dominant Cognitive needs: No Hearing needs: No Vision needs: No Questionnaire Thrive Questionnaire Date Thrive assessed: 10/04/24 JORDON-7 AMB Questionnaire JORDON-7 Date JORDON - 7 assessed: 03/16/24 Source: Developed by Drs. Emanuel Gates, Kristina Hermosillo, Jett Blankenship and colleagues, with an educational angel from [employer]. Review of Systems Const Denies chills, Denies fatigue, Denies fever(s), Denies headache(s) and Denies weakness ENT Denies dizziness and Denies headache(s) Card Denies dyspnea Resp Denies cough, Denies dyspnea, Denies wheezing and Denies other (shortness of breath) Musc Denies numbness and Denies tingling Neuro Denies dizziness, Denies headache(s), Denies numbness, Denies tingling and Denies weakness Psych Denies anxiety and Denies depression Endo Denies fatigue Aller/Immun Denies wheezing Physical exam (Primary Care) Vital Signs: Last Vital Signs Temp 97.9 F 01/06/25 14:37 Pulse 72 01/06/25 14:37 Resp 14 01/06/25 14:37 BP 128/60 01/06/25 14:37 Pulse Ox 96 01/06/25 14:37 Oxygen Delivery Method Room Air 01/06/25 14:37 BMI result Body Mass Index 26.6 Tobacco/Smoking Status: Tobacco use Status Tobacco use date assessed 03/16/24 01/06/25 14:40 Patient Tobacco Use Status Former Tobacco user 01/06/25 14:40 e-Cigarette/Vaping Use Never Used 01/06/25 14:40 Thrive Assessment: Date of Thrive Assessment Date Thrive assessed 10/04/24 01/06/25 14:40 Const General: well developed; No acute distress Nutritional Appearance: well nourished Orientation/consciousness: patient oriented x3 HENMT Head: Yes normocephalic and Yes atraumatic Eyes General: appearance normal, both eyes and all related structures Pupils: Equal, round and reactive pupils present EOM: EOMs intact bilaterally Resp Effort & Inspection: normal respiratory effort Neuro General: patient oriented x3 and gait normal Cranial nerves: Yes Equal, round and reactive pupils present Psych Affect: normal affect Coding Level of Care Code Est Pt Level 4 (42417) Diagnoses Hypertension I10 Bilateral shoulder pain M25.511; M25.512 Insomnia G47.00 Assessment & Plan Assessment & Plan (1) Hypertension: Code(s): I10 - Essential (primary) hypertension Category: Medical Plan: Blood?pressure?is?controlled.??Goal?is?less?than 130/80 Continue?current?medication (2) Bilateral shoulder pain: Code(s): M25.511 - Pain in right shoulder; M25.512 - Pain in left shoulder Category: Medical Plan: Now?s/p?right?peripheral?nerve?stimulator?with?fair?response. Followed?by?pain?management?in?plans?left?PNS Continue Percocet?for?severe?pain Risks/benefits?reviewed?and?he?has?a?pain?contract?signed (3) Insomnia: Code(s): G47.00 - Insomnia, unspecified Category: Medical Plan: Zolpidem?as?needed Reviewed?with?patient?that?he?should?not?take?zolpidem?pain?medication at?the?same?time. Patient?takes?Percocet?during?the?day. Orders: Orders Prostate Specific Antigen Scr Today Z12.5 - Encounter for screening for malignant neoplasm of prostate Microalbumin, Random (w Creat) Today I10 - Essential (primary) hypertension UA CC w/rflx Micro + Cult Today Z00.00 - Encounter for general adult medical examination without abnormal findings Comprehensive [place]. Panel Fast Today Z00.00 - Encounter for general adult medical examination without abnormal findings Complete Blood Count Auto Diff Today Z00.00 - Encounter for general adult medical examination without abnormal findings Lipid Panel Today Z00.00 - Encounter for general adult medical examination without abnormal findings TSH reflex Free T4 Today Z00.00 - Encounter for general adult medical examination without abnormal findings Medications: Refilled oxycodone-acetaminophen 5-325 mg (Percocet) MassPat Verified. Partial Fill upon patient request. 1 tab PO DAILY PRN 30 tabs 0RF pain 30 days zolpidem MassPat Verified 5 mg PO BEDTIME PRN 30 tabs 0RF sleep 30 days G47.9 - Sleep disorder, unspecified
[2025-01-06 14:37] VITALS: BP 128/60; PULSE 72; RESP 14; TEMP 36.6; O2SAT 96; BMI 26.6
== END 2025-01-06 15:00 | disposition home or self-care (01) ==
LOC: HO.HMCFM 14:24
PROVIDERS: PCP Family Medicine; Visit Provider Family Medicine
DX: I10 Essential (primary) hypertension (principal); M25.511 Pain in right shoulder; M25.512 Pain in left shoulder; G47.00 Insomnia, unspecified

== ENCOUNTER → 2025-01-06 14:23 | Outpatient (BNVA) | payer OTHER, SELFPAY | PROVIDERS: PCP Family Medicine; Visit Provider Family Medicine | DX: I10 Essential (primary) hypertension (principal); M25.511 Pain in right shoulder; M25.512 Pain in left shoulder; G47.00 Insomnia, unspecified; Z79.899 Other long term (current) drug therapy | CPT/HCPCS: 99212 ==

== ENCOUNTER 2025-01-12 06:23 | Outpatient (REF) | payer OTHER, SELFPAY | END 2025-01-12 06:24 | disposition home or self-care (01) | LOC: CF 06:23 | PROVIDERS: Visit Provider Internal Medicine | DX: M25.512 Pain in left shoulder (principal) | CPT/HCPCS: 64555; C1778; J2003 ==

== ENCOUNTER 2025-01-12 12:06 | Outpatient (AMB) | payer MEDICARE, SELFPAY ==
[2025-01-12 12:16] VITALS: BP 118/70; PULSE 77; O2SAT 96
--- NOTE | 2025-01-12 12:16 | MHC.OFFVIS ---
Vital Signs 01/12/25 12:16 Height 5 ft 4 in BP 118/70 Blood Pressure Location Rt brachial Position Sitting Pulse 77 Pulse Source Pulse Oximeter Pulse Oximetry (%) 96 Oxygen Delivery Method Room Air Intake Visit Reasons: Left suprascapular Sprint Allergies amoxicillin Allergy (Mild, Verified 01/12/25 12:17) Rash Penicillins Allergy (Mild, Verified 01/12/25 12:17) Rash tramadol Adverse Reaction (Intermediate, Verified 01/12/25 12:17) Shakiness HPI HPI Left suprascapular Sprint: Details: Patient presents for scheduled procedure. Denies any recent cough, cold, infection, fever or other significant changes in medical history since last office visit. [facility] Medical History Cervicalgia Hyperlipidemia Hypertension Bilateral shoulder pain COPD (chronic obstructive pulmonary disease) Left hand pain Trigger finger, left ring finger Coronary artery disease Chronic low back pain Surgical History History of hemiarthroplasty of right shoulder Family History Other Substance abuse Social History Housing: House Alcohol intake: current Alcohol intake frequency: a few times a week Alcohol type: beer Patient Tobacco Use Status: Former Tobacco user e-Cigarette/Vaping Use: Never Used service: No Current occupational status: retired Current occupation: Left hand dominant Cognitive needs: No Hearing needs: No Vision needs: No Physical Exam Vital Signs: Last Vital Signs Pulse 77 01/12/25 12:16 BP 118/70 01/12/25 12:16 Pulse Ox 96 01/12/25 12:16 Oxygen Delivery Method Room Air 01/12/25 12:16 Office Procedures Details: Peripheral Nerve Stimulation Temporary Lead Placement, Ultrasound-Guided, Suprascapular Nerve, Left ? After the risks, benefits and alternatives were discussed with the patient and informed consent was obtained, patient was placed in the sitting position and padded to foster comfort. Appropriate skin and bony landmarks were identified using ultrasound, including the left suprascapular notch. The skin overlying the needle entry site was prepped and draped in sterile fashion. After identifying and marking the intended target along the course of the suprascapular nerve, the skin around the planned entry point and the subcutaneous tissues were injected with local anesthetic. An introducer needle and stimulating probe were assembled, inserted and advanced along the intended course of the suprascapular nerve, taking care to maintain the proper depth of insertion as the introducer was advanced under ultrasound guidance. Bony contact was achieved with the scapula and maintained throughout. The introducer needle was delivered to a location in proximity to the nerve. Multiple stimulation parameters were used to deliver stimulation to the suprascapular nerve in concert with stimulating at multiple positions around the nerve. Nerve target acquisition was confirmed noting generation of sensory and mild motor effects (paresthesia, muscle tension, etc) in the shoulder and proximal arm; corresponding to the distribution of the suprascapular nerve. Various electrical parameter combinations were tested, and the lead location was adjusted (physically relocated under image guidance) until the patient indicated shoulder paresthesia and tension overlapping the distribution of the patient?s typical region of pain. The stimulating probe was removed from the introducer and a percutaneous lead was guided through the needle and delivered to a location in similar proximity to the nerve. Final location was verified with electrical stimulation and documented. The introducer needle was removed, and the exposed end of the percutaneous lead was attached to an external stimulator unit. Various electrical parameter combinations were again tested until the patient indicated paresthesia and muscle tension overlapping the distribution of the patient?s typical region of pain. After confirming that lead impedance was in the normal range, the external unit was detached, the needle was removed, and the lead was anchored at the skin. The needle entry site was occluded with dermabond. The lead was threaded into the connector block and electrical continuity and desired patient response was confirmed. The connector block was attached to the external stimulator unit. The site was covered with a sterile occlusive dressing.? A final image was taken to document final placement. The patient was observed for stability of vital signs and comfort. 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 Patient tolerated procedure well and was discharged home in stable condition with discharge instructions. All questions were answered. We will follow-up via telephone or in clinic to assess response to therapy. A follow-up appointment was made during today's visit. Orders: Orders US guide needle placement Today M25.512 - Pain in left shoulder AMB Sprint PNS Today M25.512 - Pain in left shoulder Medications: New lidocaine HCl 5 mL subcut ONCE 5 mL 0RF M25.512 - Pain in left shoulder Coding Level of Care Code Procedure Only Diagnoses Left shoulder pain M25.512 CPT Codes Sprint PNS - Sprint PNS Device: Sprint PNS Device ([id number]) Sprint PNS - SPRINT: 37967 - Percutaneous Peripheral Neuroelectrode ([id number])
== END 2025-01-12 12:45 | disposition home or self-care (01) ==
LOC: HO.PMCPRC 12:06
PROVIDERS: PCP Family Medicine; Visit Provider Internal Medicine
DX: M25.512 Pain in left shoulder (principal)
CPT/HCPCS: 64555

== ENCOUNTER 2025-01-19 09:06 | Outpatient (AMB) | payer OTHER, SELFPAY ==
--- NOTE | 2025-01-19 09:10 | A.OFFVIS_ITS ---
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 Beltrán on 01/12/25 and right suprascapular Sprint removal. He reports 90% pain relief for left shoulder and 60% right shoulder pain with improvement in his daily functioning, daily activities especially gardening, better movements and ROM, and improved sleep except continues to avoid sleeping on the right side. Patient reported issues managing right shoulder pain and device stability since recent bone scan of right shoulder due to positioning during the test. Patient with previous right shoulder surgery, reports a potential CT scan is considered following a recent bone scan, addressing any concerns about loosened devices. Current stimulation settings are 35 for the right shoulder and 57 for the left shoulder, with overly high settings causing headaches. The patient has experienced significant reduction in shoulder pain since receiving stimulation. The right shoulder's pain level is currently at 4/10, while the left shoulder experiences minimal pain. The dressing was removed today. Right and left lead insertion sites are clean, dry, intact, no swelling, no pathological discharge. Areas were cleansed with Chloraprep. Right lead pulled with tip intact, lead removed entirely, including tip. Area was cleansed with Chloraprep, applied Bacitracin and covered with Sprint Tegaderm film and gauze dressing. Dressing change was done for left side, area was cleansed with Chloraprep, applied Bacitracin and covered with Sprint Tegaderm film. Past Procedures: 01/12/25: Left suprascapular Sprint-90% ongoing pain relief 12/22/24: Left suprascapular nerve block-90% pain relief for 2 days 11/24/24: Right suprascapular Sprint--60-70% ongoing pain relief; removed 07/21/24: Right suprascapular nerve block- 50-60% pain relief for 6 hours PRIOR: Patient is a pleasant 73-year-old gentleman with a 10 year history of right shoulder replacement at [place] and persistent mild dysfunctional right rotator cuff, cervical fusion with rods in place at C5-C6, cervical degenerative disc disease, left shoulder pain, presents today for initial evaluation of right edilma ulder pain worse night. He reports work related injury in 2003 due to heavy lifting which injured his neck and shoulder. 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 Patient was referred to us by Dr. Olivas, [facility] as he does not indicate a large revision shoulder arthroplasty surgery. Patient reports he was offered reversal shoulder surgery at [facility] but is hesitant to undergo any additional surgery. Right shoulder pain has been localized to lateral and anterior aspects with mild tenderness. Pain is worse at night and during the day with activities and movements. Reports disrupted sleep due to constant need to reposition. He also has left shoulder pain due to OA. Reports remote history of therapeutic injections with mixed results. Neck pain is worse with extension and limited on the left, associated with increased pain in shoulders and muscle stiffness. Patient reports oral and topical medications provide temporary relief and allow slightly improved functioning. Chronic shoulder pain has been resistant to conservative treatments. Patient also reports significant low back pain, worse with lumbar extension and axial rotations and relieved by bending forward. Denies any fever or chills, unintentional weight loss, dizziness, shortness of breath, chest pain, weakness, paresthesias, bladder or bowel dysfunction or saddle anesthesia. Location: Bilateral shoulder pain, right>left, neck, low back pain into LLE Duration: Chronic pain since 2003 due to heavy work Characteristics of symptom or complaint: Throbbing, tiring, radiating, dull, sore, hurting, heavy Aggravating or associated factors: Sleeping on sides, movements, pulling, lifting Relieving factors: Changing positions, tramadol, gabapentin, modifying activities Treatment: Injections, PT, Chiropractic, massage, acupuncture, TENS, home traction [facility] Medical History Cervicalgia Hyperlipidemia Hypertension Bilateral shoulder pain COPD (chronic obstructive pulmonary disease) Left hand pain Trigger finger, left ring finger Coronary artery disease Chronic low back pain Surgical History History of hemiarthroplasty of right shoulder Family History Other Substance abuse Social History Housing: House Alcohol intake: current Alcohol intake frequency: a few times a week Alcohol type: beer Patient Tobacco Use Status: Former Tobacco user e-Cigarette/Vaping Use: Never Used service: No Current occupational status: retired Current occupation: Left hand dominant Cognitive needs: No Hearing needs: No Vision needs: No Review of Systems Const All systems reviewed & are unremarkable except as noted in HPI and below Physical Exam Vital Signs: Last Vital Signs Pulse 71 01/19/25 09:15 BP 161/76 H 01/19/25 09:15 Pulse Ox 98 01/19/25 09:15 Oxygen Delivery Method Room Air 01/19/25 09:15 BMI result Body Mass Index 25.5 General: Appears afebrile. Alert and oriented. Mood and affect appropriate. Follows and participates in conversation appropriately. Respiratory effort is unlabored. No cough. Able to transition from sit to stand unassisted. Ambulates with bilaterally normal heel strike and toe off. Lead Insertion Site: Right shoulder Lead insertion sites are clean, dry, intact. No pathological discharge, no swelling and no erythema. Left lead site dressing was changed today in the clinic. Positive paresthesia at 57-60 on the left. Right lead pulled with tip intact, lead removed entirely, including tip. Results Reviewed Results Reviewed: XR SHOULDER, RIGHT 12/24/23 FINDINGS: Bony alignment and mineralization are normal. There is an intact right shoulder arthroplasty, without hardware failure, loosening or periprosthetic fracture. The arthroplasty is well seated within the glenoid. The acromioclavicular and coracoclavicular intervals are normal. No soft tissue calcifications or foreign body seen. There is no right pneumothorax. IMPRESSION: An intact right shoulder arthroplasty is seen, without hardware failure, loosening or periprosthetic fracture. Assessment & Plan Assessment & Plan (1) Rotator cuff tear arthropathy of right shoulder: Code(s): M75.101 - Unspecified rotator cuff tear or rupture of right shoulder, not specified as traumatic; M12.811 - Other specific arthropathies, not elsewhere classified, right shoulder Category: Medical (2) History of hemiarthroplasty of right shoulder: Code(s): Z96.611 - Presence of right artificial shoulder joint Category: Surgical (3) Bilateral shoulder pain: Code(s): M25.511 - Pain in right shoulder; M25.512 - Pain in left shoulder Category: Medical Plan We will maintain the current stimulation settings for the patient's left suprascapular nerve, monitoring response and symptom management. Dressing changes will be continued at home, with patient's assistance. Modifications will be made to avoid increasing headache symptoms, keeping levels under the threshold that triggers discomfort. Right suprascapular Sprint lead was removed today with tip intact, lead removed entirely, including tip. A potential CAT scan is considered following a recent bone scan, addressing any concerns about loosened devices. All questions were answered and the patient is in agreement of plan. Follow-up after right sided Sprint PNS placement and sooner as needed. Patient was informed and verbally consented to the use of an ambient scribe for clinic note documentation during this visit. Coding Level of Care Code Est Pt Level 3 (24151) Complex EM visit Add On G2211 Diagnoses Rotator cuff tear arthropathy of right shoulder M75.101; M12.811 History of hemiarthroplasty of right shoulder Z96.611 Bilateral shoulder pain M25.511; M25.512
[2025-01-19 09:15] VITALS: BP 161/76; PULSE 71; O2SAT 98; BMI 25.5
== END 2025-01-19 09:35 | disposition home or self-care (01) ==
LOC: HO.PMC 09:07
PROVIDERS: PCP Family Medicine; Visit Provider Nurse Practitioner Family
DX: M75.101 Unspecified rotator cuff tear or rupture of right shoulder, not specified as traumatic (principal); M12.811 Other specific arthropathies, not elsewhere classified, right shoulder; Z96.611 Presence of right artificial shoulder joint; M25.511 Pain in right shoulder; M25.512 Pain in left shoulder
CPT/HCPCS: 99024

== ENCOUNTER → 2025-01-19 09:06 | Outpatient (BNVA) | payer OTHER, SELFPAY | PROVIDERS: PCP Family Medicine; Visit Provider Nurse Practitioner Family | DX: M75.101 Unspecified rotator cuff tear or rupture of right shoulder, not specified as traumatic (principal); M12.811 Other specific arthropathies, not elsewhere classified, right shoulder; Z96.611 Presence of right artificial shoulder joint; M25.511 Pain in right shoulder; M25.512 Pain in left shoulder | CPT/HCPCS: 99212 ==

== ENCOUNTER 2025-03-09 07:33 | Outpatient (REF) | payer OTHER, SELFPAY ==
[2025-03-09 11:02] LABS: MANUAL DIFF FLAG NO
[2025-03-09 11:16] LABS: Appearance Urine Clear; Glucose Urine UA Negative (Negative); PH 6.5 (5.0-9.0); Specific Gravity - Urine 1.020 (1.005-1.025)
[2025-03-09 11:25] LABS: Hematocrit 43.9 % (42.0-52.0); Hemoglobin 14.6 g/dl (14.0-18.0); Imm Gran Abs Auto 0.01 X10*3/uL (0.00-0.03); Imm Gran Pct Auto 0.2 % (0.0-0.4); Lymphocytes Absolute Auto 1.7 X10*3/uL (1.2-4.9); Mean Corpuscular HGB Conc 33.3 g/dl (31.0-36.0); Mean Corpuscular Hemoglobin 30.5 pg (27.0-33.0); Mean Corpuscular Volume 91.8 fL (80.0-98.0); NRBC Abs Auto 0.000 X10*3/uL (0.0-0.012); NRBC Pct Auto 0.0 /100WBC (0.0-0.2); Platelet Count 231 X10*3/uL (160-400); Red Blood Count 4.78 X10*6/uL (4.60-5.80); White Blood Count 4.8 X10*3/uL (4.8-10.8)
[2025-03-09 11:44] LABS: Alanine Aminotransferase 38 U/L (0-40); Albumin Level 4.3 g/dL (3.5-5.0); Alkaline Phosphatase 55 U/L (39-117); Anion Gap 11 (12-20); Aspartate Amino Transferase 34 U/L (5-37); Blood Urea Nitrogen 13 mg/dL (9-16); Calcium 8.8 mg/dL (8.4-10.2); Carbon Dioxide 25 mmol/L (22-29); Chloride 107 mmol/L (96-108); Cholesterol 199 mg/dL (<200); Estimated Glomerular Filt Rate > 60; HDL Cholesterol 40 mg/dL (>40); Potassium 4.1 mmol/L (3.3-5.1); Sodium 139 mmol/L (135-145); Total Protein 6.9 g/dL (6.5-8.0); Triglycerides 131 mg/dL (<150)
[2025-03-09 11:47] LABS: Microalbum/Creatinine Ratio Ur 3.9 ug/mg cr (<30)
== END 2025-03-09 07:34 | disposition home or self-care (01) ==
LOC: HO.WFDLDS 07:33
PROVIDERS: Visit Provider Family Medicine
DX: Z00.00 Encounter for general adult medical examination without abnormal findings (principal); Z12.5 Encounter for screening for malignant neoplasm of prostate; I10 Essential (primary) hypertension
CPT/HCPCS: 36415; 80053; 80061; 81003; 82043; 82570; 84153; 84443; 85025

== ENCOUNTER 2025-03-09 08:22 | Outpatient (AMB) | payer OTHER, SELFPAY ==
--- NOTE | 2025-03-09 08:45 | A.OFFVIS_ITS ---
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 The left shoulder shows improvement, with pain rated at 2/10, which is more pronounced at night. He reports significant improvement with daily activities and movements. He enjoys working in his backyard and gardening however continues to experiences right shoulder pain at night. His right shoulder pain with previous shoulder surgery was previously managed with Sprint PNS trial as well. 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 The dressing was removed today. Left lead insertion sites is clean, dry, intact, no swelling, no pathological discharge. Area was cleansed with Chloraprep. Light lead pulled with tip intact, lead removed entirely, including tip. Area was cleansed with Chloraprep, applied Bacitracin and covered with Sprint Tegaderm film and gauze dressing. Past Procedures: 01/12/25: Left suprascapular Sprint-90% ongoing pain relief; removed 03/09/25 12/22/24: Left suprascapular nerve block-90% pain relief for 2 days 11/24/24: Right suprascapular Sprint--60-70% ongoing pain relief; removed 01/19/25 07/21/24: Right suprascapular nerve block- 50-60% pain relief for 6 hours PRIOR: Patient is a pleasant 73-year-old gentleman with a 10 year history of right shoulder replacement at [place] and persistent mild dysfunctional right rotator cuff, cervical fusion with rods in place at C5-C6, cervical degenerative disc disease, left shoulder pain, presents today for initial evaluation of right shoulder pain worse night. He reports work related injury in 2003 due to heavy lifting which injured his neck and shoulder. 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 Patient was referred to us by Dr. Olivas, [facility] as he does not indicate a large revision shoulder arthroplasty surgery. Patient reports he was offered reversal shoulder surgery at [facility] but is hesitant to undergo any additional surgery. Right shoulder pain has been localized to lateral and anterior aspects with mild tenderness. Pain is worse at night and during the day with activities and movements. Reports disrupted sleep due to constant need to reposition. He also has left shoulder pain due to OA. Reports remote history of therapeutic injections with mixed results. Neck pain is worse with extension and limited on the left, associated with increased pain in shoulders and muscle stiffness. Patient reports oral and topical medications provide temporary relief and allow slightly improved functioning. Chronic shoulder pain has been resistant to conservative treatments. Patient also reports significant low back pain, worse with lumbar extension and axial rotations and relieved by bending forward. Denies any fever or chills, unintentional weight loss, dizziness, shortness of breath, chest pain, weakness, paresthesias, bladder or bowel dysfunction or saddle anesthesia. Location: Bilateral shoulder pain, right>left, neck, low back pain into LL E Duration: Chronic pain since 2003 due to heavy work Characteristics of symptom or complaint: Throbbing, tiring, radiating, dull, sore, hurting, heavy Aggravating or associated factors: Sleeping on sides, movements, pulling, lifting Relieving factors: Changing positions, tramadol, gabapentin, modifying activities Treatment: Injections, PT, Chiropractic, massage, acupuncture, TENS, home traction [facility] Medical History Cervicalgia Hyperlipidemia Hypertension Bilateral shoulder pain COPD (chronic obstructive pulmonary disease) Left hand pain Trigger finger, left ring finger Coronary artery disease Chronic low back pain Surgical History History of hemiarthroplasty of right shoulder Family History Other Substance abuse Social History Housing: House Alcohol intake: current Alcohol intake frequency: a few times a week Alcohol type: beer Patient Tobacco Use Status: Former Tobacco user e-Cigarette/Vaping Use: Never Used service: No Current occupational status: retired Current occupation: Left hand dominant Cognitive needs: No Hearing needs: No Vision needs: No Review of Systems Const All systems reviewed & are unremarkable except as noted in HPI and below Physical Exam Vital Signs: Last Vital Signs Pulse 71 03/09/25 08:48 BP 130/74 03/09/25 08:48 Pulse Ox 97 03/09/25 08:48 Oxygen Delivery Method Room Air 03/09/25 08:48 BMI result Body Mass Index 25.7 General: Appears afebrile. Alert and oriented. Mood and affect appropriate. Follows and participates in conversation appropriately. Respiratory effort is unlabored. No cough. Able to transition from sit to stand unassisted. Ambulates with bilaterally normal heel strike and toe off. Lead Insertion Site: Left shoulder Lead insertion sites are clean, dry, intact. No pathological discharge, no swelling and no erythema. Left lead pulled with tip intact, lead removed entirely, including tip. Results Reviewed Results Reviewed: XR SHOULDER, RIGHT 12/24/23 FINDINGS: Bony alignment and mineralization are normal. There is an intact right shoulder arthroplasty, without hardware failure, loosening or periprosthetic fracture. The arthroplasty is well seated within the glenoid. The acromioclavicular and coracoclavicular intervals are normal. No soft tissue calcifications or foreign body seen. There is no right pneumothorax. IMPRESSION: An intact right shoulder arthroplasty is seen, without hardware failure, loosening or periprosthetic fracture. Assessment & Plan Assessment & Plan (1) Rotator cuff tear arthropathy of right shoulder: Code(s): M75.101 - Unspecified rotator cuff tear or rupture of right shoulder, not specified as traumatic; M12.811 - Other specific arthropathies, not elsewhere classified, right shoulder Category: Medical (2) History of hemiarthroplasty of right shoulder: Code(s): Z96.611 - Presence of right artificial shoulder joint Category: Surgical (3) Bilateral shoulder pain: Code(s): M25.511 - Pain in right shoulder; M25.512 - Pain in left shoulder Category: Medical Plan The plan includes monitoring the left shoulder following the Sprint removal. Left suprascapular Sprint lead was removed today with tip intact, lead removed entirely, including tip. The patient is encouraged to continue daily activities within pain limits, avoiding exacerbating movements. For the right shoulder, further evaluation in [place] is planned to assess the need for bone grafting and reverse shoulder procedure due to bone dissolution fi ndings per patient. All questions were answered and the patient is in agreement of plan. Follow-up as needed. Patient was informed and verbally consented to the use of an ambient scribe for clinic note documentation during this visit. Coding Level of Care Code Est Pt Level 3 (41821) Complex EM visit Add On G2211 Diagnoses Rotator cuff tear arthropathy of right shoulder M75.101; M12.811 History of hemiarthroplasty of right shoulder Z96.611 Bilateral shoulder pain M25.511; M25.512
[2025-03-09 08:48] VITALS: BP 130/74; PULSE 71; O2SAT 97; BMI 25.7
== END 2025-03-09 09:11 | disposition home or self-care (01) ==
LOC: HO.PMC 08:22
PROVIDERS: PCP Family Medicine; Visit Provider Nurse Practitioner Family
DX: M75.101 Unspecified rotator cuff tear or rupture of right shoulder, not specified as traumatic (principal); M12.811 Other specific arthropathies, not elsewhere classified, right shoulder; Z96.611 Presence of right artificial shoulder joint; M25.511 Pain in right shoulder; M25.512 Pain in left shoulder
CPT/HCPCS: 99213; G2211

== ENCOUNTER 2025-03-16 15:40 | Outpatient (AMB) | payer MEDICARE, SELFPAY ==
--- NOTE | 2025-03-16 16:38 | MHC.PC.OV ---
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: No Allergies amoxicillin Allergy (Mild, Verified 03/16/25 16:38) Rash Penicillins Allergy (Mild, Verified 03/16/25 16:38) Rash tramadol Adverse Reaction (Intermediate, Verified 03/16/25 16:38) Shakiness Medication List - Last Reconciled 03/16/25 by Lucho Hairston MD aspirin (Adult Aspirin Regimen) 81 mg PO DAILY ezetimibe (Zetia) 10 mg PO DAILY 90 days gabapentin 600 mg PO BID 90 days melatonin mg PO .prn metoprolol succinate ER 12.5 mg (1/2 x 25 mg) PO DAILY 90 days omeprazole 20 mg PO DAILY oxycodone-acetaminophen 5-325 mg (Percocet) 1 tab PO DAILY PRN 30 days tamsulosin 0.4 mg PO BEDTIME 90 days zolpidem 5 mg PO BEDTIME PRN 30 days Tobacco use date assessed: 03/16/25 Fall risk assessment: No Falls in past year Last assessed Fall Risk: 03/16/25 Dental Screening Dental Screen Date: 03/16/25 Did you have a dental visit in the last 12 months?: Yes Did you have a dental problem in the last 6 months where you did not have access to dental care?: No Was dental information given to patient?: Patient has dentist HPI Annual exam HPI Details 74 y/o male presents for an extended exam with f/u labs and health maintenance. Labs drawn 03/09/25. Reviewed labs with pt. Triglycerides 131. TC 199. LDL 133. HDL 40.He is on Zetia 10mg daily. PSA 3.51. He notes discomfort sometimes when he eats. Does have GERD. Blood pressure today 110/60, 84p. He is on metoprolol 12.5mg daily. Ongoing complaints of shoulder pain. Complaints of back pain. [facility] Medical History Cervicalgia Hyperlipidemia Hypertension Bilateral shoulder pain COPD (chronic obstructive pulmonary disease) Left hand pain Trigger finger, left ring finger Coronary artery disease Chronic low back pain Surgical History History of hemiarthroplasty of right shoulder Family History Other Substance abuse Social History Housing: House Alcohol intake: current Alcohol intake frequency: a few times a week Alcohol type: beer Patient Tobacco Use Status: Former Tobacco user e-Cigarette/Vaping Use: Never Used service: No Current occupational status: retired Current occupation: Left hand dominant Cognitive needs: No Hearing needs: No Vision needs: No Questionnaire PHQ-9 Over the last 2 weeks, how often have you been bothered by any of the following problems? 1. Little interest or pleasure in doing things: not at all 2. Feeling down, depressed, or hopeless: not at all 3. Trouble falling or staying asleep, or sleeping too much: not at all 4. Feeling tired or having little energy: more than half the days 5. Poor appetite or overeating: not at all 6. Feeling bad about yourself - or that you are a failure or have let yourself or your family down: not at all 7. Trouble concentrating on things, such as reading the newspaper or watching television: not at all 8. Moving or speaking so slowly that other people could have noticed. Or the opposite - being so fidgety or restless that you have been moving around a lot more than usual: not at all 9. Thoughts that you would be better off or of hurting yourself in some way: not at all Total score: 2 Depression Screening Interpretation: Negative Depression Screening Done: Yes 51240 - PHQ-9 Billing: Yes Source: Developed by Drs. Emanuel Gates, Kristina Hermosillo, Jett Blankenship and colleagues, with an educational angel from [employer]. Thrive Questionnaire Date Thrive assessed: 10/04/24 Please select the resources that you would like help with: None Currently or been in a relationship where the following occur: No concerns reported THRIVE Score: 0 AUDIT C Alcohol Use Questionnaire (AUDIT-C) 1. How often do you have a drink containing alcohol?: Monthly or less 2. How many drinks containing alcohol do you have on a typical day when you are drinking?: 1 or 2 3. How often do you have six or more drinks on one occasion?: Never Total Score: 1 JORDON-7 AMB Questionnaire JORDON-7 Date JORDON - 7 assessed: 03/16/25 Feeling nervous, anxious, or on edge: 0 = Not at all Not being able to stop or control worryin = Not at all Worrying too much about different things: 0 = Not at all Trouble relaxin = Not at all Being so restless that it is hard to sit still: 0 = Not at all Becoming easily annoyed or irritable: 0 = Not at all Feeling afraid as if something awful might happen: 0 = Not at all Total JORDON-7 score (0-4 normal; 5-9 mild; 10-14 moderate; 15-21 severe): 0 Source: Developed by Drs. Emanuel Gates, Kristina Hermosillo, Jett Blankenship and colleagues, with an educational angel from [employer]. JORDON-7 Assessment Billing JORDON-7 Assessment Tool: JORDON-7 Assessment 42742 Review of Systems Const Denies chills, Denies fatigue, Denies fever(s), Denies headache(s) and Denies weakness Eyes Denies change in vision ENT Denies dizziness, Denies headache(s), Denies hearing loss, Denies nasal congestion, Denies sinus pain, Denies sinus pressure and Denies sore throat Card Denies chest pain, Denies lightheadedness, Denies dyspnea and Denies other (palpitations) Resp Denies cough, Denies dyspnea and Denies wheezing GI Denies abdominal pain, Denies melena, Denies hematochezia, Denies change in bowel habits, Denies dyspepsia and Denies nausea Denies hematuria and Denies dysuria Musc Details: Shoulder pain Denies abnormal gait, Reports back pain, Denies myalgias, Denies arthralgias, Denies numbness and Denies tingling Skin/Breast Denies rash, Denies unusual bruising and Denies wounds Neuro Denies abnormal gait, Denies dizziness, Denies headache(s), Denies memory loss, Denies numbness, Denies Sensory deficit (Neuro), Denies tingling and Denies weakness Psych Denies anxiety, Denies depression and Denies memory loss Endo Denies cold intolerance, Denies fatigue, Denies heat intolerance, Denies polydipsia and Denies polyuria Cirilo/Lymph Denies easy bleeding and Denies easy bruising Aller/Immun Denies wheezing Physical exam (Primary Care) Tobacco/Smoking Status: Tobacco use Status Tobacco use date assessed 03/16/24 03/16/25 16:45 Patient Tobacco Use Status Former Tobacco user 03/16/25 16:45 e-Cigarette/Vaping Use Never Used 03/16/25 16:45 Depression Screening Interpretation: Negative Thrive Assessment: Date of Thrive Assessment Date Thrive assessed 10/04/24 03/16/25 16:45 Currently or been in a relationship where the following occur: No concerns reported Const General: no acute distress, well developed, alert and awake Nutritional Appearance: well nourished Orientation/consciousness: patient oriented x3 HENMT Head: Yes normocephalic and Yes atraumatic Ears: hearing grossly normal bilaterally and TM's normal bilaterally General nose exam: Normal external nose present and Normal nares present Mouth: Normal oral and palatal mucosa present and moist mucous membranes Teeth and gingiva: dentition normal Throat: Yes posterior oropharynx normal Eyes General: appearance normal, both eyes and all related structures Pupils: Equal, round and reactive pupils present and Pupil accommodation reflex normal EOM: EOMs intact bilaterally Neck Neck: Yes normal visual inspection, Yes no lymphadenopathy and Yes trachea midline Thyroid: Thyroid normal Carotids: no bruits Lymphatic: no lymphadenopathy noted Chest Chest palpation & inspection: normal inspection of the chest Resp Effort & Inspection: normal respiratory effort Auscultation: clear to auscultation bilaterally Cardio Rate: regular rate Rhythm: regular rhythm Heart sounds: S1 normal heart sound present, S2 normal heart sound present, no gallops, no murmurs and no rubs Bruits: no abdominal aortic bruits and no carotid bruits GI Palpation (GI): No Abdominal aortic bruit present, Soft to palpation, nontender, No hepatosplenomegaly present and No Rebound tenderness present Auscultation: normal bowel sounds General: Yes no CVA tenderness Back/Spine/Pelvis Back: no CVA tenderness Cervical Spine: cervical ROM normal and No Cervical spine tenderness Thoracic/Lumbar Spine: thoraco-lumbar ROM normal, No pain with thoraco-lumbar ROM, No thoracic spinal tenderness and No lumbar spinal tenderness Skin Lesions: no lesions Rashes: no rashes Trauma: no lacerations or abrasions Wounds: no wounds Nails: normal Neuro General: patient oriented x3 Cranial nerves: Yes Equal, round and reactive pupils present Cognition (Neuro): normal cognition Gait exam (Neuro): Normal gait present Motor exam (neuro): 5/5 motor strength present throughout Sensory Exam: No Sensory deficit (Neuro) Deep tendon reflexes (DTR's): Right patellar reflex intensity grade: 2+ and Left patellar reflex intensity grade: 2+ Extrem General: Yes normal to inspection and No edema Psych Appearance: grossly normal Affect: normal affect Attitude: cooperative Thought process: Normal thought process present Coding Level of Care Code Est Pt Level 4 (95588) Diagnoses Hyperlipidemia E78.5 Hypertension I10 Coronary artery disease I25.10 GERD (gastroesophageal reflux disease) K21.9 Screening for colon cancer Z12.11 Chronic low back pain M54.50; G89.29 Shoulder pain M25.519 Screening for prostate cancer Z12.5 Adult general medical exam Z00.00 Additional Codes JORDON-7 Assessment Billing - JORDON-7 Assessment Tool: JORDON-7 Assessment 74823 ([id number]) PHQ-9 - 32915 - PHQ-9 Billing: Yes ([id number]) Assessment & Plan Assessment & Plan (1) Hyperlipidemia: Code(s): E78.5 - Hyperlipidemia, unspecified Category: Medical Plan: Lipids remain elevated. He has not tolerated other statins He is tolerating Zetia which has improved his cholesterol Will continue to monitor (2) Hypertension: Code(s): I10 - Essential (primary) hypertension Category: Medical Plan: Blood pressure is well controlled. Goal is less than 130/80 Medication (3) Coronary artery disease: Code(s): I25.10 - Atherosclerotic heart disease of [place] coronary artery without angina pectoris Category: Medical Plan: Currently stable Follow-up with Cardiology as recommended (4) GERD (gastroesophageal reflux disease): Code(s): K21.9 - Gastro-esophageal reflux disease without esophagitis Category: Medical Plan: Continue omeprazole (5) Screening for colon cancer: Code(s): Z12.11 - Encounter for screening for malignant neoplasm of colon Category: Medical Plan: Patient says he had a colonoscopy around age 69 to 71 and was advised to follow-up in 10 years Up-to-date Will request report (6) Chronic low back pain: Code(s): M54.50 - Low back pain, unspecified; G89.29 - Other chronic pain Category: Medical (7) Shoulder pain: Code(s): M25.519 - Pain in unspecified shoulder Category: Medical (8) Screening for prostate cancer: Code(s): Z12.5 - Encounter for screening for malignant neoplasm of prostate Category: Medical Plan: PSA was within normal range Will continue in screening (9) Adult general medical exam: Code(s): Z00.00 - Encounter for general adult medical examination without abnormal findings Category: Medical Plan: 74-year-old male presents For an extended exam Plan Chronic back and shoulder pain. Patient notes that Percocet is managing his pain well. He is using them only as needed. Continue p.r.n. use We discussed previously that he should not use the Percocet and same time as his zolpidem which he takes at bedtime Medications: Refilled oxycodone-acetaminophen 5-325 mg (Percocet) [facility] Verified. Partial Fill upon patient request. 1 tab PO DAILY PRN 30 tabs 0RF pain 30 days zolpidem [facility] Verified 5 mg PO BEDTIME PRN 30 tabs 0RF sleep 30 days G47.9 - Sleep disorder, unspecified
[2025-03-16 16:49] VITALS: BP 110/60; PULSE 84; RESP 16; TEMP 36.6; O2SAT 97; BMI 27.1
== END 2025-03-16 17:10 | disposition home or self-care (01) ==
LOC: HO.HMCFM 15:41
PROVIDERS: PCP Family Medicine; Visit Provider Family Medicine
DX: E78.5 Hyperlipidemia, unspecified (principal); I10 Essential (primary) hypertension; I25.10 Atherosclerotic heart disease of native coronary artery without angina pectoris; K21.9 Gastro-esophageal reflux disease without esophagitis; Z12.11 Encounter for screening for malignant neoplasm of colon; M54.50 Low back pain, unspecified; G89.29 Other chronic pain; M25.519 Pain in unspecified shoulder; Z12.5 Encounter for screening for malignant neoplasm of prostate; Z00.00 Encounter for general adult medical examination without abnormal findings

== ENCOUNTER → 2025-03-16 15:40 | Outpatient (BNVA) | payer MEDICARE, SELFPAY | PROVIDERS: PCP Family Medicine; Visit Provider Family Medicine | DX: Z00.00 Encounter for general adult medical examination without abnormal findings (principal); K21.9 Gastro-esophageal reflux disease without esophagitis; E78.5 Hyperlipidemia, unspecified; I10 Essential (primary) hypertension; I25.10 Atherosclerotic heart disease of native coronary artery without angina pectoris; M54.50 Low back pain, unspecified; M25.511 Pain in right shoulder; M25.512 Pain in left shoulder; G89.29 Other chronic pain | CPT/HCPCS: 96127; 99212 ==

== ENCOUNTER 2025-03-24 10:18 | Outpatient (AMB) | payer MEDICARE, SELFPAY ==
--- OUTSIDE RECORDS SUMMARY | 2025-03-22 01:18 | XMS_ITS | Continuity of Care Document ---
Author Organization [facility] ter Address [address] [place] [id number] Care Team Providers Care Color Repairer Name Role Phone Mairka KAUFFMAN, Lucho Randall Primary Care Physician Encounter [facility] Date(s): 03/21/25 - 03/22/[address] [address]- Discharge Disposition: A-D/C Home Attending Physician: Jillian Humphrey MD Admitting Physician: Jillian Humphrey MD Referring Physician: Not on Staff, Referring MD Encounter Type: Disch ES Allergies, Adverse Reactions, Alerts Substance Criticality Severity Reaction Reaction Severity Status amoxicillin Active penicillin Unable to assess criticality Persistent Moderate Active Immunizations Given and Recorded Vaccine Date Status Refusal Reason [id number] bivalent booster vax 05/30/22 Recorded pneumococcal 20-valent [...] 07/01/21 R ecorded SARS-CoV-2 (COVID-19) mRNA-1273 vaccine 11/26/20 R ecorded SARS-CoV-2 (COVID-19) mRNA-1273 vaccine 11/26/20 R ecorded SARS-CoV-2 (COVID-19) mRNA-1273 vaccine 11/2020 R ecorded SARS-CoV-2 (COVID-19) mRNA-1273 vaccine 10/29/20 R ecorded SARS-CoV-2 (COVID-19) mRNA-1273 vaccine 10/29/20 R ecorded tetanus-diphtheria toxoids (Td) 2 12/23/21 Given tetanus-diphtheria toxoids (Td) 12/31/04 Recorded pneumococcal 23-valent vaccine 06/12/08 Recorded 1Result Comment: [facility] [id number] 2Result Comment: [facility] [id number] Medications aspirin 81 mg oral capsule 1 capsule = 81 mg, By Mouth, Every 24 hours, 0 Refills, Maintenance, 05/20/24 12:41:00 PM EDT, Partial fill upon patient request if the prescription is for a schedule II opioid drug. Start Date: 05/20/24 Status: Ordered Repeat number: 1 bempedoic acid 180 mg oral tablet 1 tablet = 180 mg, By Mouth, Daily, # 30 tablet, 11 Refills, Maintenance, 05/20/24 12:44:00 PM EDT, Tablet, [facility]/pharmacy #[id number], Partial fill upon patient request if the prescription is for a schedule II opioid drug., 163, cm, 05/20/24 12:42:00 EDT, Height, 68.3, kg, 04/11/24 14:01:00 EDT, Dry Weight Start Date: 05/20/24 Status: Ordered Quantity: 30.0 Unit: tablet Repeat number: 12 ezetimibe 10 mg oral tablet 1 tablet, By Mouth, Daily, # 90 tablet, 1 Refills, Maintenance, 05/16/24 4:22:00 AM EDT, [facility] STORE [id number], 163, cm, 05/08/24 14:12:00 EDT, Height, 68.3, kg, 04/11/24 14:01:00 EDT, Dry Weight Start Date: 05/16/24 Status: Ordered Quantity: 90.0 Unit: tablet Repeat number: 1 gabapentin 600 mg oral tablet 1 tablet, By Mouth, 2 times a day, # 180 tablet, 1 Refills, Maintenance, 11/23/23 6:41:00 AM EDT, [id number], 163, cm, 05/19/23 13:50:00 EDT, Height, 71.8, kg, 11/02/22 11:27:00 EST, Dry Weight Start Date: 11/23/23 Status: Ordered Quantity: 180.0 Unit: tablet Repeat number: 1 LORazepam 1 mg oral tablet 1 tablet = 1 mg, By Mouth, Daily at bedtime, PRN as needed for anxiety, # 30 tablet, 0 Refills, Soft Stop, 02/05/23 6:28:00 AM EDT, [facility]/pharmacy #[id number], 163, cm, 11/02/22 11:27:00 EST, Height, 71.8, kg,11/02/22 11:27:00 EST, Dry Weight Start Date: 02/05/23 Status: Ordered Quantity: 30.0 Unit: tablet Repeat number: 1 Indications: Anxiety disorder, unspecified; Insomnia, unspecified; melatonin 10 mg oral tablet, extended release 1 tablet = 10 mg, By Mouth, Daily at bedtime, PRN as needed for sleep, # 60 tablet, 0 Refills, Maintenance, 02/07/19 10:10:39 AM EDT, ER Tablet Start Date: 02/07/19 Status: Ordered Quantity: 60.0 Unit: tablet Repeat number: 1 Metoprolol Succinate ER 25 mg oral tablet, extended release 1 tablet, By Mouth, Daily, # 90 tablet, 1 Refills, Maintenance, 11/03/22 11:26:00 AM EST, [facility] #[id number], 163, cm, 11/02/22 11:27:00 EST, Height, 71.8, kg, 11/02/22 11:27:00 EST, Dry Weight Start Date: 11/03/22 Status: Ordered Quantity: 90.0 Unit: tablet Repeat number: 1 omeprazole 20 mg oral enteric coated capsule 1 capsule, By Mouth, Daily, # 90 capsule, 1 Refills, Maintenance, 02/18/24 6:55:00 AM EDT, [facility] [id number], 163, cm, 05/19/23 13:50:00 EDT, Height, 71.8, kg, 11/02/22 11:27:00 EST, Dry Weight Start Date: 02/18/24 Status: Ordered Quantity: 90.0 Unit: capsule Repeat number: 1 PreserVision AREDS 2 1 capsule, By Mouth, Daily, 0 Refills, Maintenance, 02/07/19 10:10:19 AM EDT Start Date: 02/07/19 Status: Ordered Repeat number: 1 tamsulosin 0.4 mg oral capsule 1, capsule, By Mouth, Daily at bedtime, # 90 capsule, Refills 0, Maintenance, 01/28/24 4:37:00 PM EDT, Route to Pharmacy Electronically, [id number], 163, cm, 05/19/23 13:50:00 EDT, Height, 71.8, kg, 11/02/22 11:27:00 EST, Dry Weight Start Date: 01/28/24 Status: Ordered Quantity: 90.0 Unit: capsule Repeat number: 1 Vitamin B12 0 Refills, Maintenance, 07/18/22 2:09:00 PM EST, Partial fill upon patient request if the prescription is for a schedule II opioid drug. Start Date: 07/18/22 Status: Ordered Repeat number: 1 Vitamin D3 oral tablet 1 tablet = 10 mcg, By Mouth, Daily, 0 Refills, Maintenance, 07/18/22 2:08:00 PM EST, Partial fill upon patient request if the prescription is for a schedule II opioid drug. Start Date: 07/18/22 Status: Ordered Repeat number: 1 Xeroform (4x9) See Instructions, # 10 each, Refills 0, Tot. Refills 0, Maintenance, Use sas directed to change dressing daily., 12/23/21 11:46:00 AM EDT, Supply Start Date: 12/23/21 Status: Ordered Quantity: 10.0 Unit: each Repeat number: 1 zolpidem 5 mg oral tablet 1 tablet = 5 mg, By Mouth, Daily at bedtime, PRN as needed for insomnia, 0 Refills, Maintenance, 05/20/24 12:40:00 PM EDT, Tablet, Partial fill upon patient request if the prescription is for a schedule II opioid drug. Start Date: 05/20/24 Status: Ordered Repeat number: 1 Problem List Condition Confirmation Course Effective Dates [...] finding Confirmed Active Brain TIA Confirmed Active Results Radiology Reports * Exam Date Time Procedure Performing Provider Status 03/21/25 10:28 PM Abdomen AP Auth (Verif ied) Notes: (Abdomen AP) Reason For Exam: partial mesfin ? resovled;Other: RESULT: XR Abdomen AP XR Abdomen AP 1 view INDICATION/CLINICAL QUESTION: Hx of Present Illness: from [facility], NGT insterted surg consult, went to [facility] for abd pain; Reason: Other:; partial mesfin ? resovled; Clinical Question(s): Other:; pt sent over for partial sbo seems just had bm and pain gone, looking to where contrast is COMPARISON: CT earlier today. FINDINGS: Earlier administered enteric contrast has reached the rectum. There is no evidence of a mechanical small bowel obstruction. There is mild gaseous distention of left mid abdominal jejunal and ileal small bowel loops also present on prior study. This may be due to slow transit rather than an obstructi on. No evidence of pneumoperitoneum. No organomegaly, masses or calcifications. No acute bone findings. IMPRESSION: Enteric contrast has reached the colon. There is no evidence of a bowel obstruction. There are few slightly distended left mid abdominal small bowel loops which could be due to enteritis or slow transit time. WSN: [id number] Ordering Physician: Jillian Humphrey Dictated By: Marcio Pineda MD Dictated Date/Time: 03/21/25 10:48 p Reviewed By: Marcio Pineda MD Signed By: Marcio Pineda MD Signed Date/Time: 03/21/25 10:48 pm Transcribed By: FAISAL Transcribed Date/Time: 03/21/25 10:44 pm Social History Social History Type Response Smoking Status Former smoker, quit more than 30 days ago; Other: quit 1992; entered on: 03/02/21 Sex Sex Representation Male (finding) Consult note * Nessa Nuno MD: PERFORM, MODIFY, MODIFY, MODIFY, MODIFY Event Display: Consult Authored Date: [id number] Patient: ??ARMANDO ALEJANDRA ? Age:??74 Years?Sex:??Male?:??1950?? Chief Complaint Reason for Consult: SBO Consulting Provider: History of Present Illness Armando??is a 74-year-old male who presented to[facility] with concerns of worsening abdominalpain??that had started on??Thursday and gradually worsened??over the course of time.?? Per outside documentation, the??pain was reported to be constant and??fluctuated in intensity.?? For workup of his? ?abdominal pain??a CT A/P was obtained??at outside hospital, concerning for??partial small bowel obstruction with small bowel dilation up to 3.3 cm in size.?? There is??fecal retention though no definitive??transition point is noted. ??Surgical consultation was recommended, and thus??he has been tra nsferred to [facility]??with an NG tube placed??prior to transport. ?? Patient was evaluated upon arrival to the ED. He is very comfortably reading a book in his stretcher. He states that his pain started around 3PM on Thursday afternoon and progressively got worse throughout the day into Thursday. He presumed this to be due to constipation as he had hard stools. He took Senna and Miralax and did have several small, hard stools. He had another bowel movement on Thursday morning though his pain continued. Pain is localized in the right lower quadrant and does not radiate. He attempted to drink water this morning when he had an acute worsening in the pain, and thisis ultimately what prompted presentation to the ED. After his NGT was placed he did have an improvement in his pain. Additionally, upon arrival to [facility] he did have a bowel movement. No blood in the stool. He no longer has abdominal pain or feels bloated. He has no other concerns at this time. He denies shortness of breath, chest pain, fevers or chills. His only abdominal surgery was a previous open left inguinal hernia repair in 2020. Review of Systems 12 point ROS completed. Negative unless otherwise stated in HPI/subjective. Physical Exam Vitals & Measurements T:??97.8?F?? HR:??94??(Peripheral)?? RR:??19?? BP:??107/89?? SpO2:??98%?? GENERAL: No acute distress. Non-toxic. Well appearing and interactive. HEENT: Normocephalic. Atraumatic. Trachea midline. NGT in place, not on suction at time of my evaluation. HEART: Regular rate and rhythm. RESPIRATORY: Equal and symmetric chest rise bilaterally; no increased work of breathing. ABDOMEN: Soft. Non-tender to palpation, without rebound or guarding. Non-distended. MUSCULOSKELETAL: Moving all extremities equally. No calf fullness or tenderness. Compartments soft. SKIN: Warm and well perfused. Intact skin turgor. No edema noted on exam. NEURO: AOx3 Assessment/Plan Mr. Alejandra is a 74-year-old male with a history of hypertension, GERD,??anxiety, hyperlipidemia, CAD,previous TIA??and open left??IHR in 2020 who presented to outside hospital for concerns of??worsening abdominal pain over the past 24 hours.?? He was ultimately transferred to [facility] for surgical consultation. ??He is hemodynamically stable and afebrile on arrival.??NGT is in place. His abdomen is soft, nontender and nondistended. He has had return of bowel function upon arrival to [facility]. He has no leukocytosis, WBC of 8.4, H&H is stable, electrolytes within normal limits. UA is negative. ? CT imaging done does show a small bowel obstruction with dilation up to 3.3 cm??along with mesenteric edema and fecal retention. ??There is no definitive transition point.??Given return of bowel function and improvement in pain, we will obtain a KUB to see if contrast has passed into the colon. If there is contrast in the colon, he may trial oral intake and if he tolerates this well he can be discharged from the emergency department. ?? Plan: - Obtain KUB - If contrast in colon, can trial PO intake - If tolerate PO intake, can be discharged from the ED ?? Patient discussed with Dr. Graves Please page [phone] with questions and concerns. Problem List/Past Medical History Ongoing Anxiety AP (abdominal pain) Arteriosclerotic vascular disease Brain TIA Calcification of coronary artery Chronic neck pain Colon polyp Constipation Dorsal back pain Dysphagia Gastroesophageal reflux disease Hyperlipidemia Hypertension Hypocalcemia Inguinal hernia Insomnia Neck pain Neuropathic pain of hand Palpitation Papule Prostatism Pruritus Rash Right shoulder pain Seborrheic dermatitis Shoulder pain Sleep disturbance Tinnitus Tobacco use and exposure - finding Procedure/Surgical History Carpal tunnel History of Arthrodesis Cervical History of Shoulder Arthroplasty Total Shoulder Replacement Home Medications Aspirin: 81 mg = 1 capsule, By Mouth, Every 24 hours bempedoic acid: 180 mg = 1 tablet, By Mouth, Daily Cholecalciferol: 10 mcg = 1 tablet, By Mouth, Daily Cyanocobalamin Durable Medical Equipment: See Instructions, Use sas directed to change dressing daily. Ezetimibe: 1 tablet, By Mouth, Daily Gabapentin: 1 tablet, By Mouth, 2 times a day Lorazepam: 1 mg = 1 tablet, By Mouth, Daily at bedtime, PRN (as needed for anxiety) Melatonin: 10 mg = 1 tablet, By Mouth, Daily at bedtime, PRN (as needed for sleep) Metoprolol: 1 tablet, By Mouth, Daily Multivitamin With Minerals: 1 capsule, By Mouth, Daily Omeprazole: 1 capsule, By Mouth, Daily Tamsulosin: 1 capsule, By Mouth, Daily at bedtime Zolpidem: 5 mg = 1 tablet, By Mouth, Daily at bedtime, PRN (as needed for insomnia) Allergies penicillin Aleve amoxicillin Social History Alcohol Use: Current. Frequency: 1-2 times per week. Electronic Cigarette/Vaping Electronic Cigarette Use: Never. Employment/School Status: Retired. Exercise Self assessment: Good condition. Home/Environment Living situation: Home/Independent. Lives with: Spouse. Nutrition/Health Diet: Low sodium. Sexual Sexually involved in last 6 months: Yes. Substance Abuse Use: Never. Tobacco Use: Former smoker, quit more than 30 days ago. Other: quit 1992. Family History Mother: Hypertension Father: Hyperlipidemia; Myocardial infarction Brother: Alcoholism Other: Brain tumor Radiology ?? RESULT: CT Abd/Pelvis W/ IV + Oral Contrast CT Abd/Pelvis W/ IV + Oral Contrast? Hx of Present Illness: pt in from home for stomach cramps that started at approx 1500 T-1. Pt took omeprazole without relief. Pt reports cramping increased after eating dinner. Pt reports some lactose intolerance. Pt denies n v d. Reports took senna with semmi-normal BM.; Reason: Other:; Generalized Abdominal Pain r o Appendicitis; Clinical Question(s): Appendicitis ?? TECHNIQUE: Spiral CT through the abdomen and pelvis with IV contrast formatted in 3 planes. 100 cc of Isovue 300 was administered intravenously. This study was performed with oral contrast. Weight-based protocol using automatic tube modulation was used to optimize exposure parameters. CTDIvol Body:9.15 mGy, ??DLP Body: 430 mGy*cm. ? COMPARISON: None. ?? FINDINGS:? Supervisor Laundry View Findings, Lines and Tubes: None. ?? Visualized Chest: Bibasilar atelectasis. No pleural effusion. The heart is normal in size. No pericardial effusion. ?? Diaphragm: Normal. ?? Liver: Normal. ?? Gallbladder: No CT evidence of gallbladder pathology. ?? Bile ducts: No biliary ductal dilation. ?? Spleen: Normal. ?? Pancreas: Normal. ?? Adrenal glands: Normal. ?? Kidneys and ureters: No hydronephrosis, stones, or suspicious masses. ?? Bladder: Normal. ?? Reproductive organs: Unremarkable. ?? Stomach, small bowel, and large bowel: Stomach is normal in caliber. Small bowel loops proximally are dilated measuring up to 3.3 cm with scattered small air- fluid levels. There is fecalization of small bowel content in the left upper quadrant compatible with slow transit were small bowel measures up to 3.3 cm (43/601). No definite transition point there is slow transition to more normal caliber small bowel in the right lower quadrant. Normal caliber of the large bowel. Scattered colonic diverticula without diverticulitis. Mild mesenteric edema and interloop fluid of the small bowel loops in the left upper quadrant. ?? Appendix: Normal. ?? Peritoneum and retroperitoneum: No pneumoperitoneum. Small volume of mesenteric edema and interloopfluid in the left upper quadrant as noted above. Small volume free fluid in the pelvis. No omental or mesenteric lesions. ?? Lymph nodes: No enlarged lymph nodes. ?? Blood vessels: Mild vascular calcifications but no aneurysm. No evidence of venous thrombosis. ?? Abdominal and pelvic wall: Unremarkable. ?? Bones: No acute abnormality. Mild degenerative changes of the lumbar spine. ?? IMPRESSION:? Dilated small bowel loops in the left upper quadrant with interloop fluid and mild mesenteric edema. The appearance is suggestive of partial small bowel obstruction, though a definite discrete transition point is not demonstrated. Differential comparisons could include ileus. Surgical consultation is suggested. ?? Scattered colonic diverticula without diverticulitis. Normal appendix. Lab Results Labs Last 24 Hours No qualifying data available. * Ely KAUFFMAN, Ramon H: PERFORM Event Display: Consult Authored Date: [id number] Attending Attestation: ?? The patient was seen, examined, and discussed with the??Emergency General Surgery??team on the dateof service documented above. ??The clinical course, labs, and radiological studies were reviewed byme and findings on exam confirmed. ??I agree with the findings as well as the assessment and plan as delineated above. I have??performed the substantive portion of the medical decision making for the Diagnoses ?? partial SBO resolved Medical Decision Making: HIGH -chronic illness w/ SEVERE exac, progression, or AE of Tx, or illness or injury that poses a threat to life or bodily function; 2 of (note / test / order / indep historian = 3), interpretation /discussion; HIGH risk --- Ramon Graves MD,??MAU, FACS, [facility] Division of Trauma, Acute Care Surgery, and Surgical Critical Care? Patient Care team information Care Team Personnel Name: Lucho Hairston MD Position: [facility] Outreach Member Role: PCP Address: [address] [place] [address] Telecom: Care Team Related Persons Name: JEANA ALEJANDRA Insurance Providers Guarantor name: ARMANDO ALEJANDRA [employer] [facility] Information #: 1 Payer: [facility] MEDIC[employer] ADV PPO Payer Identifier: NA Member Number: [id number] Group Number: [id number] Subscriber Identifier: [id number] Relationship to Subscriber: self Coverage Type: Medicare PPO Coverage Verification Date: NA Telecom: NA Address:
--- NOTE | 2025-03-24 10:25 | A.OFFPC_ITS ---
Vital Signs 03/24/25 10:34 Height 5 ft 4 in Weight 148 lb 8 oz BMI 25.5 BP 106/70 Blood Pressure Location Lt brachial Position Sitting Respiration 12 Pulse 72 Pulse Source Pulse Oximeter Temp 97.4 F Temp Source Oral Pulse Oximetry (%) 97 Oxygen Delivery Method Room Air Intake Visit Reasons: ED/[facility]/intestinal blockage Intake Note: patient is scheduled for ed follow up for intestinal blockage Apartment Rental Agent Required: No Allergies amoxicillin Allergy (Mild, Verified 03/24/25 10:33) Rash Penicillins Allergy (Mild, Verified 03/24/25 10:33) Rash tramadol Adverse Reaction (Intermediate, Verified 03/24/25 10:33) Shakiness Medication List - Last Reconciled 03/24/25 by Lucho Hairston MD aspirin (Adult Aspirin Regimen) 81 mg PO DAILY ezetimibe (Zetia) 10 mg PO DAILY 90 days gabapentin 600 mg PO BID 90 days melatonin mg PO .prn metoprolol succinate ER 12.5 mg (1/2 x 25 mg) PO DAILY 90 days omeprazole 20 mg PO DAILY oxycodone-acetaminophen 5-325 mg (Percocet) 1 tab PO DAILY PRN 30 days tamsulosin 0.4 mg PO BEDTIME 90 days zolpidem 5 mg PO BEDTIME PRN 30 days Tobacco use date assessed: 03/16/25 Dental Screening Dental Screen Date: 03/16/25 HPI ED/[facility]/intestinal blockage HPI Details Pt presents to f/u ED visit at [facility]. Patient presented earlier this week to [facility] with GERD like symptoms and abdominal discomfort constipation. CT abdomen showed loops of dilated small bowel with air-fluid levels however contrast did show up in the colon. An and he too was placed and he was transferred to [facility]. Patient noted that he was already feeling significantly better. He was continued on IV gauge with NG tube. Patient had multiple bowel movements at the hospital. He was able to take p.o. fluids and some crackers. Surgery did not feel that he required their intervention Lab work was unremarkable Pt notes abd. pain seems to be resolving. BP today 106/70. [facility] Medical History Cervicalgia Hyperlipidemia Hypertension Bilateral shoulder pain COPD (chronic obstructive pulmonary disease) Left hand pain Trigger finger, left ring finger Coronary artery disease Chronic low back pain Surgical History History of hemiarthroplasty of right shoulder Family History Other Substance abuse Social History Housing: House Alcohol intake: current Alcohol intake frequency: a few times a week Alcohol type: beer Patient Tobacco Use Status: Former Tobacco user e-Cigarette/Vaping Use: Never Used service: No Current occupational status: retired Current occupation: Left hand dominant Cognitive needs: No Hearing needs: No Vision needs: No Questionnaire PHQ-9 Over the last 2 weeks, how often have you been bothered by any of the following problems? 1. Little interest or pleasure in doing things: not at all 2. Feeling down, depressed, or hopeless: not at all 3. Trouble falling or staying asleep, or sleeping too much: more than half the days 4. Feeling tired or having little energy: several days 5. Poor appetite or overeating: not at all 6. Feeling bad about yourself - or that you are a failure or have let yourself or your family down: not at all 7. Trouble concentrating on things, such as reading the newspaper or watching television: not at all 8. Moving or speaking so slowly that other people could have noticed. Or the opposite - being so fidgety or restless that you have been moving around a lot more than usual: not at all 9. Thoughts that you would be better off or of hurting yourself in some way: not at all Total score: 3 Source: Developed by Drs. Emanuel Gates, Kristina Hermosillo, Jett Blankenship and colleagues, with an educational angel from [employer]. Thrive Questionnaire Date Thrive assessed: 03/24/25 I am a: Patient What is your living situation today?: I have a steady place to live Within the past 12 months, did the food you bought not last and you didn't have the money to get more?: Never true Within the past 12 months, did you worry whether your food would run out before you got money to buy more?: Never true Do you have trouble paying for medicines?: No Do you have trouble getting transportation to medical appointments?: No Do you have trouble paying your heating and electricity bill?: No Do you have trouble taking care of your child, family member or friend?: No Do you have trouble with day-to-day activities such as bathing, preparing meals, shopping, managing finances, etc.?: No Are you currently unemployed and looking for a job?: No Are you interested in more education?: No Please select the resources that you would like help with: None Currently or been in a relationship where the following occur: No concerns reported THRIVE Score: 0 JORDON-7 AMB Questionnaire JORDON-7 Date JORDON - 7 assessed: 03/16/25 Source: Developed by Drs. Emanuel Gates, Kristina Hermosillo, Jett Blankenship and colleagues, with an educational angel from [employer]. Review of Systems Const Denies chills, Denies fatigue, Denies fever(s), Denies headache(s) and Denies weakness ENT Denies dizziness and Denies headache(s) Card Denies chest pain, Denies lightheadedness, Denies dyspnea and Denies other (Palpitations) Resp Denies cough, Denies dyspnea, Denies wheezing and Denies other ( shortness of breath) Musc Denies numbness and Denies tingling Neuro Denies dizziness, Denies headache(s), Denies numbness, Denies tingling, Denies paresthesias and Denies weakness Psych Denies anxiety and Denies depression Endo Denies fatigue Aller/Immun Denies wheezing Physical exam (Primary Care) Vital Signs: Last Vital Signs Temp 97.4 F 03/24/25 10:34 Pulse 72 03/24/25 10:34 Resp 12 03/24/25 10:34 BP 106/70 03/24/25 10:34 Pulse Ox 97 03/24/25 10:34 Oxygen Delivery Method Room Air 03/24/25 10:34 BMI result Body Mass Index 25.5 Tobacco/Smoking Status: Tobacco use Status Tobacco use date assessed 03/16/25 03/24/25 10:26 Patient Tobacco Use Status Former Tobacco user 03/24/25 10:26 e-Cigarette/Vaping Use Never Used 03/24/25 10:26 PHQ-9: PHQ-9 Score PHQ-9: Total score 3 03/24/25 10:49 Thrive Assessment: Date of Thrive Assessment Date Thrive assessed 03/24/25 03/24/25 10:26 Currently or been in a relationship where the following occur: No concerns reported Const General: no acute distress and well developed Nutritional Appearance: well nourished Orientation/consciousness: patient oriented x3 [facility] Head: Yes normocephalic and Yes atraumatic Eyes General: appearance normal, both eyes and all related structures Pupils: Equal, round and reactive pupils present EOM: EOMs intact bilaterally Resp Effort & Inspection: normal respiratory effort Auscultation: clear to auscultation bilaterally Cardio Rate: regular rate Rhythm: regular rhythm Heart sounds: S1 normal heart sound present, S2 normal heart sound present, no gallops, no murmurs and no rubs Neuro General: patient oriented x3 and gait normal Cranial nerves: Yes Equal, round and reactive pupils present Psych Affect: normal affect Coding Level of Care Code TCM Mod MDM <= 7 Days Diagnoses Partial small bowel obstruction K56.600 Elevated fasting blood sugar R73.01 Assessment & Plan Assessment & Plan (1) Partial small bowel obstruction: Code(s): K56.600 - Partial intestinal obstruction, unspecified as to cause Category: Medical Plan: Patient presented earlier this week to [facility] with GERD like symptoms and abdominal discomfort constipation. CT abdomen showed loops of dilated small bowel with air-fluid levels however contrast did show up in the colon. An and he too was placed and he was transferred to [facility]. Patient noted that he was already feeling significantly better. He was con tinued on IV gauge with NG tube. Patient had multiple bowel movements at the hospital. He was able to take p.o. fluids and some crackers. Surgery did not feel that he required their intervention Lab work was unremarkable Partial small-bowel obstruction is resolved. Patient does have some chronic pain and I have given him some Percocet. We had a conversation about this and patient is aware that this medication can cause constipation and decreased motility of gut. He will ensure that he increases his hydration Can use laxatives Checking labs Were found me regarding lab work (2) Elevated fasting blood sugar: Code(s): R73.01 - Impaired fasting glucose Category: Medical Plan: Patient has had some elevated fasting blood sugars Will check an A1c with his upcoming lab work in we can follow-up on this together Orders: Orders Comprehensive Met. Panel Today K56.600 - Partial intestinal obstruction, unspecified as to cause TSH reflex Free T4 Today K56.600 - Partial intestinal obstruction, unspecified as to cause, Z00.00 - Encounter for general adult medical examination without abnormal findings Lactate Dehydrogenase Today K56.600 - Partial intestinal obstruction, unspecified as to cause Lipid Panel 2 Weeks I25.10 - Atherosclerotic heart disease of [place] coronary artery without angina pectoris, Z00.00 - Encounter for general adult medical examination without abnormal findings Complete Blood Count Auto Diff Today K56.600 - Partial intestinal obstruction, unspecified as to cause, Z00.00 - Encounter for general adult medical examination without abnormal findings Hemoglobin A1c Today R73.01 - Impaired fasting glucose Comprehensive [place]. Panel Fast 2 Weeks I25.10 - Atherosclerotic heart disease of [place] coronary artery without angina pectoris, Z00.00 - Encounter for general adult medical examination without abnormal findings
[2025-03-24 10:34] VITALS: BP 106/70; PULSE 72; RESP 12; TEMP 36.3; O2SAT 97; BMI 25.5
--- OUTSIDE RECORDS SUMMARY | 2025-03-24 10:38 | XMS_ITS | Encounter Summary ---
Author Organization [facility] Address [address] [facility] [address] [place] [phone] Phone Care Team Providers Care Order Builder Loader Name Role Phone Lucho Hairston MD Primary Care Provider Encounter Details Date Type Department Care Team (Late st Contact Info) Description 03/22/2025 Orders Only [facility] [address] [place], [place] [id number] Jessica [address] [address] [email or web address] Left shoulder pain (Primary Dx) Social History Tobacco Use Types Packs/Day Years [...] as of this encounter Plan of Treatment Upcoming Encounters Date Type Department Care Team (Late st Contact Info) Description 03/28/2025 9:00 AM EDT Appointment [facility], X-Ray - [address] [place] [address] Jian Reyes, DO 4 [facility] [place] [address] [email or web address] 03/28/2025 9:30 AM EDT Office Visit [facility] [address] [place] [address] [place] [address] Jian Reyes, DO 4 [facility] [place] [address] 03/29/2025 3:45 PM EDT Office Visit [address] [address] Justin Beltran MD [address] [place] [phone] [email or web address] Scheduled Orders Name Type Priority Associated Diagnoses Orde r Schedule XR Shoulder (Left) Imaging Routine Left shoulder pain Expected: 03/28/2025, Expires: 06/22/2025 documented as of this encounter Visit Diagnoses Diagnosis Left shoulder pain- Primary Pain in joint, shoulder region documented in this encounter Care Teams Order Builder Loader Relationship Specialty Start Date End Date Lucho Hairston MD [address] [place] [id number] PCP - General Family Medicine 05/02/24 documented as of this encounter Additional Source Comments The information contained in this document represents components of the legal health record. It is not the complete legal health record.[facility]
== END 2025-03-24 11:04 | disposition home or self-care (01) ==
LOC: HO.HMCFM 10:19
PROVIDERS: PCP Family Medicine; Visit Provider Family Medicine
DX: K56.600 Partial intestinal obstruction, unspecified as to cause (principal); R73.01 Impaired fasting glucose

== ENCOUNTER → 2025-03-24 10:18 | Outpatient (BNVA) | payer MEDICARE, SELFPAY | PROVIDERS: PCP Family Medicine; Visit Provider Family Medicine | DX: K56.600 Partial intestinal obstruction, unspecified as to cause (principal); R73.01 Impaired fasting glucose; Z13.30 Encounter for screening examination for mental health and behavioral disorders, unspecified | CPT/HCPCS: 96127; 99212 ==

== ENCOUNTER 2025-04-04 07:36 | Outpatient (REF) | payer MEDICARE, SELFPAY ==
--- OUTSIDE RECORDS SUMMARY | 2025-04-04 07:39 | XMS_ITS | Encounter Summary ---
Author Organization [facility] Address [address] [facility] [address] [place] [phone] Phone Care Team Providers Care Cement Mason Helper Name Role Phone Lucho Hairston MD Primary Care Provider Encounter Details Date Type Department Care Team (Late st Contact Info) Description 03/22/2025 Orders Only [facility] [address] [place] [id number] [address] [address] [email or web address] Left shoulder pain (Primary Dx) Social [...] Care Team (Late st Contact Info) Description 04/14/2025 10:30 AM EDT Office Visit [facility] [address] [place] [phone] Sandor Garcia MD, MAU [address] [address] [email or web address] documented as of this encounter Results * XR SHOULDER 2 VIEWS (LEFT) (03/28/2025 8:52 AM EDT) Anatomical Region Laterality Modality Shoulder Left Computed Radiogr aphy 03/28/2025 10:5 3 AM EDT Impressions 03/28/2025 10:54 AM EDT Chronic osseous remodeling of the greater tuberosity and acromion. There are several small ossific foci adjacent to the greater tuberosity and projecting along the acromiohumeral interval, unclear if relating to rotator cuff calcific tendinopathy, and/or small loose bodies. Mild narrowing of the acromiohumeral interval. 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 Mild osteophyte formation, but no significant joint space narrowing in the glenohumeral joint. Moderate dorsal spurring at the acromioclavicular joint. No evidence of acute, displaced fracture or dislocation. Narrative 03/28/2025 10:54 AM EDT XR SHOULDER 2 OR MORE VIEWS (LEFT) Referring clinician's provided indication for this examination in Epic: Pain COMPARISON: None Procedure Note Jeffrey Jaffe MD - 03/28/2025 XR SHOULDER 2 OR MORE VIEWS (LEFT) Referring clinician's provided indication for this examination in Epic:Pain COMPARISON: None IMPRESSION: Chronic osseous remodeling of the greater tuberosity and acromion. Thereare several small ossific foci adjacent to the greater tuberosity andprojecting along the acromiohumeral interval, unclear if relating torotator cuff calcific tendinopathy, and/or small loose bodies. Mildnarrowing of the acromiohumeral interval. Mild to moderate glenohumeraland acromioclavicular osteoarthritis. Mild osteophyte formation, but nosignificant joint space narrowing in the glenohumeral joint. Moderatedorsal spurring at the acromioclavicular joint. No evidence of acute,displaced fracture or dislocation. Jian eRyes DO IMG XR UPPER EXTREMITY Sadia l Result documented in this encounter Visit Diagnoses Diagnosis Left shoulder pain- Primary Pain in joint, shoulder region Left shoulder pain Pain in joint, shoulder region documented in this encounter Care Teams Cement Mason Helper Relationship Specialty Start Date End Date Lucho Hairston MD [address] [place] [address] PCP - General Family Medicine 05/02/24 documented as of this encounter Additional Source Comments The information contained in this document represents components of the legal health record. It is not the complete legal health record.[facility]
[2025-04-04 11:16] LABS: MANUAL DIFF FLAG NO
[2025-04-04 11:30] LABS: Hematocrit 44.1 % (42.0-52.0); Hemoglobin 14.6 g/dl (14.0-18.0); Imm Gran Abs Auto 0.01 X10*3/uL (0.00-0.03); Imm Gran Pct Auto 0.2 % (0.0-0.4); Lymphocytes Absolute Auto 1.6 X10*3/uL (1.2-4.9); Mean Corpuscular HGB Conc 33.1 g/dl (31.0-36.0); Mean Corpuscular Hemoglobin 30.5 pg (27.0-33.0); Mean Corpuscular Volume 92.3 fL (80.0-98.0); NRBC Abs Auto 0.000 X10*3/uL (0.0-0.012); NRBC Pct Auto 0.0 /100WBC (0.0-0.2); Platelet Count 273 X10*3/uL (160-400); Red Blood Count 4.78 X10*6/uL (4.60-5.80); White Blood Count 4.8 X10*3/uL (4.8-10.8)
[2025-04-04 11:41] LABS: Hemoglobin A1C 146.0035 umol/L; Total Hemoglobin (HGBA1C) 3789.6831 umol/L
[2025-04-04 11:58] LABS: Alanine Aminotransferase 29 U/L (0-40); Albumin Level 4.6 g/dL (3.5-5.0); Alkaline Phosphatase 50 U/L (39-117); Anion Gap 11 (12-20); Aspartate Amino Transferase 32 U/L (5-37); Blood Urea Nitrogen 16 mg/dL (9-16); Calcium 9.3 mg/dL (8.4-10.2); Carbon Dioxide 27 mmol/L (22-29); Chloride 106 mmol/L (96-108); Cholesterol 198 mg/dL (<200); Estimated Glomerular Filt Rate 58; HDL Cholesterol 39 mg/dL (>40); Potassium 4.2 mmol/L (3.3-5.1); Sodium 140 mmol/L (135-145); Total Protein 7.2 g/dL (6.5-8.0); Triglycerides 130 mg/dL (<150)
== END 2025-04-04 07:37 | disposition home or self-care (01) ==
LOC: HO.WFDLDS 07:36
PROVIDERS: Visit Provider Family Medicine
DX: Z00.00 Encounter for general adult medical examination without abnormal findings (principal); K56.600 Partial intestinal obstruction, unspecified as to cause; I25.10 Atherosclerotic heart disease of native coronary artery without angina pectoris; R73.01 Impaired fasting glucose
CPT/HCPCS: 36415; 80053; 80061; 83036; 83615; 84443; 85025

== ENCOUNTER 2025-06-21 08:27 | Outpatient (AMB) | payer MEDICARE, SELFPAY ==
--- NOTE | 2025-06-21 08:29 | MHC.PC.OV ---
Vital Signs 06/21/25 08:35 Height 5 ft 4 in Weight 149 lb 6 oz BMI 25.6 BP 130/69 Blood Pressure Location Lt brachial Position Sitting Respiration 16 Pulse 66 Pulse Source Pulse Oximeter Temp 97.4 F Temp Source Oral Pulse Oximetry (%) 97 Oxygen Delivery Method Room Air Intake Visit Reasons: f/u HTN, lipids Intake Note: patient here for follow up on HTN and lipids and would like to speak to you about some of his meds Digital Solution Architect Required: No Allergies amoxicillin Allergy (Mild, Verified 06/21/25 08:33) Rash Penicillins Allergy (Mild, Verified 06/21/25 08:33) Rash tramadol Adverse Reaction (Intermediate, Verified 06/21/25 08:33) Shakiness Tobacco use date assessed: 06/21/25 Fall risk assessment: No Falls in past year Last assessed Fall Risk: 06/21/25 Dental Screening Dental Screen Date: 06/21/25 Did you have a dental visit in the last 12 months?: Yes Did you have a dental problem in the last 6 months where you did not have access to dental care?: No Was dental information given to patient?: Patient has dentist HPI f/u HTN, lipids HPI Details 74 y/o male presents to f/u HTN, lipids. BP today 130/69, 66p. Hx of CAD. He is on metoprolol 12.5mg daily. Labs drawn 04/04/25. Reviewed labs with pt. A1c 5.7%. Triglycerides 130. TC 198. LDL 132. HDL low at 39. He is on Zetia 10mg daily. Reports ongoing shoulder pain. [facility] Medical History Cervicalgia Hyperlipidemia Hypertension Bilateral shoulder pain COPD (chronic obstructive pulmonary disease) Left hand pain Trigger finger, left ring finger Coronary artery disease Chronic low back pain Surgical History History of hemiarthroplasty of right shoulder Family History Other Substance abuse Social History Housing: House Alcohol intake: current Alcohol intake frequency: a few times a week Alcohol type: beer Patient Tobacco Use Status: Former Tobacco user e-Cigarette/Vaping Use: Never Used Second Hand Smoke Exposure: No service: No Current occupational status: retired Current occupation: Left hand dominant Cognitive needs: No Hearing needs: No Vision needs: No Questionnaire Thrive Questionnaire Date Thrive assessed: 03/24/25 I am a: Patient What is your living situation today?: I have a steady place to live Within the past 12 months, did the food you bought not last and you didn't have the money to get more?: Never true Within the past 12 months, did you worry whether your food would run out before you got money to buy more?: Never true Do you have trouble paying for medicines?: No Do you have trouble getting transportation to medical appointments?: No Do you have trouble paying your heating and electricity bill?: No Do you have trouble taking care of your child, family member or friend?: No Do you have trouble with day-to-day activities such as bathing, preparing meals, shopping, managing finances, etc.?: No Are you currently unemployed and looking for a job?: No Are you interested in more education?: No Please select the resources that you would like help with: None Currently or been in a relationship where the following occur: No concerns reported THRIVE Score: 0 JORDON-7 AMB Questionnaire JORDON-7 Date JORDON - 7 assessed: 03/16/25 Source: Developed by Drs. Emanuel Gates, Kristina Hermosillo, Jett Blankenship and colleagues, with an educational angel from [employer]. Review of Systems Const Denies chills, Denies fatigue, Denies fever(s), Denies headache(s) and Denies weakness ENT Denies dizziness and Denies headache(s) Card Denies dyspnea Resp Denies cough, Denies dyspnea, Denies wheezing and Denies other (shortness of breath) Musc Denies numbness and Denies tingling Neuro Denies dizziness, Denies headache(s), Denies numbness, Denies tingling and Denies weakness Psych Denies anxiety and Denies depression Endo Denies fatigue Aller/Immun Denies wheezing Physical exam (Primary Care) Vital Signs: Last Vital Signs Temp 97.4 F 06/21/25 08:35 Pulse 66 06/21/25 08:35 Resp 16 06/21/25 08:35 BP 130/69 10/15/25 08:35 Pulse Ox 97 06/21/25 08:35 Oxygen Delivery Method Room Air 06/21/25 08:35 BMI result Body Mass Index 25.6 Tobacco/Smoking Status: Tobacco use Status Tobacco use date assessed 06/21/25 06/21/25 08:39 Patient Tobacco Use Status Former Tobacco user 06/21/25 08:39 e-Cigarette/Vaping Use Never Used 06/21/25 08:39 Thrive Assessment: Date of Thrive Assessment Date Thrive assessed 03/24/25 06/21/25 08:39 Currently or been in a relationship where the following occur: No concerns reported Const General: well developed; No acute distress Nutritional Appearance: well nourished Orientation/consciousness: patient oriented x3 [facility] Head: Yes normocephalic and Yes atraumatic Eyes General: appearance normal, both eyes and all related structures Pupils: Equal, round and reactive pupils present EOM: EOMs intact bilaterally Resp Effort & Inspection: normal respiratory effort Neuro General: patient oriented x3 and gait normal Cranial nerves: Yes Equal, round and reactive pupils present Psych Affect: normal affect Coding Level of Care Code Est Pt Level 4 (02675) Diagnoses Hypertension I10 Coronary artery disease I25.10 Hyperlipidemia E78.5 Pre-diabetes R73.03 Bilateral shoulder pain M25.511; M25.512 Shoulder pain M25.519 Assessment & Plan Assessment & Plan (1) Hypertension: Code(s): I10 - Essential (primary) hypertension Category: Medical Plan: Blood pressure is fairly well controlled. Goal is less than 130/80 Continue current medication (2) Coronary artery disease: Code(s): I25.10 - Atherosclerotic heart disease of [place] coronary artery without angina pectoris Category: Medical Plan: Followed by Dr. Mariano Stress test is ordered He is on Zetia. Has not tolerated other statins or Repatha (3) Hyperlipidemia: Code(s): E78.5 - Hyperlipidemia, unspecified Category: Medical Plan: LDL cholesterol is greater than 70 Somewhat improved since starting Zetia but this is the only medication he has tolerated Follow-up with Cardiology as recommended Continue Zetia Encouraged dietary changes (4) Pre-diabetes: Code(s): R73.03 - Prediabetes Category: Medical Plan: A1c 5.7%. Pre diabetes Work on a diet low in sugars and starches Will continue to monitor (5) Bilateral shoulder pain: Code(s): M25.511 - Pain in right shoulder; M25.512 - Pain in left shoulder Category: Medical (6) Shoulder pain: Code(s): M25.519 - Pain in unspecified shoulder Category: Medical Plan Patient has ongoing, chronic bilateral shoulder pain as well as intermittent back pain We have used multiple medications and most recently intermittent Percocet tablets. This manages his pain. We have discussed that this can cause adverse effects effusion and constipation He is hydrating well and currently has had no further issues with constipation We have been using this medication on a less-intermittent bases and he will fill out a pain contract today. Also, I am referring him to pain management to look for other modalities for pain control as well. Orders: Referrals Pain Management Referral M25.511 - Pain in right shoulder, M25.512 - Pain in left shoulder Medications: New lorazepam MassPat Verified 0.5 mg PO BEDTIME PRN 15 tabs 0RF anxiety 30 days Discontinued zolpidem MassPat Verified Discontinued Reason: Doctor's Order 5 mg PO BEDTIME 30 days PRN 30 tabs 0RF sleep G47.9 - Sleep disorder, unspecified
[2025-06-21 08:35] VITALS: BP 130/69; PULSE 66; RESP 16; TEMP 36.3; O2SAT 97; BMI 25.6
== END 2025-06-21 09:12 | disposition home or self-care (01) ==
LOC: HO.HMCFM 08:28
PROVIDERS: PCP Family Medicine; Visit Provider Family Medicine
DX: I10 Essential (primary) hypertension (principal); I25.10 Atherosclerotic heart disease of native coronary artery without angina pectoris; E78.5 Hyperlipidemia, unspecified; R73.03 Prediabetes; M25.511 Pain in right shoulder; M25.512 Pain in left shoulder; M25.519 Pain in unspecified shoulder

== ENCOUNTER → 2025-06-21 08:27 | Outpatient (BNVA) | payer MEDICARE, SELFPAY | PROVIDERS: PCP Family Medicine; Visit Provider Family Medicine | DX: I10 Essential (primary) hypertension (principal); R73.03 Prediabetes; I25.10 Atherosclerotic heart disease of native coronary artery without angina pectoris; E78.5 Hyperlipidemia, unspecified; M25.512 Pain in left shoulder; M25.511 Pain in right shoulder | CPT/HCPCS: 99212 ==

== ENCOUNTER 2025-07-10 14:53 | Outpatient (AMB) | payer MEDICARE, SELFPAY ==
--- OUTSIDE RECORDS SUMMARY | 2013-05-29 23:00 | XMS_ITS | Encounter Summary ---
Author Organization Formerly [facility] Address [address] [place] [address] Phone Care Team Providers Care Stock Raiser Name Role Phone Unavailable Primary Care Provider Unavailabl e Encounter Details Date Type Department Care Team (Late st Contact Info) Description 05/30/2013 Hospital Encounter [facility],Outside Imaging [address] [place] [address] Unknown, Unknown, Social History Tobacco Use Types Packs/Day Years Used Date Smoking Tobacco: Former Cigarettes Smokeless Tobacco: Never Education Answer Date Recorded Are you interested in more education? Not on kiana e 05/02/2024 Are you concerned about learning? Not on file 05/02/2024 No 05/02/2024 No 05/02/2024 Digital Access Answer Date Recorded No 05/02/2024 No 05/02/2024 Reliable internet access at home? Not on file 05/02/2024 Device with a working camera? Not on file Sex and Gender Information Value Date Recorded Sex Assigned at Not on file Legal Sex Male 10:47 AM EDT Gender Identity Not on file Sexual Orientation Not on file documented as of this encounter Plan of Treatment Not on file documented as of this encounter Procedures Procedure Name Priority Date/Time Associated Diagnosis Comments MRI UPPER EXTREMITY OUTSIDE (NO INTERPRETATION) Routine 05/30/2013 12:00 AM EDT documented in this encounter Results * MRI Outside Upper Extremity (No Interpretation) (05/30/2013 12:00 AM EDT) Narrative SYSTEMGENERATED, DOCUMENTATION - 11/08/2024 10:24 AM EST This study is for PACS storage only and not for interpretation. us Unknown Unknown MD [facility] OUTSIDE IMAGING W/OUT INT ERPRETATION Final Result documented in this encounter Visit Diagnoses Not on filedocumented in this encounter Additional Source Comments The information contained in this document represents components of the legal health record. It is not the complete legal health record.Formerly [facility]
--- OUTSIDE RECORDS SUMMARY | 2013-07-28 | XMS_ITS | Encounter Summary ---
Author Organization Formerly [facility] Address [address] [place] [address] Phone Care Team Providers Care Lavatory Attendant Name Role Phone Unavailable Primary Care Provider Unavailabl e Encounter Details Date Type Department Care Team (Late st Contact Info) Description 07/28/2013 Hospital Encounter [facility],Outside Imaging [address] [place] [address] Unknown, Unknown, Social History Tobacco Use Types [...] MRI UPPER EXTREMITY OUTSIDE (NO INTERPRETATION) Routine 07/28/2013 12:00 AM EST documented in this encounter Results * MRI Outside Upper Extremity (No Interpretation) (07/28/2013 12:00 AM EST) Narrative SYSTEMGENERATED, DOCUMENTATION - 11/08/2024 10:24 AM EST This study is for PACS storage only and not for interpretation. us Unknown Unknown MD [facility] OUTSIDE IMAGING W/OUT INT ERPRETATION Final Result documented in this encounter Visit Diagnoses Not on filedocumented in this encounter Additional Source Comments The information contained in this document represents components of the legal health record. It is not the complete legal health record.Formerly [facility]
--- NOTE | 2025-07-10 14:59 | A.OFFVIS_ITS ---
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 The shoulder pain has been persistent, with a history of suprascapular Sprint PNS therapy, for which were removed this January and March. The patient re ports that the pain is particularly severe at night and is localized to the back of the shoulder. The patient has an artificial shoulder joint on the right side, which was replaced in 2013. He continues to experience weakness and pain in the shoulder. The patient is awaiting a procedure to aspirate fluid from the right shoulder as advised by [facility] who referred patient to local provider for this and he is awaiting for this. The patient has been prescribed pain medication, including Percocet, which he uses intermittently when the pain becomes severe. He reports taking half a pill at night to manage the pain, which provides some relief. The patient is also considering radiofrequency ablation if approved by insurance, as a potential treatment option for his pain. Denies any recent cough, cold, infection, fever or any other significant changes in medical history since last office visit. PRIOR: The patient is a 74-year-old male presenting for left suprascapular sprint remov al. The left shoulder shows improvement, with pain rated at 2/10, which is more pronounced at night. He reports significant improvement with daily activities and movements. He enjoys working in his backyard and gardening however continues to experiences right shoulder pain at night. His right shoulder pain with previous shoulder surgery was previously managed with Sprint PNS trial as well. 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 The dressing was removed today. Left lead insertion sites is clean, dry, intact, no swelling, no pathological discharge. Area was cleansed with Chloraprep. Light lead pulled with tip intact, lead removed entirely, including tip. Area was cleansed with Chloraprep, applied Bacitracin and covered with Sprint Tegaderm film and gauze dressing. Past Procedures: 01/12/25: Left suprascapular Sprint-90% ongoing pain relief; removed 03/09/25 12/22/24: Left suprascapular nerve block-90% pain relief for 2 days 11/24/24: Right suprascapular Sprint--60-70% ongoing pain relief; removed 01/19/25 07/21/24: Right suprascapular nerve block- 50-60% pain relief for 6 hours PRIOR: Patient is a pleasant 73-year-old gentleman with a 10 year history of right shoulder replacement at [place] and persistent mild dysfunctional right rotator cuff, cervical fusion with rods in place at C5-C6, cervical degenerative disc disease, left shoulder pain, presents today for initial evaluation of right shoulder pain worse night. He reports work related injury in 2003 due to heavy lifting which injured his neck and shoulder. 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 Patient was referred to us by Dr. Olivas, [facility] as he does not indicate a large revision shoulder arthroplasty surgery. Patient reports he was offered reversal shoulder surgery at [facility] but is hesitant to undergo any additional surgery. Right shoulder pain has been localized to lateral and anterior aspects with mild tenderness. Pain is worse at night and during the day with activities and movements. Reports disrupted sleep due to constant need to reposition. He also has left shoulder pain due to OA. Reports remote history of therapeutic injections with mixed results. Neck pain is worse with extension and limited on the left, associated with increased pain in shoulders and muscle stiffness. Patient reports oral and topical medications provide temporary relief and allow slightly improved functioning. Chronic shoulder pain has been resistant to conservative treatments. Patient also repor ts significant low back pain, worse with lumbar extension and axial rotations and relieved by bending forward. Denies any fever or chills, unintentional weight loss, dizziness, shortness of breath, chest pain, weakness, paresthesias, bladder or bowel dysfunction or saddle anesthesia. Location: Bilateral shoulder pain, right>left, neck, low back pain into LLE Duration: Chronic pain since 2003 due to heavy work Characteristics of symptom or complaint: Throbbing, tiring, radiating, dull, sore, hurting, heavy Aggravating or associated factors: Sleeping on sides, movements, pulling, lifting Relieving factors: Changing positions, tramadol, gabapentin, modifying activities Treatment: Injections, PT, Chiropractic, massage, acupuncture, TENS, home traction [facility] Medical History Cervicalgia Hyperlipidemia Hypertension Bilateral shoulder pain COPD (chronic obstructive pulmonary disease) Left hand pain Trigger finger, left ring finger Coronary artery disease Chronic low back pain Surgical History History of hemiarthroplasty of right shoulder Family History Other Substance abuse Social History Housing: House Alcohol intake: current Alcohol intake frequency: a few times a week Alcohol type: beer Patient Tobacco Use Status: Former Tobacco user e-Cigarette/Vaping Use: Never Used Second Hand Smoke Exposure: No service: No Current occupational status: retired Current occupation: Left hand dominant Cognitive needs: No Hearing needs: No Vision needs: No Review of Systems Const All systems reviewed & are unremarkable except as noted in HPI and below Physical Exam Vital Signs: Last Vital Signs Pulse 63 07/10/25 15:13 BP 162/78 H 07/10/25 15:13 Pulse Ox 97 07/10/25 15:13 Oxygen Delivery Method Room Air 07/10/25 15:13 BMI result Body Mass Index 26.0 General: Appears afebrile. Alert and oriented. Mood and affect appropriate. Follows and participates in conversation appropriately. Respiratory effort is unlabored. No cough. Able to transition from sit to stand unassisted. Ambulates with bilaterally normal heel strike and toe off. Neck Neck: Yes normal visual inspection, Yes no lymphadenopathy, Yes supple, No anterior neck swelling, Yes no JVD, No prominent supraclavicular fat pad and No prominent dorsocervical fat pad Back/Spine/Pelvis Cervical Spine: cervical ROM normal, cervical muscular tenderness, pain with cervical ROM and No Cervical spine tenderness Extrem General: Yes capillary refill normal, Yes no clubbing, cyanosis or edema and Yes no calf tenderness Right upper extremity: shoulder/upper arm (Limited ROM, moderate pain with overhead reaches.) Details: normal to inspection and tenderness Location: over the subacromial bursa; no swelling, no ecchymosis, no crepitus and no unusual warmth Left upper extremity: shoulder/upper arm (Limited ROM with internal/external rotations.) Details: inspection abnormal, tenderness Location: of the A-C joint and over the subacromial bursa and crepitus; no swelling, no ecchymosis and no unsual warmth Results Reviewed Results Reviewed: XR SHOULDER, RIGHT 12/24/23 FINDINGS: Bony alignment and mineralization are normal. There is an intact right shoulder arthroplasty, without hardware failure, loosening or periprosthetic fracture. The arthroplasty is well seated within the glenoid. The acromioclavicular and coracoclavicular intervals are normal. No soft tissue calcifications or foreign body seen. There is no right pneumothorax. IMPRESSION: An intact right shoulder arthroplasty is seen, without hardware failure, loosening or periprosthetic fracture. Assessment & Plan Assessment & Plan (1) Cervicalgia: Code(s): M54.2 - Cervicalgia Category: Medical Plan The plan includes scheduling Left Diagnostic suprascapular, axillary & lateral pectoral nerve blocks with local and fluoroscopy for potential radiofrequency ablation (RFA) for the chronic shoulder pain. Expectations, risks and benefits were reviewed. Patient is aware he will be contacted to schedule this procedure. The patient is advised to continue Percocet as needed for pain management, ensuring adherence to the prescribed dosage per opioid contract through his PCP. Follow-up with the applications specialist is advised to discuss potential surgical interventions for ongoing right shoulder pain if necessary. Cervical spine xray to rule out assess degree of degenerative changes, any subluxation, listhesis, compression fractures or pars defects and rule out ongoing shoulder symptoms extending from cervical spine. All questions and concerns have been answered and patient agreed with the treatment plan. Follow up after left shoulder diagnostic injections and sooner as needed. Patient was informed and verbally consented to the use of an ambient scribe for clinic note documentation during this visit. Orders: Orders XR cervical spine 4V Today M54.2 - Cervicalgia Coding Level of Care Code Est Pt Level 4 (37486) Complex EM visit Add On G2211 Diagnoses Cervicalgia M54.2
[2025-07-10 15:13] VITALS: BP 162/78; PULSE 63; O2SAT 97; BMI 26.0
--- OUTSIDE RECORDS SUMMARY | 2025-07-10 16:20 | XMS_ITS | Encounter Summary ---
Author Organization [facility] Address [address] [place] [phone] Phone Care Team Providers Care Network Cabler Name Role Phone Lucho Hairston MD Primary Care Provider Encounter Details Date Type Department Care Team (Late st Contact Info) Description 01/11/2025 Procedure Pass [facility], Ct Scan - [address] [id number] Social History Tobacco Use Types Packs/Day Years [...] on file documented as of this encounter Visit Diagnoses Not on filedocumented in this encounter Care Teams Network Cabler Relationship Specialty Start Date End Date Lucho Hairston MD PCP - General Family Medicine 05/02/24 documented as of this encounter Additional Source Comments The information contained in this document represents components of the legal health record. It is not the complete legal health record.[facility]
--- OUTSIDE RECORDS SUMMARY | 2025-07-10 16:20 | XMS_ITS | Clinical Summary ---
Author Organization [facility] Address [address] [place] [phone] Phone Care Team Providers Care Steel Post Installer Name Role Phone Lucho Hairston MD Primary Care Provider Allergies Active Allergy Reactions Criticality Noted Date Comments Amoxicillin Rash,Headaches Low 05/02/2024 Penicillins Hives 05/02/2024 Medications zolpidem (AMBIEN) 5 MG tablet Take 5 mg by mouth nightly at bedtime as needed. 4 Active tamsulosin (FLOMAX) 0.4 mg Cap 4 Active omeprazole (PRILOSEC) 20 MG capsule Take 1 capsule by mouth every morning. 4 Active metoprolol succinate (TOPROL-XL) 25 MG 24 hr tablet Take 12.5 mg by mouth daily. 4 Active gabapentin (NEURONTIN) 600 MG tablet Take 1 tablet by mouth 2 (two) times a day. 4 Active ezetimibe (ZETIA) 10 mg tablet Take 1 tablet by mouth every morning. 4 Active diclofenac sodium (VOLTAREN) 1 % Gel PLEASE SEE ATTACHED FOR DETAILED DIRECTIONS 4 Active aspirin 81 MG EC tablet Take 81 mg by mouth daily. Active cyclobenzaprine (FLEXERIL) 10 MG tablet Take 10 mg by mouth 3 (three) times a day as needed for muscle spasms. Active naproxen (NAPROSYN) 500 MG tablet Take 1 tablet (500 mg total) by mouth 2 (two) times a day for 3 days. Then twice daily as needed for pain, inflammation 20 tablet Active Active Problems No known active problems Encounters Date Type Department Care Team Description 04/14/2025 10:30 AM EDT Office Visit [address] [address] Sandor Garcia MD, MAU History of total shoulder replacement, right (Primary Dx) 04/14/2025 9:38 AM EDT - 04/14/2025 11:59 PM EDT Hospital Encounter [facility] - Diagnostic Radiology, [address] [place] [address] Sandor Garcia MD, MAU Discharge Disposition: Home or Self Care 04/14/2025 Orders Only [address] [address] Sharee Reza [place] History of arthroplasty of right shoulder (Primary Dx) from Last 3 Months Social History Tobacco Use Types Packs/Day Years Used Date Smoking Tobacco: Former Cigarettes Smokeless Tobacco: Never Tobacco Cessation:Counseling Given: Not Answered Education Answer Date Recorded Are you interested [...] on file Sexual Orientation Not on file Last Filed Vital Signs Vital Sign Reading Time Taken Comments Blood Pressure 136/90 05/02/2024 11:06 AM EDT Pulse 85 05/02/2024 11:06 AM EDT Temperature 36.5 C (97.7 F) 05/02/2024 11:06 AM EDT Respiratory Rate 18 05/02/2024 11:06 AM EDT Oxygen Saturation 98% 05/02/2024 11:06 AM EDT Inhaled Oxygen Concentration - - Weight - - Height - - Body Mass Index - - Plan of Treatment Health Maintenance Due Date Last Done Comments LIPID PANEL 1949 DEPRESSION SCREENING 1961 SMOKING Hx and SMOKELESS TOBACCO SCREENING 1962 HEPATITIS C SCREENING 1967 COLOGUARD 1994 COLONOSCOPY 1994 COLORECTAL CANCER SCREENING 1994 FIT TEST 1994 FOBT 1994 SIGMOIDOSCOPY 1994 VIRTUAL COLONOSCOPY 1994 INFLUENZA VACCINE (#1) 2025 , 05/18/2023, 05/24/2022, Additional history exists COVID-19 VACCINE ( season) 2025 05/18/2024, 05/30/2023, 01/03/2023, Additional history exists Adult Td,Tdap Booster 12/24/2031 12/23/2021, 005 RSV VACCINE Completed 05/26/2023 PNEUMOCOCCAL VACCINES (50+ years) Completed 06/09/2023, 05/24/2022, 06/12/2008 ZOSTER VACCINES Completed 06/09/2023, 09/22/2022 HEPATITIS A VACCINES Aged Out No long er eligible based on patient's age to complete this topic HIB VACCINES Aged Out No longer eligi ble based on patient's age to complete this topic MENINGOCOCCAL VACCINES (ACWY) Aged Out No longer eligible based on patient's age to complete this topic MENINGOCOCCAL VACCINES (B) Aged Out N o longer eligible based on patient's age to complete this topic Medical Devices Not on file Procedures Procedure Name Priority Date/Time Associated Diagnosis Comments XR SHOULDER 2 VIEWS (RIGHT) Routine 04/14/2025 10:05 AM EDT History of arthroplasty of right shoulder from Last 3 Months Results * XR SHOULDER 2 VIEWS (RIGHT) (04/14/2025 10:05 AM EDT) Anatomical Region Laterality Modality Shoulder Right Radiographic Reina ging 04/14/2025 11:0 3 AM EDT Impressions 04/15/2025 11:24 AM EDT Right total shoulder arthroplasty with evidence for glenoid remodeling/osteolysis and possible slight superior migration of the humeral head component, grossly similar to but much better assessed on prior CT. ATTESTATION: I, Dr. Raymon Tanner as teaching physician, have reviewed the images for this case and if necessary edited the report originally created by Shay Felipe. Narrative 04/15/2025 11:24 AM EDT XR SHOULDER 2 OR MORE VIEWS (RIGHT) Referring clinician's provided indication for this examination in [facility]: Pain COMPARISON: XR SHOULDER 2 OR MORE VIEWS (RIGHT) 2024-; CT SHOULDER WITHOUT CONTRAST (RIGHT) 2024- FINDINGS: No acute fracture or dislocation. Total shoulder arthroplasty with evidence for osseous remodeling and osteolytic changes of the glenoid, much better assessed on prior CT. Possible interval slight superior migration of the humeral head component relative to the glenoid compared to the September 2024 radiograph, may be projectional. Intact acromioclavicular joint with adjacent small corticated ossific body, nonspecific but possibly post-traumatic. Similar multifocal mineralization along the medial glenoid. Procedure Note Raymon Tanner MD - 04/15/2025 XR SHOULDER 2 OR MORE VIEWS (RIGHT) Referring clinician's provided indication for this examination in [facility]:Pain COMPARISON: XR SHOULDER 2 OR MORE VIEWS (RIGHT) 2024-; CT SHOULDERWITHOUT CONTRAST (RIGHT) 2024- FINDINGS: No acute fracture or dislocation. Total shoulder arthroplasty with evidence for osseous remodeling andosteolytic changes of the glenoid, much better assessed on prior CT. Possible interval slight superior migration of the humeral head componentrelative to the glenoid compared to the September 2024 radiograph, may beprojectional. Intact acromioclavicular joint with adjacent small corticated ossificbody, nonspecific but possibly post-traumatic. Similar multifocal mineralization along the medial glenoid. IMPRESSION: Right total shoulder arthroplasty with evidence for glenoidremodeling/osteolysis and possible slight superior migration of thehumeral head component, grossly similar to but much better assessed onprior CT. ATTESTATION: I, Dr. Raymon Tanner as teaching physician, have reviewed theimages for this case and if necessary edited the report originally createdby Shay Felipe. Sandor Garcia MD, MAU IMG XR UPPER EXTREMITY Fin al Result from Last 3 Months Insurance [place] [employer] [place] PPO REPLAC[place] [employer] [place] [employer] [place] [employer] [place] [place] PPO REPLACEMENT [employer] [place] [employer] [place] PPO REPLACEMENT [place] [place] [employer] [place] PPO REPLACEMENT [employer] [place] [employer] [place] PPO REPLACEMENT [facility] INSURANCE Care Teams Steel Post Installer Relationship Specialty Start Date End Date Lucho Hairston MD PCP - General Family Medicine 05/02/24 Additional Source Comments The information contained in this document represents components of the legal health record. It is not the complete legal health record.[facility]
== END 2025-07-10 15:26 | disposition home or self-care (01) ==
PROVIDERS: PCP Family Medicine; Visit Provider Nurse Practitioner Family
DX: M54.2 Cervicalgia (principal)
CPT/HCPCS: 99214; G2211

== ENCOUNTER → 2025-07-10 14:53 | Outpatient (BNVA) | payer MEDICARE, SELFPAY | PROVIDERS: PCP Family Medicine; Visit Provider Nurse Practitioner Family | DX: M25.511 Pain in right shoulder (principal); M25.512 Pain in left shoulder; M54.2 Cervicalgia; M75.101 Unspecified rotator cuff tear or rupture of right shoulder, not specified as traumatic; M12.811 Other specific arthropathies, not elsewhere classified, right shoulder; Z96.611 Presence of right artificial shoulder joint | CPT/HCPCS: 99212 ==